=== PATIENT | male | born 1960 | race Caucasian/White ===

== ENCOUNTER 2016-04-24 09:52 | Inpatient (IN) | payer OTHER ==
[~2016-04-24] VITALS: Ht 177.8 cm; Wt 72.7 kg
[~2016-04-24 09:52] MED LIST: ASCO500C7 PO; BACL20TA PO; DIAZ10TA4 PO; FENO145T19 PO; FLUT16SP17 NASAL; GABA300C16 PO; METF-382 PO; MULTI PO; SAN30GM TOP; [UNRECOGNIZED DRUG - CODE] IV*
[2016-04-24] MEDS ORDERED: CEFEPIME 1GM/50 ML (PMX) 50 ML IVPB ONE (10:30)
[2016-04-24] MEDS ORDERED: IBUPROFEN 600 MG TAB PO ONE (10:30)
[2016-04-24] MEDS ORDERED: SODIUM CHLORIDE 0.9% 1L BAG IV* STA (10:30)
[2016-04-24] MEDS ORDERED: VANCOMYCIN 1 GM (PMX) 250 ML IVPB ONE (10:30)
--- NOTE | 2016-04-24 10:54 | RADRPT ---
PROCEDURE: Chest Radiograph. CLINICAL INDICATION: Sepsis TECHNIQUE: Single frontal chest radiograph. COMPARISON: None available FINDINGS: The heart is magnified. The cardiomediastinal silhouette is within normal limits. No infiltrate o r effusion is seen. The bones are intact. IMPRESSION: No evidence of acute cardiopulmonary disease. RPTAT: KK .Grey Mathews MD, MD Date Time Electronically viewed and signed by .Grey Mathews MD, MD on 04/24/2016 10:54 .B/
[2016-04-24] MEDS ORDERED: ALBU18HF INHALATION (11:30)
[2016-04-24] MEDS ORDERED: METF500T3 PO (11:31)
[2016-04-24] MEDS ORDERED: FENO145T19 PO (11:31)
[2016-04-24] MEDS ORDERED: BACL20TA PO (11:31)
[2016-04-24] MEDS ORDERED: GABA300C16 PO (11:31)
[2016-04-24] MEDS ORDERED: FLUT16SP17 NASAL (11:32)
[2016-04-24] MEDS ORDERED: DIPH25CA6 PO (11:32)
[2016-04-24 11:48] LABS: BASOPHILS % 0.2 % (0.0-2.0); EOSINOPHILS # 0.1 10^3/ul (0.0-0.5); EOSINOPHILS % 1.5 % (0.0-7.0); HEMATOCRIT 34.7 % (42.0-52.0); LYMPHOCYTES # 1.3 10^3/ul (0.8-2.9); LYMPHOCYTES % 15.4 % (15.0-51.0); MEAN CORPUSCULAR HEMOGLOBIN 31.7 pg (29.0-33.0); MEAN CORPUSCULAR HGB CONC 34.7 g/dl (32.0-37.0); MEAN CORPUSCULAR VOLUME 91.4 fl (82.0-101.0); MEAN PLATELET VOLUME 8.8 fl (7.4-10.4); MONOCYTE # 0.6 10^3/ul (0.3-0.9); NEUTROPHIL # 6.2 10^3/ul (1.6-7.5); NEUTROPHILS % 75.9 % (39.0-77.0); PLATELET COUNT 176 10^3/UL (140-440); RED BLOOD COUNT 3.79 10^6/ul (4.70-6.10); RED CELL DISTRIBUTION WIDTH 13.6 % (11.5-14.5); UNCORRECTED WBC 8.2 10^3/ul (4.8-10.8); WHITE BLOOD COUNT 8.2 10^3/ul (4.8-10.8)
[2016-04-24 11:49] LABS: INR 0.97; PROTIME 12.9 Sec (12.2-14.2)
[2016-04-24 11:50] LABS: CONDITION 1; PARTIAL THROMBOPLASTIN TIME 37.5 Sec (25.0-35.0)
[2016-04-24 11:51] LABS: ALBUMIN 3.8 g/dl (3.3-4.9); CHLORIDE 96 mmol/L (97-110); SODIUM 137 mmol/L (135-144)
[2016-04-24 11:52] LABS: POTASSIUM 3.4 mmol/L (3.5-5.1)
[2016-04-24 11:53] LABS: ADD UMIC YES; URINE BILIRUBIN (Dip) NEGATIVE (NEGATIVE); URINE BLOOD (Dip) TRACE (NEGATIVE); URINE COLOR LT. YELLOW (YELLOW); URINE GLUCOSE (Dip) NEGATIVE (NEGATIVE); URINE KETONES (Dip) NEGATIVE (NEGATIVE); URINE LEUKOCYTE ESTERASE (Dip) 3+ (NEGATIVE); URINE NITRITE (Dip) NEGATIVE (NEGATIVE); URINE TOTAL PROTEIN (Dip) NEGATIVE (NEGATIVE); URINE UROBILINOGEN (Dip) 0.2 E.U./dL (0.1-1.0)
[2016-04-24 11:54] LABS: ALANINE AMINOTRANSFERASE 25 IU/L (13-69); ALBUMIN/GLOBULIN RATIO 1.11; ALKALINE PHOSPHATASE 65 IU/L (42-121); ANION GAP 15 (8-16); ASPARTATE AMINO TRANSFERASE 17 IU/L (15-46); BILIRUBIN,INDIRECT 0.3 mg/dl (0-1.1); BILIRUBIN,TOTAL 0.3 mg/dl (0.2-1.3); BLOOD UREA NITROGEN 9 mg/dl (7-20); CALCIUM 9.4 mg/dl (8.4-10.2); CARBON DIOXIDE 29 mmol/L (21-31); GLUCOSE 104 mg/dl (70-220); TOTAL PROTEIN 7.2 g/dl (6.1-8.1)
[2016-04-24 12:01] LABS: BACTERIA,URINE MODERATE
[2016-04-24 12:10] LABS: TROPONIN-I < 0.012 ng/ml (0.00-0.12)
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
[2016-04-24] MEDS ORDERED: POTASSIUM CHLORIDE (SR) 20 MEQ TAB PO STA (14:01)
[2016-04-24] MEDS: DOCUSATE SODIUM 100 MG CAP PO SCH ×2 (14:30→22:03)
[2016-04-24] MEDS ORDERED: ONDANSETRON 4 MG INJ IV PRN (14:30)
[2016-04-24] MEDS ORDERED: ALBUTEROL HFA 8 GM INHALER INH PRN (14:30)
[2016-04-24] MEDS ORDERED: VANCOMYCIN IV PER PHARMACY XX SCH (14:30)
[2016-04-24] MEDS ORDERED: morphine 2 MG INJ IV PRN (14:30)
[2016-04-24] MEDS ORDERED: DIPHENHYDRAMINE 25 MG CAP PO PRN (14:30)
[2016-04-24] MEDS: FAMOTIDINE 20 MG TAB PO SCH ×2 (14:39→22:03)
[2016-04-24] MEDS ORDERED: GLUCOSE GEL 15 GRAM TUBE BUCCAL PRN (15:00)
[2016-04-24] MEDS ORDERED: GLUCAGON 1 MG INJ IM PRN (15:00)
[2016-04-24] MEDS ORDERED: DEXTROSE 50% 50 ML SYRINGE IV PRN ×2 (15:00)
[2016-04-24] MEDS ORDERED: GLUCOSE GEL 15 GRAM TUBE PO PRN ×2 (15:00)
[2016-04-24] MEDS: SOD CHLORIDE 0.9% 1,000 ML IV SCH ×2 (15:50→22:02)
[2016-04-24 17:00] VITALS: TEMP 98.5
[2016-04-24] MEDS: INSULIN ASPART [NOVOLOG] 3 ML PEN SC SCH ×2 (18:00→21:00)
[2016-04-24] MEDS: metFORMIN 500 MG TAB PO SCH (18:31)
[2016-04-24 18:58] VITALS: BP 152/81; PULSE 74; RESP 18
[2016-04-24 18:59] VITALS: Ht 177.8 cm; Wt 72.7 kg
[2016-04-24 19:14] VITALS: PULSE 75
[2016-04-24 19:53] VITALS: BP 149/79; RESP 18
[2016-04-24 20:47] VITALS: PULSE 70
[2016-04-24] MEDS: FENOFIBRATE 145 MG TAB PO SCH (22:03)
[2016-04-24] MEDS: GABAPENTIN 300 MG CAP PO SCH (22:03)
[2016-04-24] MEDS: VANCOMYCIN 1 GM in NS 250 ML IVPB SCH (22:03)
[2016-04-24] MEDS: ENOXAPARIN 30 MG/0.3 ML SYG SC SCH (22:15)
[2016-04-24 22:54] VITALS: BP 156/82; RESP 18
[2016-04-24] MEDS: BACLOFEN 10 MG TAB PO SCH (23:00)
[2016-04-24] MEDS: FLUTICASONE 0.05% 16 GM NAS SPRAY NASAL SCH (23:00)
[2016-04-25] MEDS: AZTREONAM 1 GM/NS (PMX) 50 ML IVPB SCH ×3 (00:43→21:34)
[2016-04-25] MEDS: SOD CHLORIDE 0.9% 1,000 ML IV SCH ×3 (04:41→17:20)
[2016-04-25 06:03] LABS: BASOPHILS % 0.6 % (0.0-2.0); EOSINOPHILS # 0.2 10^3/ul (0.0-0.5); EOSINOPHILS % 4.1 % (0.0-7.0); HEMATOCRIT 32.3 % (42.0-52.0); LYMPHOCYTES # 0.8 10^3/ul (0.8-2.9); MEAN CORPUSCULAR HEMOGLOBIN 31.9 pg (29.0-33.0); MEAN CORPUSCULAR HGB CONC 34.1 g/dl (32.0-37.0); MEAN CORPUSCULAR VOLUME 93.6 fl (82.0-101.0); MEAN PLATELET VOLUME 8.4 fl (7.4-10.4); MONOCYTE # 0.4 10^3/ul (0.3-0.9); MONOCYTES % 9.5 % (0.0-11.0); NEUTROPHILS % 67.8 % (39.0-77.0); PLATELET COUNT 168 10^3/UL (140-440); RED BLOOD COUNT 3.45 10^6/ul (4.70-6.10); RED CELL DISTRIBUTION WIDTH 13.9 % (11.5-14.5); UNCORRECTED WBC 4.4 10^3/ul (4.8-10.8); WHITE BLOOD COUNT 4.4 10^3/ul (4.8-10.8)
[2016-04-25 06:21] LABS: CONDITION 1
[2016-04-25 06:27] LABS: POTASSIUM 3.8 mmol/L (3.5-5.1)
[2016-04-25 06:29] LABS: CREATININE 0.44 mg/dl (0.61-1.24)
[2016-04-25 06:30] LABS: CALCIUM 8.7 mg/dl (8.4-10.2); MAGNESIUM 1.4 mg/dl (1.7-2.5)
[2016-04-25 07:44] VITALS: BP 141/89; RESP 18
[2016-04-25] MEDS: INSULIN ASPART [NOVOLOG] 3 ML PEN SC SCH ×4 (07:47→21:00)
[2016-04-25] MEDS: DOCUSATE SODIUM 100 MG CAP PO SCH ×2 (08:22→21:35)
[2016-04-25] MEDS: FAMOTIDINE 20 MG TAB PO SCH ×2 (08:22→21:35)
[2016-04-25] MEDS: metFORMIN 500 MG TAB PO SCH ×2 (08:22→17:19)
[2016-04-25] MEDS: GABAPENTIN 300 MG CAP PO SCH ×3 (08:22→21:35)
[2016-04-25] MEDS: BACLOFEN 10 MG TAB PO SCH ×3 (08:22→21:35)
[2016-04-25] MEDS: FENOFIBRATE 145 MG TAB PO SCH ×2 (08:22→21:35)
[2016-04-25] MEDS: ENOXAPARIN 30 MG/0.3 ML SYG SC SCH (08:29)
[2016-04-25] MEDS: VANCOMYCIN 1 GM in NS 250 ML IVPB SCH (10:04)
[2016-04-25] MEDS ORDERED: MAGNESIUM SULFATE 2 GM/50 ML 50 ML IVPB ONE (11:00)
[2016-04-25 11:29] LABS: ADD UMIC YES; URINE BILIRUBIN (Dip) NEGATIVE (NEGATIVE); URINE BLOOD (Dip) 2+ (NEGATIVE); URINE COLOR LT. YELLOW (YELLOW); URINE GLUCOSE (Dip) NEGATIVE (NEGATIVE); URINE KETONES (Dip) NEGATIVE (NEGATIVE); URINE LEUKOCYTE ESTERASE (Dip) 2+ (NEGATIVE); URINE NITRITE (Dip) NEGATIVE (NEGATIVE); URINE TOTAL PROTEIN (Dip) NEGATIVE (NEGATIVE); URINE UROBILINOGEN (Dip) 0.2 E.U./dL (0.1-1.0)
[2016-04-25 12:19] LABS: BACTERIA,URINE MODERATE
[2016-04-25] MEDS ORDERED: VANCOMYCIN 1 GM in NS 250 ML IVPB SCH (18:00)
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
[2016-04-25 19:26] VITALS: BP 126/76; RESP 20
[2016-04-25 20:00] VITALS: BP 130/62; RESP 18
[2016-04-25] MEDS: FLUTICASONE 0.05% 16 GM NAS SPRAY NASAL SCH (21:34)
[2016-04-26] MEDS: SOD CHLORIDE 0.9% 1,000 ML IV SCH ×2 (05:51→14:30)
[2016-04-26 07:06] LABS: POTASSIUM 3.4 mmol/L (3.5-5.1)
[2016-04-26 07:08] LABS: CREATININE 0.48 mg/dl (0.61-1.24)
[2016-04-26 07:09] LABS: CALCIUM 8.8 mg/dl (8.4-10.2)
[2016-04-26 07:11] LABS: BASOPHILS % 0.4 % (0.0-2.0); EOSINOPHILS # 0.2 10^3/ul (0.0-0.5); EOSINOPHILS % 4.7 % (0.0-7.0); HEMATOCRIT 33.2 % (42.0-52.0); HEMOGLOBIN 11.5 g/dl (14.0-18.0); LYMPHOCYTES # 1.2 10^3/ul (0.8-2.9); LYMPHOCYTES % 24.9 % (15.0-51.0); MEAN CORPUSCULAR HEMOGLOBIN 32.1 pg (29.0-33.0); MEAN CORPUSCULAR HGB CONC 34.6 g/dl (32.0-37.0); MEAN CORPUSCULAR VOLUME 92.7 fl (82.0-101.0); MEAN PLATELET VOLUME 8.2 fl (7.4-10.4); MONOCYTE # 0.4 10^3/ul (0.3-0.9); MONOCYTES % 8.5 % (0.0-11.0); NEUTROPHIL # 2.9 10^3/ul (1.6-7.5); NEUTROPHILS % 61.5 % (39.0-77.0); PLATELET COUNT 206 10^3/UL (140-440); RED BLOOD COUNT 3.58 10^6/ul (4.70-6.10); RED CELL DISTRIBUTION WIDTH 13.6 % (11.5-14.5); UNCORRECTED WBC 4.7 10^3/ul (4.8-10.8); WHITE BLOOD COUNT 4.7 10^3/ul (4.8-10.8)
[2016-04-26] MEDS: INSULIN ASPART [NOVOLOG] 3 ML PEN SC SCH ×2 (07:34→12:15)
[2016-04-26 07:37] VITALS: BP 134/73; RESP 20
[2016-04-26 07:39] LABS: CONDITION 1
[2016-04-26] MEDS: FENOFIBRATE 145 MG TAB PO SCH (08:27)
[2016-04-26] MEDS: DOCUSATE SODIUM 100 MG CAP PO SCH (08:27)
[2016-04-26] MEDS: metFORMIN 500 MG TAB PO SCH (08:27)
[2016-04-26] MEDS: GABAPENTIN 300 MG CAP PO SCH ×2 (08:28→12:25)
[2016-04-26] MEDS: FAMOTIDINE 20 MG TAB PO SCH (08:28)
[2016-04-26] MEDS: BACLOFEN 10 MG TAB PO SCH ×2 (08:28→12:26)
[2016-04-26] MEDS: ENOXAPARIN 30 MG/0.3 ML SYG SC SCH (08:34)
[2016-04-26] MEDS: AZTREONAM 1 GM/NS (PMX) 50 ML IVPB SCH (08:49)
[2016-04-26] MEDS ORDERED: VANCOMYCIN 1 GM in NS 250 ML IVPB SCH (10:00)
--- NOTE | 2016-04-26 10:08 | PDOCDIS ---
Discharge Instructions DIAGNOSIS Discharge Diagnosis: Urinary tract infection CONDITION Patient Condition: Stable HOME CARE INSTRUCTIONS: Special Diet: 1800 ADA FOLLOW UP/APPOINTMENTS Appointments Call Dr Walker's office for routine followup and Catheter care Name, Degree: Renan Walker MD Specialty: Urology Comments: Office Address : [address] [facility] [address] [place] [id number] Office OTHER ORDERS: Other Orders: Please stop smoking tobacco and Cocaine!!! If you have already stopped, Good for you!!!. It is however an ongoing process. If you need help or resources, please let someone know before you leave. We are here to help you. It has been associated with a lot of disease processes and is not favorable for healing. LEXUS MEI Apr 26, 2016 10:08
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
[2016-04-26] MEDS ORDERED: POTASSIUM CHLORIDE 250 ML IVPB ONE (11:30)
[2016-04-26] MEDS ORDERED: LEVO500T10 PO (14:24)
--- NOTE | 2016-04-26 15:16 | PN ---
DATE: 04/26/2016 SUBJECTIVE: The patient has a suprapubic tube that needs to be changed and a urinary tract infectio n that is being treated. PHYSICAL EXAMINATION: GENERAL: The patient is alert, awake, and comfortable. VITAL SIGNS: Temperature is 98.2, pulse 67, respirations 20, blood pressure 134/73. ABDOMEN: The suprapubic tube is draining well, clear urine. CBC shows a white count of 4.7, hemoglobin 11.5, hematocrit 33.2. BUN is 8, creatinine is 0.48. So dium 145, potassium 3.4, chloride 105, CO2 25. The urine culture shows gram-negative rods and mixed gram-positive organisms, and this is most likely colonization of the suprapubic tract. From a urological standpoint, he is doing well. If we plan to send him home that is okay with me. Hi s suprapubic tube needs to be changed in about 2 weeks, and his has been changing it every 2 we eks at home. She was trained to do that before and she will continue to do that as well. If there is a need for him to come and see me in the office, then they will have to refer him from his [facility]. Dictated By: SISI BRIONES/SANYA Conf#: [id number] DID#: [id number]
== END 2016-04-26 19:00 | disposition home or self-care (01) | DRG 698 ==
LOC: E/R 09:52 → MERGE 12:19 → TEL 12:19 → MS2 22:45
PROVIDERS: ADMIT Family Medicine; ATTEND Family Medicine
PROC: 0T2BX0Z Change Drainage Device in Bladder, External Approach (ICD-10-PCS; principal; 2016-04-24)
DX: N99.511 Cystostomy infection (principal); L89.313 Pressure ulcer of right buttock, stage 3; G82.20 Paraplegia, unspecified; I95.9 Hypotension, unspecified; Z93.0 Tracheostomy status; N30.00 Acute cystitis without hematuria; T83.518A Infection and inflammatory reaction due to other urinary catheter, initial encounter; L03.312 Cellulitis of back [any part except buttock and flank]; N31.9 Neuromuscular dysfunction of bladder, unspecified; B96.4 Proteus (mirabilis) (morganii) as the cause of diseases classified elsewhere; Y84.6 Urinary catheterization as the cause of abnormal reaction of the patient, or of later complication, without mention of misadventure at the time of the procedure; Y82.8 Other medical devices associated with adverse incidents; Y92.019 Unspecified place in single-family (private) house as the place of occurrence of the external cause; B95.2 Enterococcus as the cause of diseases classified elsewhere; Z16.35 Resistance to multiple antimicrobial drugs; E78.5 Hyperlipidemia, unspecified; F14.10 Cocaine abuse, uncomplicated; B18.2 Chronic viral hepatitis C; E87.6 Hypokalemia; R73.03 Prediabetes; F17.210 Nicotine dependence, cigarettes, uncomplicated; Z93.3 Colostomy status
CPT/HCPCS: 36415; 71010; 80048; 80053; 80202; 81001; 81003; 82962; 83036; 83605; 83690; 83735; 84484; 85025; 85610; 85730; 87040; 87086; 93005; 96374; 96375; J0692; J1650; J1815; J2270; J3370; J3475; J3480; J7030

== ENCOUNTER 2016-07-04 07:50 | Inpatient (IN) | payer OTHER ==
[~2016-07-04] VITALS: Ht 177.8 cm; Wt 67.2 kg
[~2016-07-04 07:50] MED LIST changes: +ALBU18HF INHALATION; +DIPH25CA6 PO; +LEVO500T10 PO; +METF500T3 PO
[2016-07-04] MEDS ORDERED: SODIUM CHLORIDE 0.9% 1L BAG IV* STA (08:31)
[2016-07-04] MEDS ORDERED: ONDANSETRON 4 MG INJ IV STA (08:46)
[2016-07-04] MEDS ORDERED: morphine 4 MG/ML VIAL IV STA (08:46)
--- NOTE | 2016-07-04 09:11 | RADRPT ---
PROCEDURE: XR Chest. CLINICAL INDICATION: Chest pain TECHNIQUE: Single frontal view of the chest was obtained COMPARISON: 01/15/16 FINDINGS: The heart is enlarged. The thoracic aorta is calcified. There are mild linear bibasilar atelectatic changes. The lungs are otherwise clear. There is no pleural effusion or pneumothorax. RPTAT: AA IMPRESSION: Mild cardiomegaly. Calcified aorta consistent with atherosclerotic disease. .David Oconnell MD, MD Date Time Electronically viewed and signed by .David Oconnell MD, on 07/04/2016 09:11 .S/
[2016-07-04 09:26] LABS: ADD SCAN DIFF NO
[2016-07-04 09:28] LABS: BASOPHILS % 0.6 % (0.0-2.0); EOSINOPHILS # 0.2 10^3/ul (0.0-0.5); EOSINOPHILS % 4.5 % (0.0-7.0); HEMATOCRIT 39.4 % (42.0-52.0); HEMOGLOBIN 13.3 g/dl (14.0-18.0); LYMPHOCYTES % 20.2 % (15.0-51.0); MEAN CORPUSCULAR HEMOGLOBIN 31.7 pg (29.0-33.0); MEAN CORPUSCULAR HGB CONC 33.8 g/dl (32.0-37.0); MEAN CORPUSCULAR VOLUME 93.8 fl (82.0-101.0); MEAN PLATELET VOLUME 10.1 fl (7.4-10.4); MONOCYTE # 0.4 10^3/ul (0.3-0.9); MONOCYTES % 7.9 % (0.0-11.0); NEUTROPHIL # 3.1 10^3/ul (1.6-7.5); NEUTROPHILS % 65.7 % (39.0-77.0); PLATELET COUNT 242 10^3/UL (140-415); RED CELL DISTRIBUTION WIDTH 13.4 % (11.5-14.5); WHITE BLOOD COUNT 4.7 10^3/ul (4.8-10.8)
[2016-07-04 09:36] LABS: ALBUMIN 4.1 g/dl (3.3-4.9); POTASSIUM 3.8 mmol/L (3.5-5.1)
[2016-07-04 09:38] LABS: CREATININE 0.49 mg/dl (0.61-1.24)
[2016-07-04 09:39] LABS: ALBUMIN/GLOBULIN RATIO 1.13; BILIRUBIN,INDIRECT 0.2 mg/dl (0-1.1); BILIRUBIN,TOTAL 0.2 mg/dl (0.2-1.3); INR 0.9; PROTIME 12.1 Sec (12.2-14.2); PT RATIO 0.9; TOTAL PROTEIN 7.7 g/dl (6.1-8.1)
[2016-07-04 09:40] LABS: CALCIUM 9.5 mg/dl (8.4-10.2); PARTIAL THROMBOPLASTIN TIME 31.7 Sec (25.0-35.0)
[2016-07-04 09:51] LABS: TROPONIN-I 0.016 ng/ml (0.00-0.12)
--- NOTE | 2016-07-04 10:47 | RADRPT ---
PROCEDURE: CT Abdomen and Pelvis without contrast. CLINICAL INDICATION: Sepsis. Abdominal distension. TECHNIQUE: CT scan of the abdomen and pelvis without contrast was performed on a multidetector hig h-resolution CT scanner. The patient was scanned without intravenous contrast. Coronal and sagittal reformatted images were obtained from the axial source images. Images were reviewed on a high-resol [employer] PACS workstation. The total exam CTDI equals 12.04 mGy and the total exam DLP equals 713.50 mG y-cm. One or more of the following dose reduction techniques were used: Automated exposure control. Adjustment of the mA and/or kV according to patient size. Use of iterative reconstruction technique. COMPARISON: 07/12/2014 FINDINGS: CT abdomen: The lung bases are remarkable for emphysema more evident in the inferior right upper lobe. The hear t size is normal, without pericardial thickening or effusion. The liver is normal in size and densi ty without focal mass or intrahepatic biliary dilatation. The spleen is normal in size and homogene ous in density. The stomach is partially collapsed, but is grossly unremarkable. The pancreas as v isualized is normal. The gallbladder is surgically absent. There is no evidence for biliary dilata tion. The adrenal glands are symmetric and normal. The kidneys are symmetrically unremarkable as w ell. There are multiple punctate nonobstructing stones in the right kidney. There is approximately 2 cm exophytic cyst in the lower pole right kidney. The aorta is of normal caliber. Aortic vascular calcifications are present. There is no retroperit wolfe lymphadenopathy. The wilman hepatis region is clear. Right lower quadrant colostomy is again i dentified. There is enteric contrast in the transverse, and left colon down into the rectum. There is small caliber descending and proximal sigmoid colon. A few scattered diverticula are seen in the sigmoid colon without evidence of acute diverticulitis. CT pelvis: The small bowel loops situated within the pelvis are unremarkable. There is a normal appendix. The pelvic organs are normal. The pelvic sidewalls and inguinal regions are clear. No mass, lymphade nopathy, or free fluid is seen. No acute inflammation is seen. The surrounding osseous structures a re remarkable for degenerative spondylosis of the spine. No osteolytic or osteoblastic lesion is de tected. Significant atrophy of the bilateral gluteal, and thigh muscles . Small soft tissue defect is again identified around the right greater trochanter. IMPRESSION: 1. No mass, lymphadenopathy, or focal acute inflammatory process is identified. 2. Right lower quadrant colostomy in place. Enteric contrast is identified in the transverse, left colon and the rectum. No abnormal wall thickening of the colon with small caliber of the descendin g and sigmoid colon likely related to underdistension. 3. Multiple punctate nonobstructing right renal stones. 4. Status post cholecystectomy. No biliary ductal dilatation. 5. Severe atrophy of the pelvic musculature. Soft tissue thickening along the lateral aspect of th e greater trochanter with small soft tissue defect on the right, not significantly changed. 6. Aortoiliac atherosclerosis. RPTAT: BB .Mary Anne Munoz MD, Date Time Electronically viewed and signed by .Mary Anne Munoz MD, on 07/04/2016 10:47 .O/
[2016-07-04] MEDS ORDERED: FLUT16SP17 NASAL (11:04)
--- NOTE | 2016-07-04 11:06 | ERA ---
ER Documentation Chief Complaint Date/Time DATE: 07/04/16 TIME: 11:04 Chief Complaint DYSURIA X 5 DAYS HPI 55-year-old male with a history of colostomy, suprapubic catheter and recurrent urinary tract infections who presents to the emergency room complaining of abdominal pain. [employer] was used. The patient describes lower abdominal pain. He also describes possible dysuria and malodorous urine. He denies any fevers or chills, no flank pain. ROS All systems reviewed and are negative except as per history of present illness. Medications Home Meds Reported Medications Lorazepam* (Lorazepam*) 0.5 Mg Tablet, 0.5 MG PO Q8 Y for ANXIETY, TAB 07/04/16 Fluticasone Propionate* (Fluticasone Propionate* Nasal) 50 Mcg/[place] - 16 Gm [place].susp, 2 SPRAYS NASAL BID, #1 BOTTLE TO EACH NOSTRIL 07/04/16 Diphenhydramine Hcl* (Diphenhydramine Hcl*) 25 Mg Capsule, 25 MG PO QHS Y for SLEEP, CAP 04/24/16 Baclofen* (Baclofen*) 20 Mg Tablet, 20 MG PO TID, TAB 04/24/16 Albuterol Sulfate* (Ventolin HFA*) 18 Gm Hfa.aer.ad, 2 PUFF INHALATION Q4H Y for WHEEZING AND RESP DISTRESS, #1 INHALER 04/24/16 Multivitamins* (Theragran*) 1 Tab Tab, 1 TAB PO DAILY, TAB 01/14/16 Ascorbic Acid* (Vitamin C*) 500 Mg Capsule.sa, 500 MG PO DAILY, CAP 01/14/16 Fenofibrate Nanocrystallized* (Fenofibrate*) 145 Mg Tablet, 145 MG PO DAILY, TAB 01/14/16 Metformin Hcl* (Metformin Hcl*) 500 Mg Tablet, 500 MG PO BID, TAB 12/19/13 Gabapentin* (Gabapentin*) 300 Mg Capsule, 300 MG PO TID 06/08/13 Discontinued Reported Medications Fluticasone Propionate* (Fluticasone Propionate* Nasal) 50 Mcg/[place] - 16 Gm [place].susp, 2 SPRAYS NASAL QHS, #1 BOTTLE TO EACH NOSTRIL 04/24/16 Metformin Hcl* (Metformin Hcl* ER) 500 Mg Tab.sr.24h, 500 MG PO DAILY, #30 TAB 1/12/17 Gabapentin* (Gabapentin*) 300 Mg Capsule, 300 MG PO TID, #90 CAP 04/24/16 Fenofibrate Nanocrystallized* (Fenofibrate*) 145 Mg Tablet, 145 MG PO BID, TAB 04/24/16 Baclofen* (Baclofen*) 20 Mg Tablet, 20 MG PO QID, TAB 02/01/14 Diazepam* (Diazepam*) 10 Mg Tablet, 10 MG PO HS Y for ANXIETY, TAB 02/01/14 Fluticasone Propionate* (Fluticasone Propionate* Nasal) 50 Mcg/[place] - 16 Gm [place].susp, 1 SPRAY NASAL BID, EA TO EACH NOSTRIL 12/19/13 Discontinued Scripts Levofloxacin* (Levofloxacin*) 500 Mg Tablet, 500 MG PO DAILY for 8 Days, TAB Prov:LEXUS MEI 04/26/16 Amikacin Sulfate (Amikacin Sulfate) 1,000 Mg/4 Ml Vial, 1000 MG IV* Q24H for 10 Days, VIAL Prov:KENNY LOU MD 01/16/16 Collagenase* (Santyl*) 30 Gm Oint..gm., 1 APPLIC TOP DAILY for 30 Days, TUB Prov:KENNY LOU MD 01/16/16 Allergies Allergies: Coded Allergies: ceftriaxone (Verified Allergy, Severe, Convulsions, 07/04/16) PATIENT TOOK CEFEPIME WITHOUT A PROBLEM Sulfa (Sulfonamide Antibiotics) (Verified Allergy, Unknown, RASHES, ) ceftriaxone sodium (Verified Allergy, Unknown, 07/04/16) nitrofurantoin (Unverified Allergy, Unknown, 07/04/16) sulfamethoxazole (Verified Allergy, Unknown, RASHES, 07/04/16) trimethoprim (Verified Allergy, Unknown, RASHES, 07/04/16) PMhx/Soc History of Surgery: Yes (colostomy ) Anesthesia Reaction: No Hx Neurological Disorder: Yes (paraplegic C5 injury) Hx Respiratory Disorders: No Hx Cardiac Disorders: No Hx Psychiatric Problems: No Hx Miscellaneous Medical Probl: Yes (Hep C, cirrhosis, diverting colostomy) Hx Alcohol Use: No Hx Substance Use: Yes (TOBACCO) Hx Tobacco Use: Yes Smoking Status: Current every day smoker FmHx Family History: No diabetes Physical Exam Vitals Vital Signs Date Time Temp Pulse Resp B/P Pulse Ox O2 Delivery O2 Flow Rate FiO2 07/04/16 07:55 98.0 63 18 191/100 99 Physical Exam General: Well developed, well nourished, no acute distress Head: Normocephalic, atraumatic. Eyes: Pupils equally reactive, EOM intact ENT: Moist mucous membranes Neck: Supple, no lymphadenopathy Respiratory: Lungs clear bilaterally, no distress Cardiovascular: RRR, no murmurs, rubs, or gallops Abdominal: Soft, ostomy with good output, mild diffuse tenderness : Deferred MSK: No edema, no unilateral swelling, 5/5 strength Neurologic: Alert and oriented, moving all extremities, normal speech, no focal weakness, no cerebellar signs Skin: No rash Psych: Normal mood Result Diagram: 07/04/16 0900 07/04/16 0900 Results 24 hrs Laboratory Tests Test 07/04/16 09:00 07/04/16 11:15 07/04/16 11:17 White Blood Count 4.710^3/ul Red Blood Count 4.2010^6/ul Hemoglobin 13.3g/dl Hematocrit 39.4% Mean Corpuscular Volume 93.8fl Mean Corpuscular Hemoglobin 31.7pg Mean Corpuscular Hemoglobin Concent 33.8g/dl Red Cell Distribution Width 13.4% Platelet Count 16178^3/UL Mean Platelet Volume 10.1fl Neutrophils % 65.7% Lymphocytes % 20.2% Monocytes % 7.9% Eosinophils % 4.5% Basophils % 0.6% Nucleated Red Blood Cells % 0.0/100WBC Neutrophils # 3.110^3/ul Lymphocytes # 1.010^3/ul Monocytes # 0.410^3/ul Eosinophils # 0.210^3/ul Basophils # 0.010^3/ul Nucleated Red Blood Cells # 0.010^3/ul Prothrombin Time 12.1Sec Prothrombin Time Ratio 0.9 INR International Normalized Ratio 0.90 Activated Partial Thromboplast Time 31.7Sec Sodium Level 140mmol/L Potassium Level 3.8mmol/L Chloride Level 98mmol/L Carbon Dioxide Level 29mmol/L Anion Gap 17 Blood Urea Nitrogen 8mg/dl Creatinine 0.49mg/dl Glucose Level 125mg/dl Lactic Acid Level 2.0mmol/L 2.0mmol/L Calcium Level 9.5mg/dl Total Bilirubin 0.2mg/dl Direct Bilirubin 0.00mg/dl Indirect Bilirubin 0.2mg/dl Aspartate Amino Transf (AST/SGOT) 34IU/L Alanine Aminotransferase (ALT/SGPT) 48IU/L Alkaline Phosphatase 77IU/L Troponin I 0.016ng/ml Total Protein 7.7g/dl Albumin 4.1g/dl Globulin 3.60g/dl Albumin/Globulin Ratio 1.13 Urine Color LT. YELLOW Urine Clarity CLEAR Urine pH 6.5 Urine Specific [place] <=1.005 Urine Ketones NEGATIVE Urine Nitrite POSITIVE Urine Bilirubin NEGATIVE Urine Urobilinogen 0.2 E.U./dL Urine Leukocyte Esterase 1+ Urine Microscopic RBC 2-5/HPF Urine Microscopic WBC 5-10/HPF Urine Bacteria MODERATE Urine Hemoglobin NEGATIVE Urine Glucose NEGATIVE% Urine Total Protein NEGATIVE Current Medications Medications (Trade) Dose Ordered Sig/Evan Route PRN Reason Start Time Stop Time Status Last Admin Dose Admin Sodium Chloride (NS) 2,480 ml BOLUS OVER 2 HOURS STAT IV* 07/04/16 08:31 07/04/16 08:32 DC 07/04/16 09:05 Morphine Sulfate (morphine) 4 mg ONCE STAT IV 07/04/16 08:46 07/04/16 08:47 DC 07/04/16 09:05 Ondansetron HCl (Zofran Inj) 4 mg ONCE STAT IV 07/04/16 08:46 07/04/16 08:47 DC 07/04/16 09:06 Amikacin Sulfate (Amikacin Iv Per Pharmacy) AMIKACIN PER PHARMACY NOTE XX 07/04/16 12:30 Procedures/MDM EKG, MONITORS, & DIAGNOSTIC IMAGING: CT abdomen and pelvis: IMPRESSION: 1. No mass, lymphadenopathy, or focal acute inflammatory process is identified. 2. Right lower quadrant colostomy in place. Enteric contrast is identified in the transverse, left colon and the rectum. No abnormal wall thickening of the colon with small caliber of the descending and sigmoid colon likely related to underdistension. 3. Multiple punctate nonobstructing right renal stones. 4. Status post cholecystectomy. No biliary ductal dilatation. 5. Severe atrophy of the pelvic musculature. Soft tissue thickening along the lateral aspect of the greater trochanter with small soft tissue defect on the right, not significantly changed. 6. Aortoiliac atherosclerosis. LAB INTERPRETATION: Normal lactic acid, slight leukopenia MEDICAL DECISION MAKING: The patient presents with abdominal pain. He does have a history of complicated urinary tract infections. He also has multiple allergies. The patient will benefit from sepsis screening, CT imaging of the abdomen and pelvis to rule out obstruction and urinalysis testing. Urine culture has been sent. Patient given pain medication. ER COURSE: The patient's urinalysis is consistent with UTI. Reviewing the patient's prior urine cultures it appears the patient regularly has multidrug-resistant organisms. Unfortunately the patient cannot take ceftriaxone. This leaves amikacin is the only likely antibiotic to be successful in this patient. IV amikacin was ordered per pharmacy to dose. The patient has no evidence of sepsis. He is hemodynamically stable. The patient will benefit from inpatient hospitalization, culture monitoring, infectious disease consultation and consideration for outpatient management with PICC line. I kept the patient and/or family informed of laboratory and diagnostic imaging results throughout the emergency room course. DISPOSITION PLAN: Medical surgical admission for management of complicated urinary tract infection CONSULTATION: Accepting care team and consultations: I discussed the current laboratory data, diagnostic imaging and emergency care provided. Admitting team: Dr. Chaudhari Admitting team indication: Insurance directed Departure Diagnosis: Primary Impression: Suprapubic catheter Additional Impressions: Urinary tract infection Qualified Code: N39.0 - Urinary tract infection without hematuria, site unspecified Generalized abdominal pain Condition: Stable EMANUEL MEAD MD Jul 04, 2016 11:05
[2016-07-04] MEDS ORDERED: LORA0.5T PO (11:07)
[2016-07-04 11:37] LABS: ADD UMIC YES; URINE BILIRUBIN (Dip) NEGATIVE (NEGATIVE); URINE BLOOD (Dip) NEGATIVE (NEGATIVE); URINE COLOR LT. YELLOW (YELLOW); URINE GLUCOSE (Dip) NEGATIVE (NEGATIVE); URINE KETONES (Dip) NEGATIVE (NEGATIVE); URINE LEUKOCYTE ESTERASE (Dip) 1+ (NEGATIVE); URINE NITRITE (Dip) POSITIVE (NEGATIVE); URINE TOTAL PROTEIN (Dip) NEGATIVE (NEGATIVE); URINE UROBILINOGEN (Dip) 0.2 E.U./dL (0.1-1.0)
[2016-07-04 11:54] LABS: BACTERIA,URINE MODERATE
[2016-07-04] MEDS ORDERED: ONDANSETRON 4 MG INJ IV PRN ×2 (12:30→19:30)
[2016-07-04] MEDS ORDERED: ACETAMINOPHEN 325 MG TAB PO PRN ×2 (12:30→19:30)
[2016-07-04] MEDS ORDERED: AMIKACIN IV PER PHARMACY XX SCH (12:30)
[2016-07-04] MEDS ORDERED: LORAZEPAM 0.5 MG TAB PO PRN (14:30)
[2016-07-04] MEDS ORDERED: ALBUTEROL HFA 8 GM INHALER INH PRN (14:30)
[2016-07-04 14:55] VITALS: TEMP 98
[2016-07-04] MEDS ORDERED: GLUCOSE GEL 15 GRAM TUBE PO PRN ×2 (15:30)
[2016-07-04] MEDS ORDERED: GLUCOSE GEL 15 GRAM TUBE BUCCAL PRN (15:30)
[2016-07-04] MEDS ORDERED: GLUCAGON 1 MG INJ IM PRN (15:30)
[2016-07-04] MEDS ORDERED: DEXTROSE 50% 50 ML SYRINGE IV PRN ×2 (15:30)
[2016-07-04 16:22] VITALS: BP 144/100; PULSE 66; RESP 18
[2016-07-04 16:29] VITALS: Ht 177.8 cm; Wt 67.2 kg
[2016-07-04] MEDS: INSULIN ASPART [NOVOLOG] 3 ML PEN SC SCH ×2 (18:00→20:29)
[2016-07-04] MEDS ORDERED: AMIKACIN 500 MG in SOD CHLORIDE 0.9% 100 ML IVPB SCH (19:00)
[2016-07-04] MEDS ORDERED: AMIKACIN 1,000 MG in SOD CHLORIDE 0.9% 100 ML IVPB SCH (19:00)
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
[2016-07-04] MEDS ORDERED: DOCUSATE SODIUM 100 MG CAP PO PRN (19:30)
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
[2016-07-04] MEDS: SOD CHLORIDE 0.9% 1,000 ML IV SCH (20:24)
[2016-07-04] MEDS: FAMOTIDINE 20 MG TAB PO SCH (20:24)
[2016-07-04] MEDS: BACLOFEN 10 MG TAB PO SCH (20:24)
[2016-07-04] MEDS: GABAPENTIN 300 MG CAP PO SCH (20:24)
[2016-07-04] MEDS: DIPHENHYDRAMINE 25 MG CAP PO PRN (20:24)
[2016-07-04] MEDS: metFORMIN 500 MG TAB PO SCH (20:24)
[2016-07-04 20:26] VITALS: BP 129/68; RESP 16
[2016-07-04] MEDS: FLUTICASONE 0.05% 16 GM NAS SPRAY NASAL SCH (20:33)
[2016-07-05] MEDS: SOD CHLORIDE 0.9% 1,000 ML IV SCH (06:16)
[2016-07-05 08:00] VITALS: BP 139/78; RESP 18
[2016-07-05] MEDS: INSULIN ASPART [NOVOLOG] 3 ML PEN SC SCH ×4 (08:15→21:00)
[2016-07-05] MEDS: GABAPENTIN 300 MG CAP PO SCH ×3 (08:43→21:28)
[2016-07-05] MEDS: ASCORBIC ACID 500 MG TAB PO SCH (08:43)
[2016-07-05] MEDS: FAMOTIDINE 20 MG TAB PO SCH ×2 (08:43→21:28)
[2016-07-05] MEDS: MULTIVITAMINS THERAPEUTIC TAB PO SCH (08:43)
[2016-07-05] MEDS: FENOFIBRATE 145 MG TAB PO SCH (08:43)
[2016-07-05] MEDS: metFORMIN 500 MG TAB PO SCH ×2 (08:43→21:28)
[2016-07-05] MEDS: BACLOFEN 10 MG TAB PO SCH ×3 (08:43→21:28)
[2016-07-05] MEDS: ENOXAPARIN 40 MG/0.4 ML SYG SC SCH (08:55)
[2016-07-05 10:58] LABS: ADD SCAN DIFF NO
[2016-07-05 11:11] LABS: POTASSIUM 3.6 mmol/L (3.5-5.1)
[2016-07-05 11:14] LABS: CALCIUM 8.9 mg/dl (8.4-10.2); CREATININE 0.43 mg/dl (0.61-1.24)
[2016-07-05 11:15] LABS: MAGNESIUM 1.6 mg/dl (1.7-2.5)
[2016-07-05 11:18] LABS: BASOPHILS % 0.6 % (0.0-2.0); EOSINOPHILS # 0.2 10^3/ul (0.0-0.5); EOSINOPHILS % 4.4 % (0.0-7.0); HEMATOCRIT 37.8 % (42.0-52.0); HEMOGLOBIN 12.4 g/dl (14.0-18.0); LYMPHOCYTES # 1.1 10^3/ul (0.8-2.9); LYMPHOCYTES % 21.4 % (15.0-51.0); MEAN CORPUSCULAR HGB CONC 32.8 g/dl (32.0-37.0); MEAN CORPUSCULAR VOLUME 94.5 fl (82.0-101.0); MEAN PLATELET VOLUME 10.6 fl (7.4-10.4); MONOCYTE # 0.4 10^3/ul (0.3-0.9); MONOCYTES % 7.9 % (0.0-11.0); NEUTROPHIL # 3.2 10^3/ul (1.6-7.5); NEUTROPHILS % 64.5 % (39.0-77.0); PLATELET COUNT 199 10^3/UL (140-415); RED CELL DISTRIBUTION WIDTH 13.4 % (11.5-14.5)
[2016-07-05] MEDS: FLUTICASONE 0.05% 16 GM NAS SPRAY NASAL SCH ×2 (12:12→21:29)
--- NOTE | 2016-07-05 13:47 | PN ---
Date/Time of Note Date/Time of Note DATE: 07/05/16 TIME: 13:45 Assessment/Plan VTE Prophylaxis VTE Prophylaxis Intervention: LMWH Lines/Catheters IV Catheter Type (from Nrsg): Saline Lock Urinary Cath still in place: Yes (SUPRAPUBIC CATHETER) Reason Cath still needed: other (indicate) (Neurogenic bladder with Urinary retention ) Assessment/Plan Assessment/Plan 1. Acute recurrent Cystitis associate with suprapubic catheter 4. 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 Chronic neurogenic bladder s/p suprapubic catheter 6. S/p diverting colostomy 2/2 #4 7. Hx of 2 tracheostomies 8. Dyslipidemia 9. Pressure ulcer (small per patient) 10. Occasional Substance (cocaine ) / tobacco use 11. Hepatitis C: chronic 12. Non obstructing Nephrolithiasis PLAN: s/p Urolgoy consult for neurogenic bladder IV abx, IVF, Bp stable pain control Lovenox for DVT prophylaxis Subjective 24 Hr Interval Summary Free Text/Dictation S/p Urolgoy consult, Bp stable, afebrile, pain controlled Exam/Review of Systems Vital Signs Vitals Vital Signs Date Time Temp Pulse Resp B/P Pulse Ox O2 Delivery O2 Flow Rate FiO2 07/05/16 08:00 98.3 75 18 139/78 97 07/04/16 16:22 Room Air Intake and Output 07/04/16 07/04/16 07/05/16 15:00 23:00 07:00 Intake Total 344 ml 1200 ml Output Total 500 ml Balance -156 ml 1200 ml Exam Constitutional: alert, oriented, No distress Head: atraumatic, normocephalic Eyes: PERRL ENMT: mucosa pink and moist Neck: non-tender, supple Respiratory: clear to auscultation, diminished breath sounds, No crackles/rales, No wheezing Cardiovascular: regular rate and rhythm Gastrointestinal: bowel sounds, non-tender, other (colostomy , suprapubic cath , no cellulitis), soft Musculoskeletal: other (msc wasting in all 4 extremities. He's able to still somewhat use both upper extremities) Neurological: focal weakness (chronic paraplegic ) Skin: other ( Multiple Moles all over his back that look benign.) Results Result Diagram: 07/05/16 1036 07/05/16 1036 Results 24 hrs Laboratory Tests Test 07/04/16 17:22 07/04/16 20:28 07/05/16 08:02 07/05/16 10:36 Bedside Glucose 155 117 145 White Blood Count 5.0 Red Blood Count 4.00 L Hemoglobin 12.4 L Hematocrit 37.8 L Mean Corpuscular Volume 94.5 Mean Corpuscular Hemoglobin 31.0 Mean Corpuscular Hemoglobin Concent 32.8 Red Cell Distribution Width 13.4 Platelet Count 199 Mean Platelet Volume 10.6 H Neutrophils % 64.5 Lymphocytes % 21.4 Monocytes % 7.9 Eosinophils % 4.4 Basophils % 0.6 Nucleated Red Blood Cells % 0.0 Neutrophils # 3.2 Lymphocytes # 1.1 Monocytes # 0.4 Eosinophils # 0.2 Basophils # 0.0 Nucleated Red Blood Cells # 0.0 Sodium Level 136 Potassium Level 3.6 Chloride Level 102 Carbon Dioxide Level 25 Anion Gap 13 Blood Urea Nitrogen 6 L Creatinine 0.43 L Glucose Level 148 Calcium Level 8.9 Magnesium Level 1.6 L Test 07/05/16 12:09 Bedside Glucose 106 Medications Medications Current Medications Amikacin Sulfate (Amikacin Iv Per Pharmacy) AMIKACIN PER PHARMACY NOTE XX ; Start 07/04/16 at 12:30 Albuterol (Ventolin Hfa) 2 puff Q4H PRN INH WHEEZING AND RESP DISTRESS; Start 07/04/16 at 14:30 Ascorbic Acid (Vitamin C) 500 mg DAILY PO Last administered on 07/05/16 08:43 ; Admin Dose 500 MG; Start 07/05/16 at 09:00 Baclofen (Lioresal) 20 mg TID PO Last administered on 07/05/16 12:13; Admin Dose 20 MG; Start 07/04/16 at 21:00 Diphenhydramine HCl (Benadryl) 25 mg QHS PRN PO SLEEP Last administered on 07/04 20:24; Admin Dose 25 MG; Start 07/04/16 at 14:30 Fenofibrate (Tricor) 145 mg DAILY PO Last administered on 07/05/16 08:43; Admin Dose 145 MG; Start 07/05/16 at 09:00 Fluticasone Propionate (Flonase 0.05% Nasal) 1 spray BID NASAL Last administered on 07/05/16 12:12; Admin Dose 1 SPRAY; Start 07/04/16 at 21:00 Gabapentin (Neurontin) 300 mg TID PO Last administered on 07/05/16 12:12; Admin Dose 300 MG; Start 07/04/16 at 21:00 Lorazepam (Ativan) 0.5 mg Q8 PRN PO ANXIETY; Start 07/04/16 at 14:30 Metformin HCl (Glucophage) 500 mg BID PO Last administered on 07/05/16 08:43; Admin Dose 500 MG; Start 07/04/16 at 21:00 Multivitamins Therapeutic (Theragran) 1 tab DAILY PO Last administered on 08:43; Admin Dose 1 TAB; Start 07/05/16 at 09:00 Miscellaneous Information 1 ea NOTE XX ; Start 07/04/16 at 15:30 Glucose (Glutose) 15 gm Q15M PRN PO DECREASED GLUCOSE; Start 07/04/16 at 15:30 Glucose (Glutose) 22.5 gm Q15M PRN PO DECREASED GLUCOSE; Start 07/04/16 at 15: 30 Dextrose (D50w Syringe) 25 ml Q15M PRN IV DECREASED GLUCOSE; Start 07/04/16 at 15:30 Dextrose (D50w Syringe) 50 ml Q15M PRN IV DECREASED GLUCOSE; Start 07/04/16 at 15:30 Glucagon (Glucagen) 1 mg Q15M PRN IM DECREASED GLUCOSE; Start 07/04/16 at 15:30 Glucose 15 gm 15 gm Q15M PRN BUCCAL DECREASED GLUCOSE; Start 07/04/16 at 15:30 Amikacin Sulfate/ Sodium Chloride (Amikacin/NS) 104 ml @ 102 mls/hr Q24H IVPB Last administered on 07/04/16 18:30; Admin Dose 102 MLS/HR; Start 07/04/16 at 19:00 Enoxaparin Sodium (Lovenox) 40 mg DAILY SC Last administered on 07/05/16 08:55 ; Admin Dose 40 MG; Start 07/05/16 at 09:00 Famotidine 20 mg 20 mg BID PO Last administered on 07/05/16 08:43; Admin Dose 20 MG; Start 07/04/16 at 21:00 Sodium Chloride (NS) 1,000 ml @ 100 mls/hr Q10H IV Last administered on 06:16; Admin Dose 100 MLS/HR; Start 07/04/16 at 19:30; Stop 07/05/16 at 15: 29 Ondansetron HCl (Zofran Inj) 4 mg Q4H PRN IV NAUSEA AND/OR VOMITING; Start at 19:30 Docusate Sodium (Colace) 100 mg BID PRN PO CONSTIPATION; Start 07/04/16 at 19: 30 Acetaminophen (Tylenol Tab) 650 mg Q6H PRN PO PAIN AND OR ELEVATED TEMP; Start 07/04/16 at 19:30 CARMELINA SEARS MD Jul 05, 2016 13:47
--- NOTE | 2016-07-05 16:46 | PN ---
DATE: 07/05/2016 SUBJECTIVE: The patient does have a suprapubic tube that needs to be changed, and he has had this f or many years. HISTORY OF PRESENT ILLNESS: The patient has had recurrent urinary tract infections and the has been changing it for him at home, but he has been having problem with the urine having bad smell. Therefore, the patient needs to be changed and do culture from the new catheter. OBJECTIVE VITAL SIGNS: His temperature is 98.3, pulse 75, respiration 18, blood pressure 139/78. ABDOMEN: Obese. The old suprapubic tube is in place and patient does have a colostomy. I had the nurse then deflate the balloon of the old suprapubic catheter. Then, I prepped and draped the area of the suprapubic tube. Then, I had the nurse take the old suprapubic tube out and through the supr apubic tract, I inserted a new 22 Czech catheter. The balloon is 430 mL, but I only inflated it wi th 15 mL. The catheter was connected to a drainage bag, and urine culture will be sent from this c atheter. CBC on the patient shows a white count of 5.0. Hemoglobin 12.4, hematocrit 37.8. BUN is 6, creati nine 0.43. Electrolytes are normal. The urine culture that was done yesterday showing 100,000 colo nies per mL of gram-negative rods. PLAN: To keep the new suprapubic tube in place and then send urine for culture and continue his pre sent medications. Dictated By: SISI BRIONES/SANYA Conf#: [id number] DID#: [id number]
[2016-07-05] MEDS: COLLAGENASE 30 GM TUBE TOP SCH (18:39)
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
[2016-07-05 19:54] VITALS: BP 147/82; RESP 18
[2016-07-06] MEDS ORDERED: AMIKACIN 1,000 MG in SOD CHLORIDE 0.9% 100 ML IVPB SCH (06:00)
[2016-07-06] MEDS: INSULIN ASPART [NOVOLOG] 3 ML PEN SC SCH ×4 (08:15→21:00)
[2016-07-06] MEDS: FENOFIBRATE 145 MG TAB PO SCH (08:36)
[2016-07-06] MEDS: FAMOTIDINE 20 MG TAB PO SCH ×2 (08:36→21:08)
[2016-07-06] MEDS: MULTIVITAMINS THERAPEUTIC TAB PO SCH (08:36)
[2016-07-06] MEDS: FLUTICASONE 0.05% 16 GM NAS SPRAY NASAL SCH ×2 (08:36→21:08)
[2016-07-06] MEDS: BACLOFEN 10 MG TAB PO SCH ×3 (08:36→21:07)
[2016-07-06] MEDS: ASCORBIC ACID 500 MG TAB PO SCH (08:36)
[2016-07-06] MEDS: GABAPENTIN 300 MG CAP PO SCH ×3 (08:36→21:08)
[2016-07-06] MEDS: metFORMIN 500 MG TAB PO SCH ×2 (08:36→21:07)
[2016-07-06] MEDS: COLLAGENASE 30 GM TUBE TOP SCH (08:37)
[2016-07-06 08:38] LABS: ADD SCAN DIFF NO
[2016-07-06 08:41] LABS: BASOPHILS % 0.6 % (0.0-2.0); EOSINOPHILS # 0.2 10^3/ul (0.0-0.5); LYMPHOCYTES # 1.2 10^3/ul (0.8-2.9); LYMPHOCYTES % 23.8 % (15.0-51.0); MEAN CORPUSCULAR HEMOGLOBIN 31.4 pg (29.0-33.0); MEAN CORPUSCULAR HGB CONC 33.3 g/dl (32.0-37.0); MEAN CORPUSCULAR VOLUME 94.2 fl (82.0-101.0); MEAN PLATELET VOLUME 10.1 fl (7.4-10.4); MONOCYTE # 0.3 10^3/ul (0.3-0.9); MONOCYTES % 6.7 % (0.0-11.0); NEUTROPHIL # 3.3 10^3/ul (1.6-7.5); NEUTROPHILS % 64.3 % (39.0-77.0); PLATELET COUNT 212 10^3/UL (140-415); RED BLOOD COUNT 3.82 10^6/ul (4.70-6.10); RED CELL DISTRIBUTION WIDTH 13.3 % (11.5-14.5); WHITE BLOOD COUNT 5.1 10^3/ul (4.8-10.8)
[2016-07-06] MEDS: ENOXAPARIN 40 MG/0.4 ML SYG SC SCH (08:54)
[2016-07-06 09:18] LABS: POTASSIUM 3.8 mmol/L (3.5-5.1)
[2016-07-06 09:21] LABS: CREATININE 0.42 mg/dl (0.61-1.24)
[2016-07-06 09:22] LABS: CALCIUM 9.1 mg/dl (8.4-10.2)
--- NOTE | 2016-07-06 16:47 | PN ---
Date/Time of Note Date/Time of Note DATE: 07/06/16 TIME: 16:44 Assessment/Plan VTE Prophylaxis VTE Prophylaxis Intervention: LMWH Lines/Catheters IV Catheter Type (from Nrsg): Saline Lock Urinary Cath still in place: Yes (SUPRAPUBIC CATHETER) Reason Cath still needed: urinary retention (chronic rodríguez due to urinary retention due to neurogenic bladder ) Assessment/Plan Assessment/Plan 1. Acute recurrent complicated GNR UTI due to indwelling suprapubic catheter.- no evidence of urosepsis, Urine Cx grew gram negative rods 2. Non obstructing Nephrolithiasis 3. DMT2 4. S/p diverting colostomy for Pressure ulcer (small per patient) 5. Hx of C.Diff colitis 6. Occasional Substance (cocaine ) / tobacco use 7. Hepatitis C: chronic 8. Aortoilliac atherosclerosis per CT Plan: continue IV abx - ID following IV abx, IVF, Bp stable pain control Lovenox for DVT prophylaxis Subjective 24 Hr Interval Summary Free Text/Dictation no acute events, Bp stable Exam/Review of Systems Vital Signs Vitals Vital Signs Date Time Temp Pulse Resp B/P Pulse Ox O2 Delivery O2 Flow Rate FiO2 07/05/16 19:54 97.7 68 18 147/82 98 07/04/16 16:22 Room Air Intake and Output 07/05/16 07/05/16 07/06/16 15:00 23:00 07:00 Intake Total 2900 ml 800 ml Output Total 3300 ml 1400 ml Balance -400 ml -600 ml Exam Constitutional: alert, oriented, Respiratory: clear to auscultation, diminished breath sounds, Cardiovascular: regular rate and rhythm Gastrointestinal: bowel sounds, non-tender, other (colostomy , suprapubic cath , no cellulitis), soft Musculoskeletal: other (msc wasting in all 4 extremities. He's able to still somewhat use both upper extremities) Neurological: focal weakness (chronic paraplegic ) Results Result Diagram: 07/06/1682707/06/16827 Results 24 hrs Laboratory Tests Test 07/05/16 17:15 07/05/16 21:32 07/06/16 08:14 07/06/16 08:28 Bedside Glucose 97 129 102 White Blood Count 5.1 Red Blood Count 3.82 L Hemoglobin 12.0 L Hematocrit 36.0 L Mean Corpuscular Volume 94.2 Mean Corpuscular Hemoglobin 31.4 Mean Corpuscular Hemoglobin Concent 33.3 Red Cell Distribution Width 13.3 Platelet Count 212 Mean Platelet Volume 10.1 Neutrophils % 64.3 Lymphocytes % 23.8 Monocytes % 6.7 Eosinophils % 4.0 Basophils % 0.6 Nucleated Red Blood Cells % 0.0 Neutrophils # 3.3 Lymphocytes # 1.2 Monocytes # 0.3 Eosinophils # 0.2 Basophils # 0.0 Nucleated Red Blood Cells # 0.0 Sodium Level 135 Potassium Level 3.8 Chloride Level 101 Carbon Dioxide Level 24 Anion Gap 14 Blood Urea Nitrogen 9 Creatinine 0.42 L Glucose Level 111 Calcium Level 9.1 Test 07/06/16 10:34 07/06/16 11:54 Lab Scanned Report REFERENCE LAB Bedside Glucose 134 Medications Medications Current Medications Amikacin Sulfate (Amikacin Iv Per Pharmacy) AMIKACIN PER PHARMACY NOTE XX ; Start 07/04/16 at 12:30 Albuterol (Ventolin Hfa) 2 puff Q4H PRN INH WHEEZING AND RESP DISTRESS; Start 07/04/16 at 14:30 Ascorbic Acid (Vitamin C) 500 mg DAILY PO Last administered on 07/06/16 08:36 ; Admin Dose 500 MG; Start 07/05/16 at 09:00 Baclofen (Lioresal) 20 mg TID PO Last administered on 07/06/16 12:29; Admin Dose 20 MG; Start 07/04/16 at 21:00 Diphenhydramine HCl (Benadryl) 25 mg QHS PRN PO SLEEP Last administered on 07/04 20:24; Admin Dose 25 MG; Start 07/04/16 at 14:30 Fenofibrate (Tricor) 145 mg DAILY PO Last administered on 07/06/16 08:36; Admin Dose 145 MG; Start 07/05/16 at 09:00 Fluticasone Propionate (Flonase 0.05% Nasal) 1 spray BID NASAL Last administered on 07/06/16 08:36; Admin Dose 1 SPRAY; Start 07/04/16 at 21:00 Gabapentin (Neurontin) 300 mg TID PO Last administered on 07/06/16 12:28; Admin Dose 300 MG; Start 07/04/16 at 21:00 Lorazepam (Ativan) 0.5 mg Q8 PRN PO ANXIETY Last administered on 07/05/16 21: 28; Admin Dose 0.5 MG; Start 07/04/16 at 14:30 Metformin HCl (Glucophage) 500 mg BID PO Last administered on 07/06/16 08:36; Admin Dose 500 MG; Start 07/04/16 at 21:00 Multivitamins Therapeutic (Theragran) 1 tab DAILY PO Last administered on 08:36; Admin Dose 1 TAB; Start 07/05/16 at 09:00 Miscellaneous Information 1 ea NOTE XX ; Start 07/04/16 at 15:30 Glucose (Glutose) 15 gm Q15M PRN PO DECREASED GLUCOSE; Start 07/04/16 at 15:30 Glucose (Glutose) 22.5 gm Q15M PRN PO DECREASED GLUCOSE; Start 07/04/16 at 15: 30 Dextrose (D50w Syringe) 25 ml Q15M PRN IV DECREASED GLUCOSE; Start 07/04/16 at 15:30 Dextrose (D50w Syringe) 50 ml Q15M PRN IV DECREASED GLUCOSE; Start 07/04/16 at 15:30 Glucagon (Glucagen) 1 mg Q15M PRN IM DECREASED GLUCOSE; Start 07/04/16 at 15:30 Glucose (Glutose) 15 gm Q15M PRN BUCCAL DECREASED GLUCOSE; Start 07/04/16 at 15 :30 Enoxaparin Sodium (Lovenox) 40 mg DAILY SC Last administered on 07/06/16 08:54 ; Admin Dose 40 MG; Start 07/05/16 at 09:00 Famotidine (Pepcid) 20 mg BID PO Last administered on 07/06/16 08:36; Admin Dose 20 MG; Start 07/04/16 at 21:00 Ondansetron HCl (Zofran Inj) 4 mg Q4H PRN IV NAUSEA AND/OR VOMITING; Start at 19:30 Docusate Sodium (Colace) 100 mg BID PRN PO CONSTIPATION; Start 07/04/16 at 19: 30 Acetaminophen 650 mg 650 mg Q6H PRN PO PAIN AND OR ELEVATED TEMP; Start at 19:30 Amikacin Sulfate/ Sodium Chloride (Amikacin/NS) 104 ml @ 102 mls/hr Q36H IVPB Last administered on 07/06/16 06:15; Admin Dose 102 MLS/HR; Start 07/06/16 at 06:00 Collagenase (Santyl) 1 applic DAILY TOP Last administered on 07/06/16t 08:37; Admin Dose 1 APPLIC; Start 07/05/16 at 17:30 Miscellaneous Information (*Rx Drug Level Order Reminder*) AMIKACIN TROUGH AT 1700 ONCE ONCE XX ; Start 07/07/16 at 17:00; Stop 07/07/16 at 17:01 CARMELINA SEARS MD Jul 06, 2016 16:47
[2016-07-06 19:51] VITALS: BP 143/77; RESP 16
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
[2016-07-06] MEDS: DIPHENHYDRAMINE 25 MG CAP PO PRN (21:08)
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
[2016-07-07 07:50] LABS: ADD SCAN DIFF NO
[2016-07-07 07:52] VITALS: BP 108/66; RESP 16
[2016-07-07 08:01] LABS: BASOPHILS % 0.6 % (0.0-2.0); EOSINOPHILS # 0.2 10^3/ul (0.0-0.5); EOSINOPHILS % 4.7 % (0.0-7.0); HEMATOCRIT 38.1 % (42.0-52.0); HEMOGLOBIN 12.7 g/dl (14.0-18.0); LYMPHOCYTES # 1.3 10^3/ul (0.8-2.9); LYMPHOCYTES % 26.3 % (15.0-51.0); MEAN CORPUSCULAR HEMOGLOBIN 31.6 pg (29.0-33.0); MEAN CORPUSCULAR HGB CONC 33.3 g/dl (32.0-37.0); MEAN CORPUSCULAR VOLUME 94.8 fl (82.0-101.0); MEAN PLATELET VOLUME 10.7 fl (7.4-10.4); MONOCYTE # 0.4 10^3/ul (0.3-0.9); MONOCYTES % 7.3 % (0.0-11.0); NEUTROPHIL # 3.1 10^3/ul (1.6-7.5); NEUTROPHILS % 60.5 % (39.0-77.0); PLATELET COUNT 200 10^3/UL (140-415); RED BLOOD COUNT 4.02 10^6/ul (4.70-6.10); RED CELL DISTRIBUTION WIDTH 13.5 % (11.5-14.5); WHITE BLOOD COUNT 5.1 10^3/ul (4.8-10.8)
[2016-07-07] MEDS: INSULIN ASPART [NOVOLOG] 3 ML PEN SC SCH ×4 (08:06→20:14)
[2016-07-07 08:12] LABS: CALCIUM 9.4 mg/dl (8.4-10.2); CREATININE 0.46 mg/dl (0.61-1.24)
[2016-07-07] MEDS: FAMOTIDINE 20 MG TAB PO SCH ×2 (09:16→20:09)
[2016-07-07] MEDS: ASCORBIC ACID 500 MG TAB PO SCH (09:16)
[2016-07-07] MEDS: GABAPENTIN 300 MG CAP PO SCH ×3 (09:16→20:09)
[2016-07-07] MEDS: MULTIVITAMINS THERAPEUTIC TAB PO SCH (09:16)
[2016-07-07] MEDS: metFORMIN 500 MG TAB PO SCH ×2 (09:16→20:09)
[2016-07-07] MEDS: BACLOFEN 10 MG TAB PO SCH ×3 (09:16→20:09)
[2016-07-07] MEDS: FENOFIBRATE 145 MG TAB PO SCH (09:16)
[2016-07-07] MEDS: FLUTICASONE 0.05% 16 GM NAS SPRAY NASAL SCH ×2 (09:17→20:09)
[2016-07-07] MEDS: ENOXAPARIN 40 MG/0.4 ML SYG SC SCH (09:23)
--- NOTE | 2016-07-07 11:57 | PN ---
Date/Time of Note Date/Time of Note DATE: 07/07/16 TIME: 11:51 Assessment/Plan VTE Prophylaxis VTE Prophylaxis Intervention: LMWH Lines/Catheters IV Catheter Type (from Nrs): Saline Lock Urinary Cath still in place: Yes (SUPRAPUBIC CATHETER) Reason Cath still needed: urinary retention Assessment/Plan Chief Complaint/Hosp Course Assessment/Plan: 55 M with: 1. Acute recurrent complicated GNR UTI - due to indwelling suprapubic catheter. UCx = + MDR ecoli. No evidence of urosepsis. - continue abx, switch to gentamicin today per ID rec's - f/u and ID rec's 2. Non obstructing Nephrolithiasis - monitor, f/u rec's 3. DMT2 - monitor, ISS, metformin 4. S/p diverting colostomy for Pressure ulcer (small per patient) - monitor 5. Hx of C.Diff colitis - monitor 6. Occasional Substance (cocaine ) / tobacco use - monitor, cessation 7. Hepatitis C: chronic - monitor 8. Aortoilliac atherosclerosis per CT - monitor GI ppx - H2 romeo Lovenox for DVT prophylaxis Problems: Subjective 24 Hr Interval Summary Free Text/Dictation Pt denies dysuria. No acute events overnight. Exam/Review of Systems Vital Signs Vitals Vital Signs Date Time Temp Pulse Resp B/P Pulse Ox O2 Delivery O2 Flow Rate FiO2 07/07/16 07:52 97.8 60 16 108/66 98 07/04/16 16:22 Room Air Intake and Output 07/06/16 07/06/16 07/07/16 15:00 23:00 07:00 Intake Total 104 ml 2040 ml 240 ml Output Total 2400 ml 1400 ml Balance 104 ml -360 ml -1160 ml Exam Constitutional: alert, oriented, Respiratory: clear to auscultation, diminished breath sounds, Cardiovascular: regular rate and rhythm Gastrointestinal: bowel sounds, non-tender, other (colostomy, suprapubic cath, no cellulitis), soft Musculoskeletal: other (msc wasting in all 4 extremities. He's able to still somewhat use both upper extremities) Neurological: focal weakness (chronic paraplegic) Results Result Diagram: 07/07/16 0733 07/07/16 0733 Results 24 hrs Laboratory Tests Test 07/06/16 11:54 07/06/16 16:59 07/06/16 21:07 07/07/16 07:33 Bedside Glucose 134 119 124 White Blood Count 5.1 Red Blood Count 4.02 L Hemoglobin 12.7 L Hematocrit 38.1 L Mean Corpuscular Volume 94.8 Mean Corpuscular Hemoglobin 31.6 Mean Corpuscular Hemoglobin Concent 33.3 Red Cell Distribution Width 13.5 Platelet Count 200 Mean Platelet Volume 10.7 H Neutrophils % 60.5 Lymphocytes % 26.3 Monocytes % 7.3 Eosinophils % 4.7 Basophils % 0.6 Nucleated Red Blood Cells % 0.0 Neutrophils # 3.1 Lymphocytes # 1.3 Monocytes # 0.4 Eosinophils # 0.2 Basophils # 0.0 Nucleated Red Blood Cells # 0.0 Sodium Level 137 Potassium Level 4.0 Chloride Level 102 Carbon Dioxide Level 25 Anion Gap 14 Blood Urea Nitrogen 12 Creatinine 0.46 L Glucose Level 112 Calcium Level 9.4 Test 07/07/16 07:53 Bedside Glucose 107 Medications Medications Current Medications Amikacin Sulfate (Amikacin Iv Per Pharmacy) AMIKACIN PER PHARMACY NOTE XX ; Start 07/04/16 at 12:30 Albuterol (Ventolin Hfa) 2 puff Q4H PRN INH WHEEZING AND RESP DISTRESS; Start 07/04/16 at 14:30 Ascorbic Acid (Vitamin C) 500 mg DAILY PO Last administered on 07/07/16 09:16 ; Admin Dose 500 MG; Start 07/05/16 at 09:00 Baclofen (Lioresal) 20 mg TID PO Last administered on 07/07/16 09:16; Admin Dose 20 MG; Start 07/04/16 at 21:00 Diphenhydramine HCl (Benadryl) 25 mg QHS PRN PO SLEEP Last administered on 07/06 21:08; Admin Dose 25 MG; Start 07/04/16 at 14:30 Fenofibrate (Tricor) 145 mg DAILY PO Last administered on 07/07/16 09:16; Admin Dose 145 MG; Start 07/05/16 at 09:00 Fluticasone Propionate (Flonase 0.05% Nasal) 1 spray BID NASAL Last administered on 07/07/16 09:17; Admin Dose 1 SPRAY; Start 07/04/16 at 21:00 Gabapentin (Neurontin) 300 mg TID PO Last administered on 07/07/16 09:16; Admin Dose 300 MG; Start 07/04/16 at 21:00 Lorazepam (Ativan) 0.5 mg Q8 PRN PO ANXIETY Last administered on 07/05/16 21: 28; Admin Dose 0.5 MG; Start 07/04/16 at 14:30 Metformin HCl (Glucophage) 500 mg BID PO Last administered on 07/07/16 09:16; Admin Dose 500 MG; Start 07/04/16 at 21:00 Multivitamins Therapeutic (Theragran) 1 tab DAILY PO Last administered on 09:16; Admin Dose 1 TAB; Start 07/05/16 at 09:00 Miscellaneous Information 1 ea NOTE XX ; Start 07/04/16 at 15:30 Glucose (Glutose) 15 gm Q15M PRN PO DECREASED GLUCOSE; Start 07/04/16 at 15:30 Glucose (Glutose) 22.5 gm Q15M PRN PO DECREASED GLUCOSE; Start 07/04/16 at 15: 30 Dextrose (D50w Syringe) 25 ml Q15M PRN IV DECREASED GLUCOSE; Start 07/04/16 at 15:30 Dextrose (D50w Syringe) 50 ml Q15M PRN IV DECREASED GLUCOSE; Start 07/04/16 at 15:30 Glucagon (Glucagen) 1 mg Q15M PRN IM DECREASED GLUCOSE; Start 07/04/16 at 15:30 Glucose (Glutose) 15 gm Q15M PRN BUCCAL DECREASED GLUCOSE; Start 07/04/16 at 15 :30 Enoxaparin Sodium (Lovenox) 40 mg DAILY SC Last administered on 07/07/16 09:23 ; Admin Dose 40 MG; Start 07/05/16 at 09:00 Famotidine (Pepcid) 20 mg BID PO Last administered on 07/07/16 09:16; Admin Dose 20 MG; Start 07/04/16 at 21:00 Ondansetron HCl (Zofran Inj) 4 mg Q4H PRN IV NAUSEA AND/OR VOMITING; Start at 19:30 Docusate Sodium (Colace) 100 mg BID PRN PO CONSTIPATION; Start 07/04/16 at 19: 30 Acetaminophen (Tylenol Tab) 650 mg Q6H PRN PO PAIN AND OR ELEVATED TEMP; Start 07/04/16 at 19:30 Collagenase (Santyl) 1 applic DAILY TOP Last administered on 07/06/16t 08:37; Admin Dose 1 APPLIC; Start 07/05/16 at 17:30 Miscellaneous Information (*Rx Drug Level Order Reminder*) AMIKACIN TROUGH AT 1700 ONCE ONCE XX ; Start 07/07/16 at 17:00; Stop 07/07/16 at 17:01 Gentamicin Sulfate (Gentamicin Iv Per Pharmacy) GENTAMICIN PER PHARMACY NOTE XX ; Start 07/07/16 at 12:00; Status LOKI CHAMPAGNE Jul 07, 2016 11:57
[2016-07-07] MEDS ORDERED: GENTAMICIN IV PER PHARMACY XX SCH (12:00)
--- NOTE | 2016-07-07 13:16 | PN ---
DATE: 07/07/2016 INFECTIOUS DISEASE PROGRESS NOTE SUBJECTIVE: The patient is alert, feels good, looks comfortable, no fevers. LABORATORY DATA: WBC 5.1, no shift, no bands. BUN 12, creatinine 0.46. ANTIMICROBIALS: Gentamicin IV. INDWELLINGS: Suprapubic catheter. PHYSICAL EXAMINATION: GENERAL: Chronically ill-appearing, middle-aged man who is in no distress. HEENT: Head atraumatic, normocephalic. Sclerae anicteric. Buccal mucosa dry. NECK: Supple. CHEST: Rise symmetrical. Breath sounds clear. HEART: S1, S2. ABDOMEN: Soft, bowel sounds present. EXTREMITIES: Wasted, contractures. ASSESSMENT: 1. Polymicrobial urinary tract infection. 2. Diabetes. 3. History of Clostridium difficile colitis. 4. C5 paraplegia. 5. ALLERGY TO SULFA, CEFTRIAXONE, AND NITROFURANTOIN WELL BACTRIM. PLAN: The patient remains stable. We will continue him on current regimen. In regards to antibiot ics, continue management as per primary team and consultants. Dictated By: MALIKA FISHER [employer] ST[employer] [facility] for NATI MELENDREZ MD NI/NTS Conf#: [id number] DID#: [id number]
[2016-07-07] MEDS: COLLAGENASE 30 GM TUBE TOP SCH (13:21)
[2016-07-07] MEDS: GENTAMICIN 300 MG in SOD CHLORIDE 0.9% 100 ML IVPB SCH (17:46)
[2016-07-07 19:00] VITALS: BP 158/89; RESP 16
[2016-07-07] MEDS: DIPHENHYDRAMINE 25 MG CAP PO PRN (20:20)
[2016-07-08 05:28] LABS: ADD SCAN DIFF NO
[2016-07-08 05:47] LABS: BASOPHILS % 0.7 % (0.0-2.0); EOSINOPHILS # 0.2 10^3/ul (0.0-0.5); EOSINOPHILS % 3.9 % (0.0-7.0); HEMATOCRIT 36.1 % (42.0-52.0); HEMOGLOBIN 12.2 g/dl (14.0-18.0); LYMPHOCYTES # 1.4 10^3/ul (0.8-2.9); MEAN CORPUSCULAR HEMOGLOBIN 31.8 pg (29.0-33.0); MEAN CORPUSCULAR HGB CONC 33.8 g/dl (32.0-37.0); MEAN PLATELET VOLUME 10.2 fl (7.4-10.4); MONOCYTE # 0.5 10^3/ul (0.3-0.9); MONOCYTES % 8.1 % (0.0-11.0); NEUTROPHIL # 3.8 10^3/ul (1.6-7.5); NEUTROPHILS % 63.8 % (39.0-77.0); PLATELET COUNT 200 10^3/UL (140-415); RED BLOOD COUNT 3.84 10^6/ul (4.70-6.10); RED CELL DISTRIBUTION WIDTH 13.6 % (11.5-14.5); WHITE BLOOD COUNT 5.9 10^3/ul (4.8-10.8)
[2016-07-08 06:24] LABS: POTASSIUM 4.2 mmol/L (3.5-5.1)
[2016-07-08 06:26] LABS: CREATININE 0.48 mg/dl (0.61-1.24)
[2016-07-08 06:27] LABS: CALCIUM 9.1 mg/dl (8.4-10.2)
[2016-07-08] MEDS: INSULIN ASPART [NOVOLOG] 3 ML PEN SC SCH ×4 (07:50→20:31)
[2016-07-08 08:00] VITALS: BP 73/56; PULSE 70; RESP 20
[2016-07-08 08:30] VITALS: BP 100/65; PULSE 64
[2016-07-08 08:53] VITALS: BP 105/65; PULSE 65
[2016-07-08] MEDS: COLLAGENASE 30 GM TUBE TOP SCH ×2 (09:00→17:06)
[2016-07-08] MEDS: FAMOTIDINE 20 MG TAB PO SCH ×2 (09:02→20:28)
[2016-07-08] MEDS: ASCORBIC ACID 500 MG TAB PO SCH (09:02)
[2016-07-08] MEDS: MULTIVITAMINS THERAPEUTIC TAB PO SCH (09:02)
[2016-07-08] MEDS: metFORMIN 500 MG TAB PO SCH ×2 (09:03→20:28)
[2016-07-08] MEDS: BACLOFEN 10 MG TAB PO SCH ×3 (09:03→20:28)
[2016-07-08] MEDS: GABAPENTIN 300 MG CAP PO SCH ×3 (09:04→20:28)
[2016-07-08] MEDS: FENOFIBRATE 145 MG TAB PO SCH (09:04)
[2016-07-08] MEDS: FLUTICASONE 0.05% 16 GM NAS SPRAY NASAL SCH ×2 (09:05→20:28)
[2016-07-08] MEDS: ENOXAPARIN 40 MG/0.4 ML SYG SC SCH (09:14)
[2016-07-08] MEDS ORDERED: SOD CHLORIDE 0.9% 1,000 ML IV SCH (10:30)
--- NOTE | 2016-07-08 10:45 | PN ---
Date/Time of Note Date/Time of Note DATE: 07/08/16 TIME: 10:42 Assessment/Plan VTE Prophylaxis VTE Prophylaxis Intervention: LMWH Lines/Catheters IV Catheter Type (from Nrs): Saline Lock Urinary Cath still in place: Yes (SUPRAPUBIC CATHETER) Reason Cath still needed: urinary retention Assessment/Plan Chief Complaint/Hosp Course Assessment/Plan: 55 M with: 1. Acute recurrent complicated GNR UTI - due to indwelling suprapubic catheter. UCx = + MDR ecoli. No evidence of urosepsis. - continue abx gentamicin per ID rec's - discuss with them about length of tx. - f/u and ID rec's 2. Non obstructing Nephrolithiasis - monitor, f/u rec's 3. DMT2 - monitor, ISS, metformin 4. S/p diverting colostomy for Pressure ulcer (small per patient) - monitor 5. Hx of C.Diff colitis - monitor 6. Occasional Substance (cocaine ) / tobacco use - monitor, cessation 7. Hepatitis C: chronic - monitor 8. Aortoilliac atherosclerosis per CT - monitor GI ppx - H2 romeo Lovenox for DVT prophylaxis Problems: Subjective 24 Hr Interval Summary Free Text/Dictation Family agreed to change code status to DNR yesterday. Family still trying to feed pt (despite not being recommended to do this) - pt has fever this AM as well. Exam/Review of Systems Vital Signs Vitals Vital Signs Date Time Temp Pulse Resp B/P Pulse Ox O2 Delivery O2 Flow Rate FiO2 07/08/16 08:53 65 105/65 07/08/16 08:00 98.2 20 96 Room Air Intake and Output 07/07/16 07/07/16 07/08/16 15:00 23:00 07:00 Intake Total 1347.5 ml 480 ml Output Total 1500 ml 2350 ml Balance -152.5 ml -1870 ml Exam Constitutional: alert, oriented, Respiratory: clear to auscultation, diminished breath sounds, Cardiovascular: regular rate and rhythm Gastrointestinal: bowel sounds, non-tender, other (colostomy, suprapubic cath, no cellulitis), soft Musculoskeletal: other (msc wasting in all 4 extremities. He's able to still somewhat use both upper extremities) Neurological: focal weakness (chronic paraplegic) Results Result Diagram: 07/08/16 0505 07/08/16 0505 Results 24 hrs Laboratory Tests Test 07/07/16 12:26 07/07/16 17:13 07/07/16 20:14 07/08/16 05:05 Bedside Glucose 116 106 120 White Blood Count 5.9 Red Blood Count 3.84 L Hemoglobin 12.2 L Hematocrit 36.1 L Mean Corpuscular Volume 94.0 Mean Corpuscular Hemoglobin 31.8 Mean Corpuscular Hemoglobin Concent 33.8 Red Cell Distribution Width 13.6 Platelet Count 200 Mean Platelet Volume 10.2 Neutrophils % 63.8 Lymphocytes % 23.0 Monocytes % 8.1 Eosinophils % 3.9 Basophils % 0.7 Nucleated Red Blood Cells % 0.0 Neutrophils # 3.8 Lymphocytes # 1.4 Monocytes # 0.5 Eosinophils # 0.2 Basophils # 0.0 Nucleated Red Blood Cells # 0.0 Sodium Level 136 Potassium Level 4.2 Chloride Level 101 Carbon Dioxide Level 26 Anion Gap 13 Blood Urea Nitrogen 16 Creatinine 0.48 L Glucose Level 101 Calcium Level 9.1 Random Gentamicin Level 2.4 Test 07/08/16 07:49 Bedside Glucose 103 Medications Medications Current Medications Albuterol (Ventolin Hfa) 2 puff Q4H PRN INH WHEEZING AND RESP DISTRESS; Start 07/04/16 at 14:30 Ascorbic Acid (Vitamin C) 500 mg DAILY PO Last administered on 07/08/16 09:02 ; Admin Dose 500 MG; Start 07/05/16 at 09:00 Baclofen (Lioresal) 20 mg TID PO Last administered on 07/08/16 09:03; Admin Dose 20 MG; Start 07/04/16 at 21:00 Diphenhydramine HCl (Benadryl) 25 mg QHS PRN PO SLEEP Last administered on 07/07 20:20; Admin Dose 25 MG; Start 07/04/16 at 14:30 Fenofibrate (Tricor) 145 mg DAILY PO Last administered on 07/08/16 09:04; Admin Dose 145 MG; Start 07/05/16 at 09:00 Fluticasone Propionate (Flonase 0.05% Nasal) 1 spray BID NASAL Last administered on 07/08/16 09:05; Admin Dose 1 SPRAY; Start 07/04/16 at 21:00 Gabapentin (Neurontin) 300 mg TID PO Last administered on 07/08/16 09:04; Admin Dose 300 MG; Start 07/04/16 at 21:00 Lorazepam (Ativan) 0.5 mg Q8 PRN PO ANXIETY Last administered on 07/05/16 21: 28; Admin Dose 0.5 MG; Start 07/04/16 at 14:30 Metformin HCl (Glucophage) 500 mg BID PO Last administered on 07/08/16 09:03; Admin Dose 500 MG; Start 07/04/16 at 21:00 Multivitamins Therapeutic (Theragran) 1 tab DAILY PO Last administered on 09:02; Admin Dose 1 TAB; Start 07/05/16 at 09:00 Miscellaneous Information 1 ea NOTE XX ; Start 07/04/16 at 15:30 Glucose (Glutose) 15 gm Q15M PRN PO DECREASED GLUCOSE; Start 07/04/16 at 15:30 Glucose (Glutose) 22.5 gm Q15M PRN PO DECREASED GLUCOSE; Start 07/04/16 at 15: 30 Dextrose (D50w Syringe) 25 ml Q15M PRN IV DECREASED GLUCOSE; Start 07/04/16 at 15:30 Dextrose (D50w Syringe) 50 ml Q15M PRN IV DECREASED GLUCOSE; Start 07/04/16 at 15:30 Glucagon (Glucagen) 1 mg Q15M PRN IM DECREASED GLUCOSE; Start 07/04/16 at 15:30 Glucose (Glutose) 15 gm Q15M PRN BUCCAL DECREASED GLUCOSE; Start 07/04/16 at 15 :30 Enoxaparin Sodium (Lovenox) 40 mg DAILY SC Last administered on 07/08/16 09:14 ; Admin Dose 40 MG; Start 07/05/16 at 09:00 Famotidine (Pepcid) 20 mg BID PO Last administered on 07/08/16 09:02; Admin Dose 20 MG; Start 07/04/16 at 21:00 Ondansetron HCl (Zofran Inj) 4 mg Q4H PRN IV NAUSEA AND/OR VOMITING; Start at 19:30 Docusate Sodium (Colace) 100 mg BID PRN PO CONSTIPATION; Start 07/04/16 at 19: 30 Acetaminophen (Tylenol Tab) 650 mg Q6H PRN PO PAIN AND OR ELEVATED TEMP; Start 07/04/16 at 19:30 Collagenase (Santyl) 1 applic DAILY TOP Last administered on 07/07/16 13:21; Admin Dose 1 APPLIC; Start 07/05/16 at 17:30 Gentamicin Sulfate GENTAMICIN PER PHARMACY NOTE XX ; Start 07/07/16 at 12:00 Gentamicin Sulfate/Sodium Chloride (Gentamicin/NS) 107.5 ml @ 103.75 mls/ hr Q24H IVPB Last administered on 07/07/16 17:46; Admin Dose 103.75 MLS/HR; Start 07/07/16 at 17:00 LOKI FARLEY Jul 08, 2016 10:45
--- NOTE | 2016-07-08 13:19 | CONS ---
Date/Time of Note Date/Time of Note DATE: 07/08/16 TIME: 13:18 Assessment/Plan Assessment/Plan Chief Complaint/Hosp Course SUBJECTIVE: The patient is alert, feels good, looks comfortable, no fevers. ANTIMICROBIALS: Gentamicin IV. INDWELLINGS: Suprapubic catheter. PHYSICAL EXAMINATION: GENERAL: Chronically ill-appearing, middle-aged man who is in no distress. HEENT: Head atraumatic, normocephalic. Sclerae anicteric. Buccal mucosa dry. NECK: Supple. CHEST: Rise symmetrical. Breath sounds clear. HEART: S1, S2. ABDOMEN: Soft, bowel sounds present. EXTREMITIES: Wasted, contractures. ASSESSMENT: 1. MDR urinary tract infection. 2. Diabetes. 3. History of Clostridium difficile colitis. 4. C5 paraplegia. 5. ALLERGY TO SULFA, CEFTRIAXONE, AND NITROFURANTOIN WELL BACTRIM. PLAN: The patient remains stable. We will continue him on current regimen for couple more days. DW staff Problems: Consultation Date/Type/Reason Admit Date/Time Jul 04, 2016 at 12:11 Initial Consult Date 07/05/16 Type of Consultation: INFECTIOUS DISEASES Exam/Review of Systems Vital Signs Vitals Vital Signs Date Time Temp Pulse Resp B/P Pulse Ox O2 Delivery O2 Flow Rate FiO2 07/08/16 08:53 65 105/65 07/08/16 08:00 98.2 20 96 Room Air Intake and Output 07/07/16 07/07/16 07/08/16 15:00 23:00 07:00 Intake Total 1347.5 ml 480 ml Output Total 1500 ml 2350 ml Balance -152.5 ml -1870 ml Results Result Diagram: 07/08/16 0505 07/08/16 0505 Results 24 hrs Laboratory Tests Test 07/07/16 17:13 07/07/16 20:14 07/08/16 05:05 07/08/16 07:49 Bedside Glucose 106 120 103 White Blood Count 5.9 Red Blood Count 3.84 L Hemoglobin 12.2 L Hematocrit 36.1 L Mean Corpuscular Volume 94.0 Mean Corpuscular Hemoglobin 31.8 Mean Corpuscular Hemoglobin Concent 33.8 Red Cell Distribution Width 13.6 Platelet Count 200 Mean Platelet Volume 10.2 Neutrophils % 63.8 Lymphocytes % 23.0 Monocytes % 8.1 Eosinophils % 3.9 Basophils % 0.7 Nucleated Red Blood Cells % 0.0 Neutrophils # 3.8 Lymphocytes # 1.4 Monocytes # 0.5 Eosinophils # 0.2 Basophils # 0.0 Nucleated Red Blood Cells # 0.0 Sodium Level 136 Potassium Level 4.2 Chloride Level 101 Carbon Dioxide Level 26 Anion Gap 13 Blood Urea Nitrogen 16 Creatinine 0.48 L Glucose Level 101 Calcium Level 9.1 Random Gentamicin Level 2.4 Test 07/08/16 11:54 Bedside Glucose 104 Medications Medications Current Medications Albuterol (Ventolin Hfa) 2 puff Q4H PRN INH WHEEZING AND RESP DISTRESS; Start 07/04/16 at 14:30 Ascorbic Acid (Vitamin C) 500 mg DAILY PO Last administered on 07/08/16 09:02 ; Admin Dose 500 MG; Start 07/05/16 at 09:00 Baclofen (Lioresal) 20 mg TID PO Last administered on 07/08/16 13:17; Admin Dose 20 MG; Start 07/04/16 at 21:00 Diphenhydramine HCl (Benadryl) 25 mg QHS PRN PO SLEEP Last administered on 07/07 20:20; Admin Dose 25 MG; Start 07/04/16 at 14:30 Fenofibrate (Tricor) 145 mg DAILY PO Last administered on 07/08/16 09:04; Admin Dose 145 MG; Start 07/05/16 at 09:00 Fluticasone Propionate (Flonase 0.05% Nasal) 1 spray BID NASAL Last administered on 07/08/16 09:05; Admin Dose 1 SPRAY; Start 07/04/16 at 21:00 Gabapentin (Neurontin) 300 mg TID PO Last administered on 07/08/16 13:17; Admin Dose 300 MG; Start 07/04/16 at 21:00 Lorazepam (Ativan) 0.5 mg Q8 PRN PO ANXIETY Last administered on 07/05/16 21: 28; Admin Dose 0.5 MG; Start 07/04/16 at 14:30 Metformin HCl (Glucophage) 500 mg BID PO Last administered on 07/08/16 09:03; Admin Dose 500 MG; Start 07/04/16 at 21:00 Multivitamins Therapeutic (Theragran) 1 tab DAILY PO Last administered on 09:02; Admin Dose 1 TAB; Start 07/05/16 at 09:00 Miscellaneous Information 1 ea NOTE XX ; Start 07/04/16 at 15:30 Glucose (Glutose) 15 gm Q15M PRN PO DECREASED GLUCOSE; Start 07/04/16 at 15:30 Glucose (Glutose) 22.5 gm Q15M PRN PO DECREASED GLUCOSE; Start 07/04/16 at 15: 30 Dextrose (D50w Syringe) 25 ml Q15M PRN IV DECREASED GLUCOSE; Start 07/04/16 at 15:30 Dextrose (D50w Syringe) 50 ml Q15M PRN IV DECREASED GLUCOSE; Start 07/04/16 at 15:30 Glucagon (Glucagen) 1 mg Q15M PRN IM DECREASED GLUCOSE; Start 07/04/16 at 15:30 Glucose (Glutose) 15 gm Q15M PRN BUCCAL DECREASED GLUCOSE; Start 07/04/16 at 15 :30 Enoxaparin Sodium (Lovenox) 40 mg DAILY SC Last administered on 07/08/16 09:14 ; Admin Dose 40 MG; Start 07/05/16 at 09:00 Famotidine (Pepcid) 20 mg BID PO Last administered on 07/08/16 09:02; Admin Dose 20 MG; Start 07/04/16 at 21:00 Ondansetron HCl (Zofran Inj) 4 mg Q4H PRN IV NAUSEA AND/OR VOMITING; Start at 19:30 Docusate Sodium (Colace) 100 mg BID PRN PO CONSTIPATION; Start 07/04/16 at 19: 30 Acetaminophen (Tylenol Tab) 650 mg Q6H PRN PO PAIN AND OR ELEVATED TEMP; Start 07/04/16 at 19:30 Collagenase (Santyl) 1 applic DAILY TOP Last administered on 07/07/16 13:21; Admin Dose 1 APPLIC; Start 07/05/16 at 17:30 Gentamicin Sulfate GENTAMICIN PER PHARMACY NOTE XX ; Start 07/07/16 at 12:00 Gentamicin Sulfate/Sodium Chloride (Gentamicin/NS) 107.5 ml @ 103.75 mls/ hr Q24H IVPB Last administered on 07/07/16 17:46; Admin Dose 103.75 MLS/HR; Start 07/07/16 at 17:00 MALIKA FISHER NP Jul 08, 2016 13:19
[2016-07-08] MEDS: GENTAMICIN 300 MG in SOD CHLORIDE 0.9% 100 ML IVPB SCH (17:16)
[2016-07-08 19:00] VITALS: BP 133/87; RESP 16
[2016-07-08] MEDS: DIPHENHYDRAMINE 25 MG CAP PO PRN (20:27)
[2016-07-09 07:28] LABS: ADD SCAN DIFF NO
[2016-07-09 07:49] LABS: BASOPHILS % 0.6 % (0.0-2.0); EOSINOPHILS # 0.2 10^3/ul (0.0-0.5); EOSINOPHILS % 3.8 % (0.0-7.0); HEMATOCRIT 36.3 % (42.0-52.0); HEMOGLOBIN 12.2 g/dl (14.0-18.0); LYMPHOCYTES # 1.1 10^3/ul (0.8-2.9); LYMPHOCYTES % 21.6 % (15.0-51.0); MEAN CORPUSCULAR HEMOGLOBIN 31.9 pg (29.0-33.0); MEAN CORPUSCULAR HGB CONC 33.6 g/dl (32.0-37.0); MEAN CORPUSCULAR VOLUME 94.8 fl (82.0-101.0); MEAN PLATELET VOLUME 11.6 fl (7.4-10.4); MONOCYTE # 0.4 10^3/ul (0.3-0.9); MONOCYTES % 7.1 % (0.0-11.0); NEUTROPHIL # 3.5 10^3/ul (1.6-7.5); NEUTROPHILS % 66.5 % (39.0-77.0); PLATELET COUNT 164 10^3/UL (140-415); RED BLOOD COUNT 3.83 10^6/ul (4.70-6.10); RED CELL DISTRIBUTION WIDTH 13.7 % (11.5-14.5); WHITE BLOOD COUNT 5.2 10^3/ul (4.8-10.8)
[2016-07-09 07:56] LABS: POTASSIUM 3.8 mmol/L (3.5-5.1)
[2016-07-09 07:59] LABS: CREATININE 0.44 mg/dl (0.61-1.24)
[2016-07-09 08:00] VITALS: BP 69/45; RESP 18
[2016-07-09 08:00] LABS: CALCIUM 9.3 mg/dl (8.4-10.2)
[2016-07-09] MEDS: INSULIN ASPART [NOVOLOG] 3 ML PEN SC SCH ×4 (08:15→21:00)
[2016-07-09] MEDS: FAMOTIDINE 20 MG TAB PO SCH ×2 (09:28→21:01)
[2016-07-09] MEDS: MULTIVITAMINS THERAPEUTIC TAB PO SCH (09:28)
[2016-07-09] MEDS: FLUTICASONE 0.05% 16 GM NAS SPRAY NASAL SCH ×2 (09:28→21:01)
[2016-07-09] MEDS: metFORMIN 500 MG TAB PO SCH ×2 (09:28→21:07)
[2016-07-09] MEDS: COLLAGENASE 30 GM TUBE TOP SCH (09:28)
[2016-07-09] MEDS: BACLOFEN 10 MG TAB PO SCH ×3 (09:29→21:01)
[2016-07-09] MEDS: GABAPENTIN 300 MG CAP PO SCH ×3 (09:29→21:01)
[2016-07-09] MEDS: FENOFIBRATE 145 MG TAB PO SCH (09:29)
[2016-07-09] MEDS: ASCORBIC ACID 500 MG TAB PO SCH (09:29)
[2016-07-09] MEDS: ENOXAPARIN 40 MG/0.4 ML SYG SC SCH (09:39)
--- NOTE | 2016-07-09 10:56 | PN ---
Date/Time of Note Date/Time of Note DATE: 07/09/16 TIME: 10:55 Assessment/Plan VTE Prophylaxis VTE Prophylaxis Intervention: LMWH Lines/Catheters IV [facility] Saline Lock Urinary Cath still in place: No Assessment/Plan Chief Complaint/Hosp Course Assessment/Plan: 55 M with: 1. Acute recurrent complicated GNR UTI - due to indwelling suprapubic catheter. UCx = + MDR ecoli. No evidence of urosepsis. - continue abx gentamicin per ID rec's needs another 24 hrs of tx. - f/u and ID rec's 2. Non obstructing Nephrolithiasis - monitor, f/u rec's 3. DMT2 - monitor, ISS, metformin 4. S/p diverting colostomy for Pressure ulcer (small per patient) - monitor 5. Hx of C.Diff colitis - monitor 6. Occasional Substance (cocaine ) / tobacco use - monitor, cessation 7. Hepatitis C: chronic - monitor 8. Aortoilliac atherosclerosis per CT - monitor 9. Dispo: likely home in 24 hrs. GI ppx - H2 romeo Lovenox for DVT prophylaxis Problems: Subjective 24 Hr Interval Summary Free Text/Dictation No acute events overnight. Exam/Review of Systems Vital Signs Vitals Vital Signs Date Time Temp Pulse Resp B/P Pulse Ox O2 Delivery O2 Flow Rate FiO2 07/09/16 08:00 97.4 63 18 69/45 97 07/08/16 08:00 Room Air Intake and Output 07/08/16 07/08/16 07/09/16 15:00 23:00 07:00 Intake Total 1337.5 ml 240 ml Output Total 1800 ml 1700 ml Balance -462.5 ml -1460 ml Exam Constitutional: alert, oriented, Respiratory: clear to auscultation, diminished breath sounds, Cardiovascular: regular rate and rhythm Gastrointestinal: bowel sounds, non-tender, other (colostomy, suprapubic cath, no cellulitis), soft Musculoskeletal: other (msc wasting in all 4 extremities. He's able to still somewhat use both upper extremities) Neurological: focal weakness (chronic paraplegic) Results Result Diagram: 07/09/16 0645 07/09/16 0645 Results 24 hrs Laboratory Tests Test 07/08/16 11:54 07/08/16 20:30 07/09/16 06:45 07/09/16 07:54 Bedside Glucose 104 110 91 White Blood Count 5.2 Red Blood Count 3.83 L Hemoglobin 12.2 L Hematocrit 36.3 L Mean Corpuscular Volume 94.8 Mean Corpuscular Hemoglobin 31.9 Mean Corpuscular Hemoglobin Concent 33.6 Red Cell Distribution Width 13.7 Platelet Count 164 Mean Platelet Volume 11.6 H Neutrophils % 66.5 Lymphocytes % 21.6 Monocytes % 7.1 Eosinophils % 3.8 Basophils % 0.6 Nucleated Red Blood Cells % 0.0 Neutrophils # 3.5 Lymphocytes # 1.1 Monocytes # 0.4 Eosinophils # 0.2 Basophils # 0.0 Nucleated Red Blood Cells # 0.0 Sodium Level 133 L Potassium Level 3.8 Chloride Level 100 Carbon Dioxide Level 25 Anion Gap 12 Blood Urea Nitrogen 18 Creatinine 0.44 L Glucose Level 130 Calcium Level 9.3 Medications Medications Current Medications Albuterol (Ventolin Hfa) 2 puff Q4H PRN INH WHEEZING AND RESP DISTRESS; Start 07/04/16 at 14:30 Ascorbic Acid (Vitamin C) 500 mg DAILY PO Last administered on 07/09/16 09:29 ; Admin Dose 500 MG; Start 07/05/16 at 09:00 Baclofen (Lioresal) 20 mg TID PO Last administered on 07/09/16 09:29; Admin Dose 20 MG; Start 07/04/16 at 21:00 Diphenhydramine HCl (Benadryl) 25 mg QHS PRN PO SLEEP Last administered on 07/08 20:27; Admin Dose 25 MG; Start 07/04/16 at 14:30 Fenofibrate (Tricor) 145 mg DAILY PO Last administered on 07/09/16 09:29; Admin Dose 145 MG; Start 07/05/16 at 09:00 Fluticasone Propionate (Flonase 0.05% Nasal) 1 spray BID NASAL Last administered on 07/09/16 09:28; Admin Dose 1 SPRAY; Start 07/04/16 at 21:00 Gabapentin (Neurontin) 300 mg TID PO Last administered on 07/09/16 09:29; Admin Dose 300 MG; Start 07/04/16 at 21:00 Lorazepam (Ativan) 0.5 mg Q8 PRN PO ANXIETY Last administered on 07/05/16 21: 28; Admin Dose 0.5 MG; Start 07/04/16 at 14:30 Metformin HCl (Glucophage) 500 mg BID PO Last administered on 07/09/16 09:28; Admin Dose 500 MG; Start 07/04/16 at 21:00 Multivitamins Therapeutic (Theragran) 1 tab DAILY PO Last administered on 09:28; Admin Dose 1 TAB; Start 07/05/16 at 09:00 Miscellaneous Information 1 ea NOTE XX ; Start 07/04/16 at 15:30 Glucose (Glutose) 15 gm Q15M PRN PO DECREASED GLUCOSE; Start 07/04/16 at 15:30 Glucose (Glutose) 22.5 gm Q15M PRN PO DECREASED GLUCOSE; Start 07/04/16 at 15: 30 Dextrose (D50w Syringe) 25 ml Q15M PRN IV DECREASED GLUCOSE; Start 07/04/16 at 15:30 Dextrose (D50w Syringe) 50 ml Q15M PRN IV DECREASED GLUCOSE; Start 07/04/16 at 15:30 Glucagon (Glucagen) 1 mg Q15M PRN IM DECREASED GLUCOSE; Start 07/04/16 at 15:30 Glucose (Glutose) 15 gm Q15M PRN BUCCAL DECREASED GLUCOSE; Start 07/04/16 at 15 :30 Enoxaparin Sodium (Lovenox) 40 mg DAILY SC Last administered on 07/09/16 09:39 ; Admin Dose 40 MG; Start 07/05/16 at 09:00 Famotidine (Pepcid) 20 mg BID PO Last administered on 07/09/16 09:28; Admin Dose 20 MG; Start 07/04/16 at 21:00 Ondansetron HCl (Zofran Inj) 4 mg Q4H PRN IV NAUSEA AND/OR VOMITING; Start at 19:30 Docusate Sodium (Colace) 100 mg BID PRN PO CONSTIPATION; Start 07/04/16 at 19: 30 Acetaminophen (Tylenol Tab) 650 mg Q6H PRN PO PAIN AND OR ELEVATED TEMP; Start 07/04/16 at 19:30 Collagenase (Santyl) 1 applic DAILY TOP Last administered on 07/09/16 09:28; Admin Dose 1 APPLIC; Start 07/05/16 at 17:30 Gentamicin Sulfate GENTAMICIN PER PHARMACY NOTE XX ; Start 07/07/16 at 12:00 Gentamicin Sulfate/Sodium Chloride (Gentamicin/NS) 107.5 ml @ 103.75 mls/ hr Q24H IVPB Last administered on 07/08/16t 17:16; Admin Dose 103.75 MLS/HR; Start 07/07/16 at 17:00 Miscellaneous Information (*Rx Drug Level Order Reminder*) 1 ONCE ONCE XX ; Start 07/09/16 at 16:00; Stop 07/09/16 at 16:01 LOKI FARLEY Jul 09, 2016 10:56
--- NOTE | 2016-07-09 13:31 | CONS ---
Date/Time of Note Date/Time of Note DATE: 07/09/16 TIME: 13:29 Assessment/Plan Assessment/Plan Chief Complaint/Hosp Course SUBJECTIVE: The patient is alert, c/o diarrhea, looks comfortable, no fevers. ANTIMICROBIALS: Gentamicin IV. INDWELLINGS: Suprapubic catheter. PHYSICAL EXAMINATION: GENERAL: Chronically ill-appearing, middle-aged man who is in no distress. HEENT: Head atraumatic, normocephalic. Sclerae anicteric. Buccal mucosa dry. NECK: Supple. CHEST: Rise symmetrical. Breath sounds clear. HEART: S1, S2. ABDOMEN: Soft, bowel sounds present. EXTREMITIES: Wasted, contractures. ASSESSMENT: 1. MDR urinary tract infection. 2. Diabetes. 3. History of Clostridium difficile colitis. 4. C5 paraplegia. 5. ALLERGY TO SULFA, CEFTRIAXONE, AND NITROFURANTOIN WELL BACTRIM. PLAN: The patient remains stable. Completing 7 days abx, send stool for C dif. DW staff/pt Problems: Consultation Date/Type/Reason Admit Date/Time Jul 04, 2016 at 12:11 Initial Consult Date 07/05/16 Type of Consultation: INFECTIOUS DISEASES Exam/Review of Systems Vital Signs Vitals Vital Signs Date Time Temp Pulse Resp B/P Pulse Ox O2 Delivery O2 Flow Rate FiO2 07/09/16 08:00 97.4 63 18 69/45 97 07/08/16 08:00 Room Air Intake and Output 07/08/16 07/08/16 07/09/16 15:00 23:00 07:00 Intake Total 1337.5 ml 240 ml Output Total 1800 ml 1700 ml Balance -462.5 ml -1460 ml Results Result Diagram: 07/09/16 0645 07/09/16 0645 Results 24 hrs Laboratory Tests Test 07/08/16 20:30 07/09/16 06:45 07/09/16 07:54 07/09/16 11:45 Bedside Glucose 110 91 161 White Blood Count 5.2 Red Blood Count 3.83 L Hemoglobin 12.2 L Hematocrit 36.3 L Mean Corpuscular Volume 94.8 Mean Corpuscular Hemoglobin 31.9 Mean Corpuscular Hemoglobin Concent 33.6 Red Cell Distribution Width 13.7 Platelet Count 164 Mean Platelet Volume 11.6 H Neutrophils % 66.5 Lymphocytes % 21.6 Monocytes % 7.1 Eosinophils % 3.8 Basophils % 0.6 Nucleated Red Blood Cells % 0.0 Neutrophils # 3.5 Lymphocytes # 1.1 Monocytes # 0.4 Eosinophils # 0.2 Basophils # 0.0 Nucleated Red Blood Cells # 0.0 Sodium Level 133 L Potassium Level 3.8 Chloride Level 100 Carbon Dioxide Level 25 Anion Gap 12 Blood Urea Nitrogen 18 Creatinine 0.44 L Glucose Level 130 Calcium Level 9.3 Medications Medications Current Medications Albuterol (Ventolin Hfa) 2 puff Q4H PRN INH WHEEZING AND RESP DISTRESS; Start 07/04/16 at 14:30 Ascorbic Acid (Vitamin C) 500 mg DAILY PO Last administered on 07/09/16 09:29 ; Admin Dose 500 MG; Start 07/05/16 at 09:00 Baclofen (Lioresal) 20 mg TID PO Last administered on 07/09/16 13:17; Admin Dose 20 MG; Start 07/04/16 at 21:00 Diphenhydramine HCl (Benadryl) 25 mg QHS PRN PO SLEEP Last administered on 07/08 20:27; Admin Dose 25 MG; Start 07/04/16 at 14:30 Fenofibrate (Tricor) 145 mg DAILY PO Last administered on 07/09/16 09:29; Admin Dose 145 MG; Start 07/05/16 at 09:00 Fluticasone Propionate (Flonase 0.05% Nasal) 1 spray BID NASAL Last administered on 07/09/16 09:28; Admin Dose 1 SPRAY; Start 07/04/16 at 21:00 Gabapentin (Neurontin) 300 mg TID PO Last administered on 07/09/16 13:16; Admin Dose 300 MG; Start 07/04/16 at 21:00 Lorazepam (Ativan) 0.5 mg Q8 PRN PO ANXIETY Last administered on 07/05/16 21: 28; Admin Dose 0.5 MG; Start 07/04/16 at 14:30 Metformin HCl (Glucophage) 500 mg BID PO Last administered on 07/09/16 09:28; Admin Dose 500 MG; Start 07/04/16 at 21:00 Multivitamins Therapeutic (Theragran) 1 tab DAILY PO Last administered on 09:28; Admin Dose 1 TAB; Start 07/05/16 at 09:00 Miscellaneous Information 1 ea NOTE XX ; Start 07/04/16 at 15:30 Glucose (Glutose) 15 gm Q15M PRN PO DECREASED GLUCOSE; Start 07/04/16 at 15:30 Glucose (Glutose) 22.5 gm Q15M PRN PO DECREASED GLUCOSE; Start 07/04/16 at 15: 30 Dextrose (D50w Syringe) 25 ml Q15M PRN IV DECREASED GLUCOSE; Start 07/04/16 at 15:30 Dextrose (D50w Syringe) 50 ml Q15M PRN IV DECREASED GLUCOSE; Start 07/04/16 at 15:30 Glucagon (Glucagen) 1 mg Q15M PRN IM DECREASED GLUCOSE; Start 07/04/16 at 15:30 Glucose (Glutose) 15 gm Q15M PRN BUCCAL DECREASED GLUCOSE; Start 07/04/16 at 15 :30 Enoxaparin Sodium (Lovenox) 40 mg DAILY SC Last administered on 07/09/16 09:39 ; Admin Dose 40 MG; Start 07/05/16 at 09:00 Famotidine (Pepcid) 20 mg BID PO Last administered on 07/09/16 09:28; Admin Dose 20 MG; Start 07/04/16 at 21:00 Ondansetron HCl (Zofran Inj) 4 mg Q4H PRN IV NAUSEA AND/OR VOMITING; Start at 19:30 Docusate Sodium (Colace) 100 mg BID PRN PO CONSTIPATION; Start 07/04/16 at 19: 30 Acetaminophen (Tylenol Tab) 650 mg Q6H PRN PO PAIN AND OR ELEVATED TEMP; Start 07/04/16 at 19:30 Collagenase (Santyl) 1 applic DAILY TOP Last administered on 07/09/16 09:28; Admin Dose 1 APPLIC; Start 07/05/16 at 17:30 Gentamicin Sulfate GENTAMICIN PER PHARMACY NOTE XX ; Start 07/07/16 at 12:00 Gentamicin Sulfate/Sodium Chloride (Gentamicin/NS) 107.5 ml @ 103.75 mls/ hr Q24H IVPB Last administered on 07/08/16 17:16; Admin Dose 103.75 MLS/HR; Start 07/07/16 at 17:00 Miscellaneous Information (*Rx Drug Level Order Reminder*) 1 ONCE ONCE XX ; Start 07/09/16 at 16:00; Stop 07/09/16 at 16:01 MALIKA FISHER NP Jul 09, 2016 13:30
[2016-07-09] MEDS: GENTAMICIN 300 MG in SOD CHLORIDE 0.9% 100 ML IVPB SCH (17:28)
[2016-07-09 19:35] VITALS: BP 132/85; RESP 18
[2016-07-09] MEDS: DIPHENHYDRAMINE 25 MG CAP PO PRN (21:02)
[2016-07-10 06:05] LABS: ADD SCAN DIFF NO
[2016-07-10 06:10] LABS: BASOPHILS % 0.6 % (0.0-2.0); EOSINOPHILS # 0.3 10^3/ul (0.0-0.5); EOSINOPHILS % 3.8 % (0.0-7.0); HEMATOCRIT 37.1 % (42.0-52.0); HEMOGLOBIN 12.3 g/dl (14.0-18.0); LYMPHOCYTES # 1.3 10^3/ul (0.8-2.9); MEAN CORPUSCULAR HEMOGLOBIN 31.3 pg (29.0-33.0); MEAN CORPUSCULAR HGB CONC 33.2 g/dl (32.0-37.0); MEAN CORPUSCULAR VOLUME 94.4 fl (82.0-101.0); MEAN PLATELET VOLUME 10.6 fl (7.4-10.4); MONOCYTE # 0.5 10^3/ul (0.3-0.9); MONOCYTES % 8.2 % (0.0-11.0); NEUTROPHIL # 4.4 10^3/ul (1.6-7.5); NEUTROPHILS % 66.9 % (39.0-77.0); PLATELET COUNT 203 10^3/UL (140-415); RED BLOOD COUNT 3.93 10^6/ul (4.70-6.10); RED CELL DISTRIBUTION WIDTH 13.8 % (11.5-14.5); WHITE BLOOD COUNT 6.6 10^3/ul (4.8-10.8)
[2016-07-10 06:46] LABS: CREATININE 0.5 mg/dl (0.61-1.24)
[2016-07-10 06:47] LABS: CALCIUM 9.5 mg/dl (8.4-10.2)
[2016-07-10 06:58] LABS: POTASSIUM 4.6 mmol/L (3.5-5.1)
[2016-07-10 07:31] VITALS: BP 102/68; RESP 20
[2016-07-10] MEDS: INSULIN ASPART [NOVOLOG] 3 ML PEN SC SCH ×2 (07:50→12:15)
[2016-07-10] MEDS: GABAPENTIN 300 MG CAP PO SCH ×2 (08:35→12:36)
[2016-07-10] MEDS: FLUTICASONE 0.05% 16 GM NAS SPRAY NASAL SCH ×2 (08:35→12:35)
[2016-07-10] MEDS: BACLOFEN 10 MG TAB PO SCH ×2 (08:35→12:36)
[2016-07-10] MEDS: ASCORBIC ACID 500 MG TAB PO SCH (08:35)
[2016-07-10] MEDS: MULTIVITAMINS THERAPEUTIC TAB PO SCH (08:36)
[2016-07-10] MEDS: FENOFIBRATE 145 MG TAB PO SCH (08:36)
[2016-07-10] MEDS: metFORMIN 500 MG TAB PO SCH (08:37)
[2016-07-10] MEDS: FAMOTIDINE 20 MG TAB PO SCH (08:37)
[2016-07-10] MEDS: ENOXAPARIN 40 MG/0.4 ML SYG SC SCH (08:40)
--- NOTE | 2016-07-10 10:55 | PDOCDIS ---
Discharge Instructions CONDITION Patient Condition: Stable HOME CARE INSTRUCTIONS: Special Diet: 1800 CCD ACTIVITY: Activity Restrictions: Slowly Increase Activity FOLLOW UP/APPOINTMENTS Appointments Please take your medications, and see your doctor in the clinic in 1 week. LOIK FARLEY Jul 10, 2016 10:55
--- NOTE | 2016-07-10 11:22 | DS ---
DATE OF ADMISSION: 07/04/2016 DATE OF DISCHARGE: 07/10/2016 This is a 55-year-old male originally admitted on 07/04/2016, being discharged home on 07/10/2016. HOSPITAL COURSE: The patient initially came in with dysuria and foul smelling urine. He was admitt ed for sepsis secondary to urinary tract infection. He was seen by urology team and infectious dise ase team. His urine culture came back positive for multidrug-resistant E. coli. He was placed on a ppropriate antibiotics for that. Over the course of his hospital stay, his white count was normal. He was afebrile. He also had a change performed to his suprapubic catheter that was changed out. He does have a history of a neurogenic bladder and he had a suprapubic catheter in place at home and that is secondary to chronic paraplegia from an old C5 injury. ____ he tolerated well. His vital signs were stable. He was back at his baseline status, and he will be discharged home today in impr caroline condition. He did complete 7 days of antibiotic treatment as well. DISCHARGE MEDICATIONS: 1. He will be sent with Ventolin HFA 2 puffs inhaled q.4 p.r.n. 2. Ascorbic acid 500 mg daily. 3. Baclofen 20 mg t.i.d. 4. Benadryl 25 mg at bedtime p.r.n. 5. Fenofibrate ____ mg daily. 6. Flonase spray b.i.d. 7. Gabapentin 300 mg t.i.d. 8. Ativan 0.5 mg p.o. q.8h. p.r.n. 9. Metformin 500 mg b.i.d. 10. Multivitamin 1 tab daily. He will need to follow up with primary care doctor in the clinic in the next 1 to 2 weeks. FINAL DIAGNOSES: 1. Acute recurrent complicated urinary tract infection status post changing of his suprapubic nakul ter and treatment for Escherichia coli multidrug resistant urinary tract infection. 2. Prior history of multiple urinary tract infections. 3. Nonobstructing nephrolithiasis. 4. Type 2 diabetes. 5. History of pressure ulcer in the past, status post diverting colostomy in the past. 6. Prior history of Clostridium difficile colitis. 7. History of substance abuse, monitored and given cessation for cocaine and tobacco use in the pas t. 8. Chronic hepatitis C. 9. Aortoiliac stenosis, atherosclerosis, stable. 10. History of chronic neurogenic bladder, status post suprapubic catheter, again changed this admi ssion. 11. Chronic paraplegia from old C5 injury. 12. High cholesterol. Time spent discharging patient 45 minutes. Dictated By: LOKI OLMEDO Conf#: [id number] DID#: [id number]
--- NOTE | 2016-07-10 15:37 | CONS ---
Date/Time of Note Date/Time of Note DATE: 07/10/16 TIME: 15:36 Assessment/Plan Assessment/Plan Chief Complaint/Hosp Course SUBJECTIVE: The patient is alert, looks comfortable, wants to go home, no fevers. ANTIMICROBIALS: Gentamicin IV. INDWELLINGS: Suprapubic catheter. PHYSICAL EXAMINATION: GENERAL: Chronically ill-appearing, middle-aged man who is in no distress. HEENT: Head atraumatic, normocephalic. Sclerae anicteric. Buccal mucosa dry. NECK: Supple. CHEST: Rise symmetrical. Breath sounds clear. HEART: S1, S2. ABDOMEN: Soft, bowel sounds present. EXTREMITIES: Wasted, contractures. ASSESSMENT: 1. MDR urinary tract infection. 2. Diabetes. 3. History of Clostridium difficile colitis. 4. C5 paraplegia. 5. ALLERGY TO SULFA, CEFTRIAXONE, AND NITROFURANTOIN WELL BACTRIM. PLAN: The patient remains stable. Completing 7 days abx, pending dc [facility] staff/pt Problems: Consultation Date/Type/Reason Admit Date/Time Jul 04, 2016 at 12:11 Initial Consult Date 07/05/16 Type of Consultation: INFECTIOUS DISEASES Exam/Review of Systems Vital Signs Vitals Vital Signs Date Time Temp Pulse Resp B/P Pulse Ox O2 Delivery O2 Flow Rate FiO2 07/10/16 07:31 98.5 67 20 102/68 98 07/08/16 08:00 Room Air Intake and Output 07/09/16 07/09/16 07/10/16 15:00 23:00 07:00 Intake Total 1267.5 ml 800 ml Output Total 1400 ml 1600 ml Balance -132.5 ml -800 ml Results Result Diagram: 07/10/16 0535 07/10/16 0535 Results 24 hrs Laboratory Tests Test 07/09/16 16:47 07/09/16 16:50 07/09/16 21:06 07/10/16 05:35 Bedside Glucose 109 101 Gentamicin Level Trough 0.8 L White Blood Count 6.6 # Red Blood Count 3.93 L Hemoglobin 12.3 L Hematocrit 37.1 L Mean Corpuscular Volume 94.4 Mean Corpuscular Hemoglobin 31.3 Mean Corpuscular Hemoglobin Concent 33.2 Red Cell Distribution Width 13.8 Platelet Count 203 # Mean Platelet Volume 10.6 H Neutrophils % 66.9 Lymphocytes % 20.0 Monocytes % 8.2 Eosinophils % 3.8 Basophils % 0.6 Nucleated Red Blood Cells % 0.0 Neutrophils # 4.4 Lymphocytes # 1.3 Monocytes # 0.5 Eosinophils # 0.3 Basophils # 0.0 Nucleated Red Blood Cells # 0.0 Sodium Level 133 L Potassium Level 4.6 Chloride Level 97 Carbon Dioxide Level 26 Anion Gap 15 Blood Urea Nitrogen 14 Creatinine 0.50 L Glucose Level 108 Calcium Level 9.5 Test 07/10/16 07:48 07/10/16 12:07 Bedside Glucose 129 90 Medications Medications Current Medications Albuterol (Ventolin Hfa) 2 puff Q4H PRN INH WHEEZING AND RESP DISTRESS; Start 07/04/16 at 14:30 Ascorbic Acid (Vitamin C) 500 mg DAILY PO Last administered on 07/10/16 08:35 ; Admin Dose 500 MG; Start 07/05/16 at 09:00 Baclofen (Lioresal) 20 mg TID PO Last administered on 07/10/16 12:36; Admin Dose 20 MG; Start 07/04/16 at 21:00 Diphenhydramine HCl (Benadryl) 25 mg QHS PRN PO SLEEP Last administered on 07/09 21:02; Admin Dose 25 MG; Start 07/04/16 at 14:30 Fenofibrate (Tricor) 145 mg DAILY PO Last administered on 07/10/16 08:36; Admin Dose 145 MG; Start 07/05/16 at 09:00 Fluticasone Propionate (Flonase 0.05% Nasal) 1 spray BID NASAL Last administered on 07/10/16 12:35; Admin Dose 1 SPRAY; Start 07/04/16 at 21:00 Gabapentin (Neurontin) 300 mg TID PO Last administered on 07/10/16 12:36; Admin Dose 300 MG; Start 07/04/16 at 21:00 Lorazepam (Ativan) 0.5 mg Q8 PRN PO ANXIETY Last administered on 07/05/16 21: 28; Admin Dose 0.5 MG; Start 07/04/16 at 14:30 Metformin HCl (Glucophage) 500 mg BID PO Last administered on 07/10/16 08:37; Admin Dose 500 MG; Start 07/04/16 at 21:00 Multivitamins Therapeutic (Theragran) 1 tab DAILY PO Last administered on 08:36; Admin Dose 1 TAB; Start 07/05/16 at 09:00 Miscellaneous Information 1 ea NOTE XX ; Start 07/04/16 at 15:30 Glucose (Glutose) 15 gm Q15M PRN PO DECREASED GLUCOSE; Start 07/04/16 at 15:30 Glucose (Glutose) 22.5 gm Q15M PRN PO DECREASED GLUCOSE; Start 07/04/16 at 15: 30 Dextrose (D50w Syringe) 25 ml Q15M PRN IV DECREASED GLUCOSE; Start 07/04/16 at 15:30 Dextrose (D50w Syringe) 50 ml Q15M PRN IV DECREASED GLUCOSE; Start 07/04/16 at 15:30 Glucagon (Glucagen) 1 mg Q15M PRN IM DECREASED GLUCOSE; Start 07/04/16 at 15:30 Glucose (Glutose) 15 gm Q15M PRN BUCCAL DECREASED GLUCOSE; Start 07/04/16 at 15 :30 Enoxaparin Sodium (Lovenox) 40 mg DAILY SC Last administered on 07/10/16 08:40 ; Admin Dose 40 MG; Start 07/05/16 at 09:00 Famotidine (Pepcid) 20 mg BID PO Last administered on 07/10/16 08:37; Admin Dose 20 MG; Start 07/04/16 at 21:00 Ondansetron HCl (Zofran Inj) 4 mg Q4H PRN IV NAUSEA AND/OR VOMITING; Start at 19:30 Docusate Sodium (Colace) 100 mg BID PRN PO CONSTIPATION; Start 07/04/16 at 19: 30 Acetaminophen (Tylenol Tab) 650 mg Q6H PRN PO PAIN AND OR ELEVATED TEMP; Start 07/04/16 at 19:30 Collagenase (Santyl) 1 applic DAILY TOP Last administered on 07/09/16 09:28; Admin Dose 1 APPLIC; Start 07/05/16 at 17:30 Gentamicin Sulfate GENTAMICIN PER PHARMACY NOTE XX ; Start 07/07/16 at 12:00 Gentamicin Sulfate/Sodium Chloride (Gentamicin/NS) 107.5 ml @ 103.75 mls/ hr Q24H IVPB Last administered on 07/09/16 17:28; Admin Dose 103.75 MLS/HR; Start 07/07/16 at 17:00 MALIKA FISHER NP Jul 10, 2016 15:37
[2016-07-10] MEDS: COLLAGENASE 30 GM TUBE TOP SCH (15:42)
== END 2016-07-10 16:10 | disposition home health service (06) | DRG 698 ==
LOC: FTE 07:50 → MS2 12:11
PROVIDERS: ADMIT Family Medicine; ATTEND Family Medicine
PROC: 0T2BX0Z Change Drainage Device in Bladder, External Approach (ICD-10-PCS; principal; 2016-07-05)
DX: T83.518A Infection and inflammatory reaction due to other urinary catheter, initial encounter (principal); A41.9 Sepsis, unspecified organism; L89.159 Pressure ulcer of sacral region, unspecified stage; G82.22 Paraplegia, incomplete; K74.60 Unspecified cirrhosis of liver; L89.219 Pressure ulcer of right hip, unspecified stage; S14.105S Unspecified injury at C5 level of cervical spinal cord, sequela; N30.00 Acute cystitis without hematuria; B18.2 Chronic viral hepatitis C; E78.00 Pure hypercholesterolemia, unspecified; F17.210 Nicotine dependence, cigarettes, uncomplicated; N31.9 Neuromuscular dysfunction of bladder, unspecified; F14.10 Cocaine abuse, uncomplicated; N20.0 Calculus of kidney; E78.1 Pure hyperglyceridemia; E11.9 Type 2 diabetes mellitus without complications; B96.20 Unspecified Escherichia coli [E. coli] as the cause of diseases classified elsewhere; Z16.24 Resistance to multiple antibiotics; I70.0 Atherosclerosis of aorta; Z93.3 Colostomy status; Z98.1 Arthrodesis status; Z79.84 Long term (current) use of oral hypoglycemic drugs; Z88.2 Allergy status to sulfonamides; Y84.6 Urinary catheterization as the cause of abnormal reaction of the patient, or of later complication, without mention of misadventure at the time of the procedure; W16.42XS Fall into unspecified water causing other injury, sequela
CPT/HCPCS: 71010; 74176; 80048; 80053; 80150; 80170; 81001; 81003; 82962; 83605; 83735; 84484; 85025; 85610; 85730; 87040; 87086; 93005; 96374; 96375; J0278; J1580; J1650; J1815; J2270; J2405; J7030

== ENCOUNTER 2017-01-06 09:24 | Emergency (ER) | payer OTHER ==
[~2017-01-06] VITALS: Ht 157.5 cm; Wt 78.0 kg
[~2017-01-06 09:24] MED LIST changes: -DIAZ10TA4 PO; -LEVO500T10 PO; +LORA0.5T PO; -METF-382 PO; -METF500T3 PO; +METF500T4 PO; -SAN30GM TOP; -[UNRECOGNIZED DRUG - CODE] IV*
[2017-01-06 09:28] VITALS: Ht 157.5 cm; Wt 78.0 kg
[2017-01-06] MEDS ORDERED: ACETAMINOPHEN 500 MG TAB PO STA (10:33)
[2017-01-06] MEDS ORDERED: GABA300C16 PO (10:47)
[2017-01-06] MEDS ORDERED: FENO145T25 PO (10:48)
[2017-01-06] MEDS ORDERED: ATOR40TA68 PO (10:48)
[2017-01-06] MEDS ORDERED: METF500T4 PO (10:49)
[2017-01-06] MEDS ORDERED: OMEP20CA16 PO (10:49)
[2017-01-06] MEDS ORDERED: FLUT9.9S NASAL (10:50)
[2017-01-06] MEDS ORDERED: LORA0.5T PO (10:50)
[2017-01-06] MEDS ORDERED: HYDR-3011 PO (10:50)
[2017-01-06] MEDS ORDERED: MECLIZINE 12.5 MG TAB PO ONE (11:00)
[2017-01-06 11:07] LABS: BASOPHILS % 0.5 % (0.0-2.0); EOSINOPHILS # 0.2 10^3/ul (0.0-0.5); EOSINOPHILS % 3.2 % (0.0-7.0); HEMATOCRIT 37.1 % (42.0-52.0); LYMPHOCYTES # 1.3 10^3/ul (0.8-2.9); MEAN CORPUSCULAR HEMOGLOBIN 30.2 pg (29.0-33.0); MEAN CORPUSCULAR HGB CONC 32.3 g/dl (32.0-37.0); MEAN CORPUSCULAR VOLUME 93.2 fl (82.0-101.0); MONOCYTE # 0.6 10^3/ul (0.3-0.9); MONOCYTES % 9.7 % (0.0-11.0); NEUTROPHIL # 3.9 10^3/ul (1.6-7.5); NEUTROPHILS % 65.3 % (39.0-77.0); PLATELET COUNT 212 10^3/UL (140-415); RED BLOOD COUNT 3.98 10^6/ul (4.70-6.10); RED CELL DISTRIBUTION WIDTH 13.5 % (11.5-14.5)
[2017-01-06 11:30] LABS: CALCIUM 9.4 mg/dl (8.4-10.2); CREATININE 0.51 mg/dl (0.61-1.24); POTASSIUM 3.5 mmol/L (3.5-5.1)
[2017-01-06 11:49] LABS: INR 0.95; PROTIME 12.7 Sec (12.2-14.2)
[2017-01-06 11:50] LABS: PARTIAL THROMBOPLASTIN TIME 32.6 Sec (25.0-35.0)
--- NOTE | 2017-01-06 13:31 | RADRPT ---
PROCEDURE: CT Brain without contrast. CLINICAL INDICATION: Headache. TECHNIQUE: A CT of the brain was performed on multidetector high-resolution CT scanner utilizing a xial sections from the skull base through the vertex without contrast. The scan was reviewed in sof t tissue brain and high frequency resolution bone algorithm windows. Images were reviewed on a high -resolution PACS workstation. One or more the following does reduction techniques were utilized: Aut omated exposure control, adjustment of the mA/ or kV according to patient's size, or use of iterativ e reconstruction technique. The exam CTDI = 44.77 mGy and the DLP = 720.23 mGy-cm. COMPARISON: None available. FINDINGS: The ventricles and sulci are age-appropriate. There is no intracranial hemorrhage, mass effect or mi dline shift. No abnormal intra-axial or extra-axial fluid collections are seen. The hernandez/white tl er differentiation is preserved. There are mild scattered foci of hypoattenuation in the white matter, which are nonspecific in etiol ogy but likely reflect chronic small vessel ischemic changes. The visualized paranasal sinuses are e ssentially clear. Bilateral mastoid air cells are underpneumatized. IMPRESSION: 1. No acute intracranial hemorrhage, transcortical infarction or mass effect. 2. Mild chronic small vessel ischemic changes. RPTAT: QQ .Viry العراقي MD, MD Date Time Electronically viewed and signed by .Viry العراقي MD, MD on 01/06/2017 13:31 .N/
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
[2017-01-06] MEDS ORDERED: MECL12.574 PO (14:08)
[2017-01-06 14:51] VITALS: BP 138/82; PULSE 89; RESP 18
== END 2017-01-06 14:52 | disposition home or self-care (01) ==
LOC: E/R 09:24 → MERGE 09:24 → E/R 14:52
DX: H81.393 Other peripheral vertigo, bilateral (principal); Z79.84 Long term (current) use of oral hypoglycemic drugs
CPT/HCPCS: 70450; 80048; 85025; 85610; 85730; Z7502; Z7610

== ENCOUNTER 2017-02-14 08:27 | Emergency (ER) | payer OTHER ==
[~2017-02-14] VITALS: Ht 170.2 cm; Wt 70.0 kg
[~2017-02-14 08:27] MED LIST changes: +ATOR40TA68 PO; +FENO145T25 PO; +FLUT9.9S NASAL; +HYDR-3011 PO; +MECL12.574 PO; +OMEP20CA16 PO
[2017-02-14 08:30] VITALS: Ht 170.2 cm; Wt 70.0 kg
[2017-02-14] MEDS ORDERED: SOD CHLORIDE 0.9% 1,000 ML IV STA ×2 (08:35→09:53)
[2017-02-14] MEDS ORDERED: DIPHENOXYLATE/ATROPINE TAB PO ONE (09:00)
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
[2017-02-14] MEDS ORDERED: CIPROFLOXACIN 400MG/D5W 200 ML IVPB ONE (10:00)
[2017-02-14] MEDS ORDERED: ALBU2.5V3 NEB (10:50)
[2017-02-14] MEDS ORDERED: TRAZ50TA18 PO (10:51)
[2017-02-14] MEDS ORDERED: CIPR500T4 PO (11:40)
[2017-02-14 11:49] VITALS: BP 179/61; PULSE 62; RESP 18
== END 2017-02-14 12:05 | disposition home or self-care (01) ==
LOC: E/R 08:27
DX: E86.0 Dehydration (principal); N39.0 Urinary tract infection, site not specified; I10 Essential (primary) hypertension; E11.9 Type 2 diabetes mellitus without complications; Z79.84 Long term (current) use of oral hypoglycemic drugs
CPT/HCPCS: 80053; 81001; 82150; 83690; 84484; 85025; 85610; 85730; 87086; 93005; 96374; J0744; J7030; Z7502; Z7610

== ENCOUNTER 2017-09-19 07:43 | Emergency (ER) | END 2017-09-19 09:14 | disposition home or self-care (01) ==

== ENCOUNTER 2017-12-17 00:03 | Emergency (ER) | END 2017-12-17 04:23 | disposition home or self-care (01) ==

== ENCOUNTER 2018-06-28 08:22 | Emergency (ER) | payer OTHER ==
[~2018-06-28] VITALS: Ht 167.6 cm; Wt 65.0 kg
[~2018-06-28 08:22] MED LIST changes: +ALBU2.5V3 NEB; +CIPR500T4 PO; -DIPH25CA6 PO; +DOXY100T20 PO; -FENO145T19 PO; -FENO145T25 PO; -FLUT9.9S NASAL; -GABA300C16 PO; -HYDR-3011 PO; +HYDR-843 PO; -LORA0.5T PO; -MECL12.574 PO; -METF500T4 PO; -MULTI PO; +NAPR-688 PO; -OMEP20CA16 PO; +ONDA4TAB14 PO
[2018-06-28 08:26] VITALS: Ht 167.6 cm; Wt 65.0 kg
[2018-06-28] MEDS ORDERED: ONDANSETRON 4 MG INJ IV STA (09:02)
[2018-06-28] MEDS ORDERED: HYDROmorphONE 1 MG/ML SYG IV STA (09:02)
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
[2018-06-28] MEDS ORDERED: SOD CHLORIDE 0.9% 100 ML ONE (10:56)
[2018-06-28] MEDS ORDERED: IOHEXOL 300MG/ML 150 ML BTL ONE (10:56)
[2018-06-28 12:26] VITALS: BP 102/71; PULSE 75; RESP 18
[2018-06-28] MEDS ORDERED: HYDR-4011 PO (12:27)
== END 2018-06-28 12:30 | disposition home or self-care (01) ==
LOC: E/R 08:22
DX: R10.84 Generalized abdominal pain (principal); K59.00 Constipation, unspecified; I10 Essential (primary) hypertension; E11.9 Type 2 diabetes mellitus without complications
CPT/HCPCS: 36415; 74177; 80053; 83690; 85025; 96374; 96375; J1170; J2405; Q9967; Z7502; Z7610

== ENCOUNTER 2018-07-03 09:37 | Emergency (ER) | payer OTHER ==
[~2018-07-03] VITALS: Wt 70.0 kg
[~2018-07-03 09:37] MED LIST changes: -CIPR500T4 PO; -DOXY100T20 PO; +HYDR-4011 PO; -ONDA4TAB14 PO
[2018-07-03] MEDS ORDERED: ALBUTEROL 0.083% (NEB) 2.5 MG/3 ML AMP HHN STA (10:27)
[2018-07-03] MEDS ORDERED: DEXAMETHASONE 4 MG TAB PO ONE (10:30)
[2018-07-03] MEDS ORDERED: AZIT250T PO (11:22)
[2018-07-03] MEDS ORDERED: D-ME473S2 PO (11:22)
[2018-07-03] MEDS ORDERED: ALBU18HF INHALATION (11:22)
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
[2018-07-03 11:37] VITALS: BP 110/68; PULSE 67; RESP 18
== END 2018-07-03 11:38 | disposition home or self-care (01) ==
LOC: FTE 09:37
DX: R05 Cough (principal); I10 Essential (primary) hypertension; E11.9 Type 2 diabetes mellitus without complications
CPT/HCPCS: 71045; 94664; Z7502; Z7610

== ENCOUNTER 2018-07-06 01:56 | Inpatient (IN) | payer OTHER ==
[~2018-07-06] VITALS: Ht 170.2 cm; Wt 77.0 kg
[~2018-07-06 01:56] MED LIST changes: +AZIT250T PO; +D-ME473S2 PO
[2018-07-06] MEDS ORDERED: AZTREONAM 1 GM/NS (PMX) 50 ML IVPB STA (02:07)
[2018-07-06] MEDS ORDERED: SODIUM CHLORIDE 0.9% 1L BAG IV* STA (02:07)
[2018-07-06] MEDS ORDERED: ACETAMINOPHEN 325 MG TAB PO STA (02:07)
[2018-07-06] MEDS ORDERED: VANCOMYCIN 1 GM (PMX) 250 ML IVPB ONE (02:30)
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
[2018-07-06] MEDS ORDERED: IPRATROPIUM (NEB) 0.5 MG/2.5 ML AMP NEB STA (04:58)
[2018-07-06] MEDS ORDERED: ALBUTEROL 0.083% (NEB) 2.5 MG/3 ML AMP NEB STA (04:58)
[2018-07-06] MEDS ORDERED: HYDROCODONE/APAP (5/325) TAB PO PRN (05:00)
[2018-07-06] MEDS ORDERED: NACL 0.9% 3 ML SYG IV SCH (05:00)
[2018-07-06] MEDS ORDERED: ONDANSETRON 4 MG INJ IV PRN (05:00)
[2018-07-06] MEDS ORDERED: NAPROXEN 500 MG TAB PO PRN (05:00)
[2018-07-06] MEDS: SOD CHLORIDE 0.9% 1,000 ML IV SCH ×3 (06:15→16:58)
[2018-07-06 08:00] VITALS: BP 143/85; PULSE 86; RESP 17; Ht 170.2 cm; Wt 77.0 kg
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
[2018-07-06] MEDS: BACLOFEN 10 MG TAB PO SCH ×3 (09:20→20:48)
[2018-07-06] MEDS: ASCORBIC ACID 500 MG TAB PO SCH (09:20)
[2018-07-06] MEDS: FLUTICASONE 0.05% 16 GM NAS SPRAY NASAL SCH ×2 (09:20→20:50)
[2018-07-06] MEDS: HEPARIN 5,000 UNIT/1 ML VIAL SC SCH ×2 (09:21→20:49)
[2018-07-06] MEDS: ALBUTEROL 0.083% (NEB) 2.5 MG/3 ML AMP NEB PRN ×2 (10:30→19:54)
[2018-07-06] MEDS ORDERED: PENDING SANTYL ORDER FOR WOUND CARE XX PRN (11:00)
[2018-07-06] MEDS: ALBUTEROL HFA 8 GM INHALER INH PRN (11:09)
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
[2018-07-06 14:00] VITALS: BP 132/83; PULSE 100; RESP 19
[2018-07-06] MEDS ORDERED: LEVOFLOXACIN 500MG/D5W (PMX) 100 ML IVPB SCH (14:00)
[2018-07-06] MEDS: ACETYLCYSTEINE 20% 4 ML VIAL NEB SCH ×2 (14:25→19:54)
[2018-07-06] MEDS ORDERED: ATORVASTATIN 40 MG TAB ONE (19:50)
[2018-07-06 20:00] VITALS: BP 132/79; PULSE 90; RESP 18
[2018-07-06] MEDS: ATORVASTATIN 40 MG TAB PO SCH (20:48)
[2018-07-06] MEDS ORDERED: ZOLPIDEM 5 MG TAB PO ONE (21:00)
[2018-07-06] MEDS ORDERED: COLLAGENASE 5 GM (UD JAR) TOP ONE (21:29)
[2018-07-07 02:00] VITALS: BP 120/73; PULSE 62; RESP 18
[2018-07-07] MEDS: ALBUTEROL 0.083% (NEB) 2.5 MG/3 ML AMP NEB PRN ×4 (02:01→13:33)
[2018-07-07] MEDS: ACETYLCYSTEINE 20% 4 ML VIAL NEB SCH ×4 (02:01→19:20)
[2018-07-07] MEDS: ACETAMINOPHEN 325 MG TAB PO PRN ×2 (03:28→21:37)
[2018-07-07] MEDS: SOD CHLORIDE 0.9% 1,000 ML IV SCH (04:33)
[2018-07-07 07:00] VITALS: PULSE 116; RESP 18
[2018-07-07] MEDS ORDERED: POTASSIUM CHLORIDE (SR) 20 MEQ TAB PO STA (07:08)
[2018-07-07] MEDS ORDERED: MAGNESIUM SULFATE 3 GM in DEXTROSE 5% 100 ML IVPB ONE (07:30)
[2018-07-07 09:14] VITALS: BP 140/87; PULSE 111; RESP 18
[2018-07-07] MEDS: FLUTICASONE 0.05% 16 GM NAS SPRAY NASAL SCH ×2 (09:14→21:31)
[2018-07-07] MEDS: BACLOFEN 10 MG TAB PO SCH ×3 (09:14→21:32)
[2018-07-07] MEDS: ASCORBIC ACID 500 MG TAB PO SCH (09:14)
[2018-07-07] MEDS: HEPARIN 5,000 UNIT/1 ML VIAL SC SCH ×2 (09:15→21:00)
[2018-07-07 10:00] VITALS: PULSE 102
[2018-07-07] MEDS: ALBUTEROL HFA 8 GM INHALER INH PRN (13:15)
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
[2018-07-07] MEDS ORDERED: VANCOMYCIN IV PER PHARMACY XX SCH (14:30)
[2018-07-07] MEDS ORDERED: MAGNESIUM SULFATE 4 GM/100 ML 100 ML IVPB ONE (14:30)
[2018-07-07 14:33] VITALS: BP 118/74; PULSE 100; RESP 18
[2018-07-07] MEDS ORDERED: VANCOMYCIN HCL 1.5 GM in SOD CHLORIDE 0.9% 250 ML IVPB SCH (16:00)
[2018-07-07] MEDS: ALBUTEROL 0.083% (NEB) 2.5 MG/3 ML AMP NEB SCH ×2 (17:00→19:20)
[2018-07-07] MEDS: ALBUTEROL HFA 8 GM INHALER INH SCH ×2 (17:32→21:33)
[2018-07-07] MEDS: INSULIN ASPART [NOVOLOG] 3 ML PEN SC SCH ×2 (17:36→21:00)
[2018-07-07 20:00] VITALS: BP 153/85; PULSE 98; RESP 18
[2018-07-07] MEDS: PIPER-TAZO 3.375 GM IV (PMX) 100 ML IVPB SCH (20:24)
[2018-07-07] MEDS: ATORVASTATIN 40 MG TAB PO SCH (21:32)
[2018-07-07] MEDS ORDERED: ZOLPIDEM 5 MG TAB PO SCH (22:30)
[2018-07-08] MEDS: ALBUTEROL 0.083% (NEB) 2.5 MG/3 ML AMP NEB SCH ×4 (01:04→19:33)
[2018-07-08] MEDS: ACETYLCYSTEINE 20% 4 ML VIAL NEB SCH ×4 (01:04→19:33)
[2018-07-08] MEDS: ALBUTEROL HFA 8 GM INHALER INH SCH ×4 (01:40→21:53)
[2018-07-08] MEDS: PIPER-TAZO 3.375 GM IV (PMX) 100 ML IVPB SCH ×3 (01:40→17:39)
[2018-07-08 01:43] VITALS: BP 120/75; PULSE 86; RESP 19
[2018-07-08] MEDS: VANCOMYCIN HCL 1.25 GM in SOD CHLORIDE 0.9% 250 ML IVPB SCH ×2 (06:15→21:38)
[2018-07-08 08:00] VITALS: BP 150/60; PULSE 100; RESP 20
[2018-07-08] MEDS: INSULIN ASPART [NOVOLOG] 3 ML PEN SC SCH ×4 (08:00→20:45)
[2018-07-08] MEDS: BACLOFEN 10 MG TAB PO SCH ×3 (08:55→20:42)
[2018-07-08] MEDS: HEPARIN 5,000 UNIT/1 ML VIAL SC SCH ×2 (08:55→20:46)
[2018-07-08] MEDS: ASCORBIC ACID 500 MG TAB PO SCH (08:55)
[2018-07-08] MEDS: FLUTICASONE 0.05% 16 GM NAS SPRAY NASAL SCH ×2 (08:56→20:41)
[2018-07-08] MEDS: COLLAGENASE 5 GM (UD JAR) TOP SCH (08:56)
[2018-07-08] MEDS ORDERED: METF-849 PO (13:10)
[2018-07-08 14:00] VITALS: BP 146/78; PULSE 94; RESP 20
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
[2018-07-08] MEDS: ATORVASTATIN 40 MG TAB PO SCH (20:41)
[2018-07-08 20:54] VITALS: BP 123/73; PULSE 96; RESP 18
[2018-07-08] MEDS ORDERED: ZOLPIDEM 5 MG TAB PO PRN (22:00)
[2018-07-09] VITALS (17 sets, daily range): BP systolic 125–140; BP diastolic 74–86; PULSE 62–106; RESP 16–20
[2018-07-09] MEDS: PIPER-TAZO 3.375 GM IV (PMX) 100 ML IVPB SCH ×3 (02:03→21:44)
[2018-07-09] MEDS: ALBUTEROL HFA 8 GM INHALER INH SCH ×4 (02:04→21:44)
[2018-07-09] MEDS: ALBUTEROL 0.083% (NEB) 2.5 MG/3 ML AMP NEB SCH ×4 (02:50→19:35)
[2018-07-09] MEDS: ACETYLCYSTEINE 20% 4 ML VIAL NEB SCH ×4 (02:50→19:35)
[2018-07-09] MEDS: INSULIN ASPART [NOVOLOG] 3 ML PEN SC SCH ×4 (07:55→20:33)
[2018-07-09] MEDS: BACLOFEN 10 MG TAB PO SCH ×3 (10:54→20:15)
[2018-07-09] MEDS: FLUTICASONE 0.05% 16 GM NAS SPRAY NASAL SCH ×2 (10:55→20:16)
[2018-07-09] MEDS: ASCORBIC ACID 500 MG TAB PO SCH (10:55)
[2018-07-09] MEDS: COLLAGENASE 5 GM (UD JAR) TOP SCH (10:55)
[2018-07-09] MEDS: HEPARIN 5,000 UNIT/1 ML VIAL SC SCH ×2 (11:03→20:33)
[2018-07-09] MEDS: VANCOMYCIN HCL 1.25 GM in SOD CHLORIDE 0.9% 250 ML IVPB SCH ×2 (13:33→18:11)
[2018-07-09] MEDS: metFORMIN 500 MG TAB PO SCH (13:39)
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
[2018-07-09] MEDS ORDERED: POTASSIUM CHLORIDE 100 ML IVPB ONE (15:30)
[2018-07-09] MEDS ORDERED: DEXTROSE 50% 50 ML SYRINGE IV PRN ×2 (17:30)
[2018-07-09] MEDS ORDERED: GLUCOSE GEL 15 GRAM TUBE PO PRN ×2 (17:30)
[2018-07-09] MEDS ORDERED: GLUCOSE GEL 15 GRAM TUBE BUCCAL PRN (17:30)
[2018-07-09] MEDS ORDERED: GLUCAGON 1 MG INJ IM PRN (17:30)
[2018-07-09] MEDS: ATORVASTATIN 40 MG TAB PO SCH (20:16)
[2018-07-09] MEDS ORDERED: ZOLPIDEM 5 MG TAB PO ONE (21:35)
[2018-07-10] VITALS (16 sets, daily range): BP systolic 134–158; BP diastolic 76–96; PULSE 66–101; RESP 19–20
[2018-07-10] MEDS: ACETYLCYSTEINE 20% 4 ML VIAL NEB SCH ×5 (01:01→20:13)
[2018-07-10] MEDS: ALBUTEROL 0.083% (NEB) 2.5 MG/3 ML AMP NEB SCH ×5 (01:01→20:13)
[2018-07-10] MEDS: ALBUTEROL HFA 8 GM INHALER INH SCH ×3 (03:14→13:40)
[2018-07-10] MEDS: PIPER-TAZO 3.375 GM IV (PMX) 100 ML IVPB SCH ×4 (03:14→23:00)
[2018-07-10] MEDS: INSULIN ASPART [NOVOLOG] 3 ML PEN SC SCH ×4 (07:55→21:23)
[2018-07-10] MEDS: FLUTICASONE 0.05% 16 GM NAS SPRAY NASAL SCH ×2 (09:39→21:00)
[2018-07-10] MEDS: ASCORBIC ACID 500 MG TAB PO SCH (09:40)
[2018-07-10] MEDS: BACLOFEN 10 MG TAB PO SCH ×3 (09:40→21:20)
[2018-07-10] MEDS: COLLAGENASE 5 GM (UD JAR) TOP SCH (09:40)
[2018-07-10] MEDS: HEPARIN 5,000 UNIT/1 ML VIAL SC SCH ×2 (09:59→21:22)
[2018-07-10] MEDS: metFORMIN 500 MG TAB PO SCH (12:14)
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
[2018-07-10] MEDS ORDERED: GUAIFENESIN/DM 5ML CUP PO PRN (14:00)
[2018-07-10] MEDS: POTASSIUM CHLORIDE 20 MEQ POWDER FOR ORAL SOLN PO SCH (15:13)
[2018-07-10] MEDS: VANCOMYCIN HCL 1.5 GM in SOD CHLORIDE 0.9% 250 ML IVPB SCH (18:37)
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
[2018-07-10] MEDS: ATORVASTATIN 40 MG TAB PO SCH (21:20)
[2018-07-10] MEDS: FAMOTIDINE 20 MG TAB PO SCH (21:20)
[2018-07-11] VITALS (8 sets, daily range): BP systolic 143–167; BP diastolic 80–89; PULSE 84–97; RESP 16–20
[2018-07-11] MEDS: ALBUTEROL 0.083% (NEB) 2.5 MG/3 ML AMP NEB SCH ×4 (01:54→19:51)
[2018-07-11] MEDS: ACETYLCYSTEINE 20% 4 ML VIAL NEB SCH ×4 (01:54→19:51)
[2018-07-11] MEDS: PIPER-TAZO 3.375 GM IV (PMX) 100 ML IVPB SCH (06:10)
[2018-07-11] MEDS: INSULIN ASPART [NOVOLOG] 3 ML PEN SC SCH ×4 (08:10→20:24)
[2018-07-11] MEDS: HEPARIN 5,000 UNIT/1 ML VIAL SC SCH ×2 (08:13→20:28)
[2018-07-11] MEDS: ASCORBIC ACID 500 MG TAB PO SCH (08:15)
[2018-07-11] MEDS: POTASSIUM CHLORIDE 20 MEQ POWDER FOR ORAL SOLN PO SCH (08:15)
[2018-07-11] MEDS: FLUTICASONE 0.05% 16 GM NAS SPRAY NASAL SCH ×3 (08:15→20:44)
[2018-07-11] MEDS: BACLOFEN 10 MG TAB PO SCH ×3 (08:15→20:27)
[2018-07-11] MEDS: COLLAGENASE 5 GM (UD JAR) TOP SCH (08:16)
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
[2018-07-11] MEDS: metFORMIN 500 MG TAB PO SCH (12:14)
[2018-07-11] MEDS: ERTAPENEM SODIUM 1 GM in SOD CHLORIDE 0.9% 100 ML IVPB SCH (13:08)
[2018-07-11] MEDS: VANCOMYCIN HCL 1.5 GM in SOD CHLORIDE 0.9% 250 ML IVPB SCH (20:25)
[2018-07-11] MEDS: FAMOTIDINE 20 MG TAB PO SCH (20:26)
[2018-07-11] MEDS: ATORVASTATIN 40 MG TAB PO SCH (20:27)
[2018-07-11] MEDS: ACETAMINOPHEN 325 MG TAB PO PRN (20:49)
[2018-07-12] VITALS (21 sets, daily range): BP systolic 116–160; BP diastolic 70–89; PULSE 79–115; RESP 18–29
[2018-07-12] MEDS: ACETYLCYSTEINE 20% 4 ML VIAL NEB SCH ×4 (01:43→20:08)
[2018-07-12] MEDS: ALBUTEROL 0.083% (NEB) 2.5 MG/3 ML AMP NEB SCH ×4 (01:44→20:07)
[2018-07-12] MEDS ORDERED: ZOLPIDEM 5 MG TAB PO ONE (04:00)
[2018-07-12] MEDS: POTASSIUM CHLORIDE 20 MEQ POWDER FOR ORAL SOLN PO SCH (09:00)
[2018-07-12] MEDS: FLUTICASONE 0.05% 16 GM NAS SPRAY NASAL SCH ×2 (09:00→22:24)
[2018-07-12] MEDS: COLLAGENASE 5 GM (UD JAR) TOP SCH (09:00)
[2018-07-12] MEDS: ASCORBIC ACID 500 MG TAB PO SCH (09:00)
[2018-07-12] MEDS: INSULIN ASPART [NOVOLOG] 3 ML PEN SC SCH ×4 (09:13→21:00)
[2018-07-12] MEDS: BACLOFEN 10 MG TAB PO SCH ×4 (09:15→23:22)
[2018-07-12] MEDS: HEPARIN 5,000 UNIT/1 ML VIAL SC SCH ×2 (09:22→22:27)
[2018-07-12] MEDS ORDERED: FUROSEMIDE 20 MG INJ IV ONE (09:30)
[2018-07-12] MEDS: metFORMIN 500 MG TAB PO SCH (11:30)
[2018-07-12] MEDS: ERTAPENEM SODIUM 1 GM in SOD CHLORIDE 0.9% 100 ML IVPB SCH (12:41)
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
[2018-07-12] MEDS ORDERED: MAGNESIUM SULFATE 2 GM/50 ML 50 ML IVPB ONE (14:30)
--- NOTE | 2018-07-12 14:47 | CONS ---
Assessment/Plan Assessment/Plan Hospital Course (Demo Recall) Patient was transferred to ICU as the bed on telemetry was unavailable, he is on BiPAP now, awake looks comfortable in no distress. No fevers overnight. BUN 5 creatinine 0.47. Chest x-ray this morning revealed mild atelectasis at the lung bases, improved. Antimicrobials: Vancomycin, Invanz Allergies: Sulfa Rocephin nitrofurantoin Indwelling: Suprapubic catheter, colostomy, peripheral IV Physical examination: Well-developed chronically ill-appearing middle-aged man who is awake in no distress. Head atraumatic normocephalic sclera nonicteric. Neck is supple. Chest rise symmetrical breath sounds diminished bases. Heart: S1-S2. Abdomen soft, bowel sounds present. Extremities wasted without cyanosis. Assessment: 1. Acute hypoxemic respiratory failure, possible aspiration versus healthcare associated pneumonia 2. E. coli UTI 3. Paraplegia 4. Neurogenic bladder 5. Diabetes Plan: Patient remains stable on BiPAP, continue antibiotics, follow pulmonary recommendations Consultation Date/Type/Reason Admit Date/Time Jul 06, 2018 at 04:04 Initial Consult Date Type of Consult id Date/Time of Note DATE: 07/12/18 TIME: 14:46 Exam/Review of Systems Exam Vitals Vital Signs Date Temp Pulse Resp B/P (MAP) Pulse Ox O2 O2 Flow FiO2 Time Delivery Rate 07/12/18 84 22 140/80 12:00 (100) 07/12/18 100 BIPAP 11:00 07/12/18 98.0 10:20 07/12/18 4.0 09:00 07/12/18 80 08:31 Intake and Output 07/11/18 07/11/18 07/12/18 1515:00 23:00 07:00 IntakeIntake Total 100 ml 600 ml 250 ml OutputOutput Total 1600 ml BalanceBalance 100 ml -1000 ml 250 ml Results Result Diagram: 07/11/18 0644 07/12/18 0942 Results 24hrs Laboratory Tests Test 07/11/18 17:06 07/11/18 20:23 07/12/18 08:42 07/12/18 09:00 Bedside Glucose 105 131 172 Blood Gas Blood arterial Specimen Source Arterial Blood 07/12/2018 9:44:29 Date Drawn AM Arterial Blood pH 7.352 (Temp corrected) Arterial Blood 64.8 H pCO2 (Temp correct) Arterial Blood 109.3 H pO2 (Temp corrected) Arterial Blood 35.1 H HCO3 Arterial Blood 7.6 H Base Excess Arterial Blood 97.4 Oxygen Saturation Los Test ACCEPTAB Arterial Blood Left Radial Gas Puncture Site Arterial 0.3 Blood Carboxyhemo globin Arterial Blood 0.3 Methemoglobin Blood Gas A-a O2 393.1 H Differential Oxyhemoglobin 96.8 Percent Blood Gas 37.0 Temperature Blood Gas 20.0 Respiration Rate Blood Gas Actual 32 Respiration Rate Blood Gas MASK - BIPAP Modality FiO2 80.0 Blood Gas 10 Pressure Support Blood Gas 10 IPAP/EPAP Ratio Blood Gas TM Notified Whom Blood Gas 07/12/2018 9:52:11 Notified Time AM Test 07/12/18 09:42 07/12/18 11:50 D-Dimer 567.43 H D-Dimer Comment Sodium Level 141 Potassium Level 3.8 Chloride Level 100 Carbon Dioxide 35 H Level Anion Gap 6 Blood Urea 5 L Nitrogen Creatinine 0.47 L Est Glomerular > 60 Filtrat Rate mL/min Glucose Level 111 Calcium Level 8.9 Magnesium Level 1.5 L Creatine Kinase 41 Creatine Kinase 1.2 Index Creatinine Kinase 0.49 MB (Mass) Troponin I < 0.012 B-Type 589 H Natriuretic Peptide Bedside Glucose 186 Medications Medication Current Medications IV Flush (NS 3 ml) 3 ml PER PROTOCOL IV ; Start 07/06/18 at 05:00 Ondansetron HCl (Zofran Inj) 4 mg Q6H PRN IV NAUSEA/VOMITING; Start 07/06/18 at 05:00 Acetaminophen (Tylenol Tab) 650 mg Q6H PRN PO .PAIN 1-3 OR TEMP Last administered on 07/11/18at 20:49; Admin Dose 650 MG; Start 07/06/18 at 05:00 Acetaminophen/ Hydrocodone Bitart ([place] (5/325)) 1 tab Q6H PRN PO .MOD PAIN 4- 6; Start 07/06/18 at 05:00 Acetaminophen/ Hydrocodone Bitart ([place] (5/325)) 2 tab Q6H PRN PO .SEVERE PAIN 7-10; Start 07/06/18 at 05:00 Heparin Sodium (Porcine) (Heparin (5000 Units/1ml)) 5,000 unit Q12 SC Last administered on 07/12/18at 09:22; Admin Dose 5,000 UNIT; Start 07/06/18 at 09:00 Ascorbic Acid (Vitamin C) 1,000 mg DAILY PO Last administered on 07/11/18 08:15; Admin Dose 1,000 MG; Start 07/06/18 at 09:00 Atorvastatin Calcium (Lipitor) 40 mg QHS PO Last administered on 07/11/18 20:27; Admin Dose 40 MG; Start 07/06/18 at 21:00 Baclofen (Lioresal) 20 mg TID PO Last administered on 07/12/18 09:15; Admin Dose 20 MG; Start 07/06/18 at 09:00 Fluticasone Propionate (Flonase 0.05% Nasal) 1 spray BID NASAL Last administered on 07/11/18 08:15; Admin Dose 1 SPRAY; Start 07/06/18 at 09:00 Hydroxyzine HCl (Atarax) 25 mg BID PRN PO ITCHING; Start 07/06/18 at 05:00 Naproxen (Naprosyn) 500 mg BID PRN PO PAIN; Start 07/06/18 at 05:00 Miscellaneous Information (Pending Santyl Order For Wound Care) This patient h a... PRN PRN XX WOUND CARE; Start 07/06/18 at 11:00 Acetylcysteine (Mucomyst) 1 ml Q6H RESP THERAPY NEB Last administered on 07/12/18 07:25; Admin Dose 1 ML; Start 07/06/18 at 14:00 Collagenase (Santyl) 1 applic DAILY TOP Last administered on 07/11/18 08:16; Admin Dose 1 APPLIC; Start 07/08/18 at 09:00 Vancomycin HCl (Vanco Iv Per Pharmacy) VANCOMYCIN PER PHARMACY PER PROTOCOL XX ; Start 07/07/18 at 14:30 Albuterol (Proventil 0.083% (Neb)) 2.5 mg Q6H RESP THERAPY NEB Last administered on 07/12/18 07:25; Admin Dose 2.5 MG; Start 07/07/18 at 17:00 Albuterol (Ventolin Hfa) 2 puff Q6H RESP THERAPY INH Last administered on 07/10/18at 13:40; Admin Dose 2 PUFF; Start 07/07/18 at 17:00; Status Hold Insulin Aspart (Novolog Insulin Pen) NOVOLOG *MODERATE* ALGORITHM WITH MEALS BEDTIME SC Last administered on 07/12/18at 12:41; Admin Dose 4 UNIT; Start 07/07/18 at 18:05 Metformin HCl (Glucophage) 500 mg WITH LUNCH PO Last administered on 07/12/18at 11:30; Admin Dose 500 MG; Start 07/09/18 at 11:50 Miscellaneous Information 1 ea NOTE XX ; Start 07/09/18 at 17:30 Glucose (Glutose) 15 gm Q15M PRN PO DECREASED GLUCOSE; Start 07/09/18 at 17:30 Glucose (Glutose) 22.5 gm Q15M PRN PO DECREASED GLUCOSE; Start 07/09/18 at 17:30 Dextrose (D50w Syringe) 25 ml Q15M PRN IV DECREASED GLUCOSE; Start 07/09/18 at 17:30 Dextrose (D50w Syringe) 50 ml Q15M PRN IV DECREASED GLUCOSE; Start 07/09/18 at 17:30 Glucagon (Glucagen) 1 mg Q15M PRN IM DECREASED GLUCOSE; Start 07/09/18 at 17:30 Glucose (Glutose) 15 gm Q15M PRN BUCCAL DECREASED GLUCOSE; Start 07/09/18 at 17:30 Vancomycin HCl 1.5 gm/Sodium Chloride 250 ml @ 83.333 mls/ hr Q24H IVPB Last administered on 07/11/18at 20:25; Admin Dose 83.333 MLS/HR; Start 07/10/18 at 18:00 Famotidine (Pepcid) 20 mg HS PO Last administered on 07/11/18at 20:26; Admin Dose 20 MG; Start 07/10/18 at 21:00 Guaifenesin/ Dextromethorphan (Robitussin Dm Liquid Cup) 10 ml Q4H PRN PO COUGH; Start 07/10/18 at 14:00 Potassium Chloride (Potassium Chloride Pwd/Soln) 40 meq DAILY PO Last administered on 07/11/18at 08:15; Admin Dose 40 MEQ; Start 07/10/18 at 14:00 Ertapenem 1 gm/ Sodium Chloride 100 ml @ 200 mls/hr Q24H IVPB Last administered on 07/12/18at 12:41; Admin Dose 200 MLS/HR; Start 07/11/18 at 12:00 Magnesium Sulfate 50 ml @ 25 mls/hr ONCE ONCE IVPB ; Start 07/12/18 at 14:30; Stop 07/12/18 at 16:29 MALIKA FISHER NP Jul 12, 2018 14:47
[2018-07-12] MEDS: VANCOMYCIN HCL 1.5 GM in SOD CHLORIDE 0.9% 250 ML IVPB SCH (18:22)
[2018-07-12] MEDS: HYDROCODONE/APAP (5/325) TAB PO PRN (18:30)
[2018-07-12] MEDS: ATORVASTATIN 40 MG TAB PO SCH ×2 (21:00→23:23)
[2018-07-12] MEDS: FAMOTIDINE 20 MG TAB PO SCH ×2 (21:00→23:23)
[2018-07-13] VITALS (18 sets, daily range): BP systolic 110–156; BP diastolic 67–91; PULSE 67–101; RESP 18–20
[2018-07-13] MEDS: ALBUTEROL 0.083% (NEB) 2.5 MG/3 ML AMP NEB SCH ×4 (02:08→20:03)
[2018-07-13] MEDS: ACETYLCYSTEINE 20% 4 ML VIAL NEB SCH ×4 (02:08→20:03)
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
[2018-07-13] MEDS: INSULIN ASPART [NOVOLOG] 3 ML PEN SC SCH ×4 (08:00→21:00)
[2018-07-13] MEDS: FLUTICASONE 0.05% 16 GM NAS SPRAY NASAL SCH ×2 (08:13→22:34)
[2018-07-13] MEDS: ASCORBIC ACID 500 MG TAB PO SCH (08:14)
[2018-07-13] MEDS: BACLOFEN 10 MG TAB PO SCH ×3 (08:14→22:35)
[2018-07-13] MEDS: POTASSIUM CHLORIDE 20 MEQ POWDER FOR ORAL SOLN PO SCH (08:14)
[2018-07-13] MEDS: COLLAGENASE 5 GM (UD JAR) TOP SCH (08:14)
[2018-07-13] MEDS: HEPARIN 5,000 UNIT/1 ML VIAL SC SCH ×2 (09:09→22:40)
[2018-07-13] MEDS: ERTAPENEM SODIUM 1 GM in SOD CHLORIDE 0.9% 100 ML IVPB SCH ×2 (12:00→17:47)
--- NOTE | 2018-07-13 12:17 | CONS ---
Consult Date/Type/Reason Admit Date/Time Jul 06, 2018 at 04:04 Initial Consult Date Type of Consult Pulmonary Date/Time of Note DATE: 07/13/18 TIME: 12:15 Subjective Still some shortness of breath this morning but less accessory muscle use. Objective Vital Signs Date Temp Pulse Resp B/P (MAP) Pulse Ox O2 O2 Flow FiO2 Time Delivery Rate 07/13/18 101 12:07 07/13/18 98.3 20 148/85 93 Room Air 11:38 (106) 07/13/18 3.0 08:28 07/13/18 40 05:01 Intake and Output 07/12/18 07/12/18 07/13/18 1515:00 23:00 07:00 IntakeIntake Total 300 ml OutputOutput Total 1000 ml 1600 ml BalanceBalance -700 ml -1600 ml Exam PHYSICAL EXAMINATION: GENERAL: Well-nourished, well-developed gentleman, appears comfortable at rest, in no acute distress. VITAL SIGNS: As above NECK: Trach site has healed. CARDIAC: S1, S2. Tachycardia. CHEST: Diminished air entry bilaterally. ABDOMEN: Soft, nontender. No guarding or rebound. EXTREMITIES: No cyanosis, clubbing. A 2+ edema. NEUROLOGIC: With contractures. Vent Setting Fraction of Inspired Oxygen pe: 50 Results/Medications Result Diagram: 07/13/18 0525 07/13/18 0525 Results 24 hrs Laboratory Tests Test 07/12/18 18:29 07/12/18 22:22 07/13/18 05:25 07/13/18 07:00 Bedside Glucose 114 128 White Blood Count 5.1 Red Blood Count 3.53 L Hemoglobin 10.9 L Hematocrit 33.7 L Mean Corpuscular 95.5 Volume Mean Corpuscular 30.9 Hemoglobin Mean Corpuscular 32.3 Hemoglobin Concent Red Cell 14.7 H Distribution Width Platelet Count 184 Mean Platelet 9.6 Volume Immature 1.400 H Granulocytes % Neutrophils % 74.3 Lymphocytes % 12.8 L Monocytes % 10.1 Eosinophils % 0.8 Basophils % 0.6 Nucleated Red 0.0 Blood Cells % Immature 0.070 H Granulocytes # Neutrophils # 3.8 Lymphocytes # 0.7 L Monocytes # 0.5 Eosinophils # 0.0 Basophils # 0.0 Nucleated Red 0.0 Blood Cells # Sodium Level 139 Potassium Level 3.5 Chloride Level 95 L Carbon Dioxide 33 H Level Anion Gap 11 Blood Urea 10 Nitrogen Creatinine 0.45 L Est Glomerular > 60 Filtrat Rate mL/min Glucose Level 82 Calcium Level 8.8 Phosphorus Level 3.9 Magnesium Level 2.1 Blood Gas Specimen Blood arterial Source Arterial Blood 07/13/2018 9:10:44 Date Drawn AM Arterial Blood pH 7.443 (Temp corrected) Arterial Blood 45.3 H pCO2 (Temp correct) Arterial Blood pO2 59.7 L (Temp corrected) Arterial Blood 30.3 H HCO3 Arterial Blood 5.5 H Base Excess Arterial Blood 90.7 L Oxygen Saturation Los Test ACCEPTAB Arterial Blood Gas Right Radial Puncture Site Arterial 0.5 Blood Carboxyhemog lobin Arterial Blood 0.4 Methemoglobin Blood Gas A-a O2 101.0 H Differential Oxyhemoglobin 89.9 L Percent Blood Gas 37.0 Temperature Blood Gas Modality NASAL CANNULA FiO2 30.0 Blood Gas Notified TM Whom Blood Gas Notified 07/13/2018 9:31:23 Time AM Test 07/13/18 08:10 Bedside Glucose 108 Medications Current Medications IV Flush (NS 3 ml) 3 ml PER PROTOCOL IV ; Start 07/06/18 at 05:00 Ondansetron HCl (Zofran Inj) 4 mg Q6H PRN IV NAUSEA/VOMITING; Start 07/06/18 at 05:00 Acetaminophen (Tylenol Tab) 650 mg Q6H PRN PO .PAIN 1-3 OR TEMP Last admin istered on 07/11/18at 20:49; Admin Dose 650 MG; Start 07/06/18 at 05:00 Acetaminophen/ Hydrocodone Bitart ([place] (5/325)) 1 tab Q6H PRN PO .MOD PAIN 4- 6 Last administered on 07/12/18at 18:30; Admin Dose 1 TAB; Start 07/06/18 at 05:00 Acetaminophen/ Hydrocodone Bitart ([place] (5/325)) 2 tab Q6H PRN PO .SEVERE PAIN 7-10; Start 07/06/18 at 05:00 Heparin Sodium (Porcine) (Heparin (5000 Units/1ml)) 5,000 unit Q12 SC Last administered on 07/13/18at 09:09; Admin Dose 5,000 UNIT; Start 07/06/18 at 09:00 Ascorbic Acid (Vitamin C) 1,000 mg DAILY PO Last administered on 07/13/18 08:14; Admin Dose 1,000 MG; Start 07/06/18 at 09:00 Atorvastatin Calcium (Lipitor) 40 mg QHS PO Last administered on 07/12/18 23:23; Admin Dose 40 MG; Start 07/06/18 at 21:00 Baclofen (Lioresal) 20 mg TID PO Last administered on 07/13/18 08:14; Admin Dose 20 MG; Start 07/06/18 at 09:00 Fluticasone Propionate (Flonase 0.05% Nasal) 1 spray BID NASAL Last administered on 07/13/18 08:13; Admin Dose 1 SPRAY; Start 07/06/18 at 09:00 Hydroxyzine HCl (Atarax) 25 mg BID PRN PO ITCHING; Start 07/06/18 at 05:00 Naproxen (Naprosyn) 500 mg BID PRN PO PAIN; Start 07/06/18 at 05:00 Miscellaneous Information (Pending Santyl Order For Wound Care) This patient lopez... PRN PRN XX WOUND CARE; Start 07/06/18 at 11:00 Acetylcysteine (Mucomyst) 1 ml Q6H RESP THERAPY NEB Last administered on 07/13/18 07:39; Admin Dose 1 ML; Start 07/06/18 at 14:00 Collagenase (Santyl) 1 applic DAILY TOP Last administered on 07/13/18 08:14; Admin Dose 1 APPLIC; Start 07/08/18 at 09:00 Vancomycin HCl (Vanco Iv Per Pharmacy) VANCOMYCIN PER PHARMACY PER PROTOCOL XX ; Start 07/07/18 at 14:30 Albuterol (Proventil 0.083% (Neb)) 2.5 mg Q6H RESP THERAPY NEB Last administered on 07/13/18 07:39; Admin Dose 2.5 MG; Start 07/07/18 at 17:00 Albuterol (Ventolin Hfa) 2 puff Q6H RESP THERAPY INH Last administered on 07/10/18 13:40; Admin Dose 2 PUFF; Start 07/07/18 at 17:00; Status Hold Insulin Aspart (Novolog Insulin Pen) NOVOLOG *MODERATE* ALGORITHM WITH MEALS BEDTIME SC Last administered on 07/12/18 12:41; Admin Dose 4 UNIT; Start 07/07/18 at 18:05 Metformin HCl (Glucophage) 500 mg WITH LUNCH PO Last administered on 07/12/18at 11:30; Admin Dose 500 MG; Start 07/09/18 at 11:50 Miscellaneous Information 1 ea NOTE XX ; Start 07/09/18 at 17:30 Glucose (Glutose) 15 gm Q15M PRN PO DECREASED GLUCOSE; Start 07/09/18 at 17:30 Glucose (Glutose) 22.5 gm Q15M PRN PO DECREASED GLUCOSE; Start 07/09/18 at 17:30 Dextrose (D50w Syringe) 25 ml Q15M PRN IV DECREASED GLUCOSE; Start 07/09/18 at 17:30 Dextrose (D50w Syringe) 50 ml Q15M PRN IV DECREASED GLUCOSE; Start 07/09/18 at 17:30 Glucagon (Glucagen) 1 mg Q15M PRN IM DECREASED GLUCOSE; Start 07/09/18 at 17:30 Glucose (Glutose) 15 gm Q15M PRN BUCCAL DECREASED GLUCOSE; Start 07/09/18 at 17:30 Vancomycin HCl 1.5 gm/Sodium Chloride 250 ml @ 83.333 mls/ hr Q24H IVPB Last administered on 07/12/18at 18:22; Admin Dose 83.333 MLS/HR; Start 07/10/18 at 18:00 Famotidine (Pepcid) 20 mg HS PO Last administered on 07/12/18at 23:23; Admin Dose 20 MG; Start 07/10/18 at 21:00 Guaifenesin/ Dextromethorphan (Robitussin Dm Liquid Cup) 10 ml Q4H PRN PO COUGH; Start 07/10/18 at 14:00 Potassium Chloride (Potassium Chloride Pwd/Soln) 40 meq DAILY PO Last administered on 07/13/18at 08:14; Admin Dose 40 MEQ; Start 07/10/18 at 14:00 Ertapenem 1 gm/ Sodium Chloride 100 ml @ 200 mls/hr Q24H IVPB Last adm inistered on 07/12/18at 12:41; Admin Dose 200 MLS/HR; Start 07/11/18 at 12:00 Miscellaneous Information (*Rx Drug Level Order Reminder*) LINDSEY TR 07/13 AT 1700 1700 ONCE XX ; Start 07/13/18 at 17:00; Stop 07/13/18 at 17:01 Assessment/Plan Hospital Course (Demo Recall) IMPRESSION 1. Acute on chronic hypoxemic and hypercapnic respiratory failure. 2. Possible aspiration pneumonia versus healthcare-associated pneumonia. 3. Mild volume overload. 4. History of paraplegia with prior tracheostomy. Plan 1. Continued antibiotics. 2. Pulmonary toilet. 3. Noninvasive positive pressure ventilation. 4. DVT and GI prophylaxis. Consider Duarte eval if not improving. Patient may benefit from percussion vest. RODRÍGUEZ SONG MD, [facility] Jul 13, 2018 12:16
[2018-07-13] MEDS: metFORMIN 500 MG TAB PO SCH (12:34)
--- NOTE | 2018-07-13 15:04 | CONS ---
Assessment/Plan Assessment/Plan Hospital Course (Demo Recall) Comfortable on Bipap, no fevers Sacral wound culture grew MRSA, Maricruz albicans and Corynebacterium species Antimicrobials: Vancomycin, Invanz Allergies: Sulfa Rocephin nitrofurantoin Indwelling: Suprapubic catheter, colostomy, peripheral IV Physical examination: Well-developed chronically ill-appearing middle-aged man who is awake in no distress. Head atraumatic normocephalic sclera nonicteric. Neck is supple. Chest rise symmetrical breath sounds diminished bases. Heart: S1-S2. Abdomen soft, bowel sounds present. Extremities wasted without cyanosis. Assessment: 1. Acute hypoxemic respiratory failure, possible aspiration versus healthcare associated pneumonia 2. E. coli UTI 3. Paraplegia 4. Neurogenic bladder 5. Diabetes 6. Chronic decubitus ulcers Plan: Patient remains stable, continue antibiotics, follow pulmonary recommendations Consultation Date/Type/Reason Admit Date/Time Jul 06, 2018 at 04:04 Initial Consult Date Type of Consult id Date/Time of Note DATE: 07/13/18 TIME: 15:00 Exam/Review of Systems Exam Vitals Vital Signs Date Temp Pulse Resp B/P (MAP) Pulse Ox O2 O2 Flow FiO2 Time Delivery Rate 07/13/18 78 27 100 40 13:05 07/13/18 98.3 148/85 Room Air 11:38 (106) 07/13/18 3.0 08:28 Intake and Output 07/12/18 07/12/18 07/13/18 1515:00 23:00 07:00 IntakeIntake Total 300 ml OutputOutput Total 1000 ml 1600 ml BalanceBalance -700 ml -1600 ml Results Result Diagram: 07/13/18 0525 07/13/18 0525 Results 24hrs Laboratory Tests Test 07/12/18 18:29 07/12/18 22:22 07/13/18 05:25 07/13/18 07:00 Bedside Glucose 114 128 White Blood Count 5.1 Red Blood Count 3.53 L Hemoglobin 10.9 L Hematocrit 33.7 L Mean Corpuscular 95.5 Volume Mean Corpuscular 30.9 Hemoglobin Mean Corpuscular 32.3 Hemoglobin Concent Red Cell 14.7 H Distribution Width Platelet Count 184 Mean Platelet 9.6 Volume Immature 1.400 H Granulocytes % Neutrophils % 74.3 Lymphocytes % 12.8 L Monocytes % 10.1 Eosinophils % 0.8 Basophils % 0.6 Nucleated Red 0.0 Blood Cells % Immature 0.070 H Granulocytes # Neutrophils # 3.8 Lymphocytes # 0.7 L Monocytes # 0.5 Eosinophils # 0.0 Basophils # 0.0 Nucleated Red 0.0 Blood Cells # Sodium Level 139 Potassium Level 3.5 Chloride Level 95 L Carbon Dioxide 33 H Level Anion Gap 11 Blood Urea 10 Nitrogen Creatinine 0.45 L Est Glomerular > 60 Filtrat Rate mL/min Glucose Level 82 Calcium Level 8.8 Phosphorus Level 3.9 Magnesium Level 2.1 Blood Gas Specimen Blood arterial Source Arterial Blood 07/13/2018 9:10:44 Date Drawn AM Arterial Blood pH 7.443 (Temp corrected) Arterial Blood 45.3 H pCO2 (Temp correct) Arterial Blood pO2 59.7 L (Temp corrected) Arterial Blood 30.3 H HCO3 Arterial Blood 5.5 H Base Excess Arterial Blood 90.7 L Oxygen Saturation Los Test ACCEPTAB Arterial Blood Gas Right Radial Puncture Site Arterial 0.5 Blood Carboxyhemog lobin Arterial Blood 0.4 Methemoglobin Blood Gas A-a O2 101.0 H Differential Oxyhemoglobin 89.9 L Percent Blood Gas 37.0 Temperature Blood Gas Modality NASAL CANNULA FiO2 30.0 Blood Gas Notified TM Whom Blood Gas Notified 07/13/2018 9:31:23 Time AM Test 07/13/18 08:10 07/13/18 12:33 Bedside Glucose 108 126 Medications Medication Current Medications IV Flush (NS 3 ml) 3 ml PER PROTOCOL IV ; Start 07/06/18 at 05:00 Ondansetron HCl (Zofran Inj) 4 mg Q6H PRN IV NAUSEA/VOMITING; Start 07/06/18 at 05:00 Acetaminophen (Tylenol Tab) 650 mg Q6H PRN PO .PAIN 1-3 OR TEMP Last administered on 07/11/18at 20:49; Admin Dose 650 MG; Start 07/06/18 at 05:00 Acetaminophen/ Hydrocodone Bitart ([place] (5/325)) 1 tab Q6H PRN PO .MOD PAIN 4- 6 Last administered on 07/12/18at 18:30; Admin Dose 1 TAB; Start 07/06/18 at 05:00 Acetaminophen/ Hydrocodone Bitart ([place] (5/325)) 2 tab Q6H PRN PO .SEVERE PAIN 7-10; Start 07/06/18 at 05:00 Heparin Sodium (Porcine) (Heparin (5000 Units/1ml)) 5,000 unit Q12 SC Last administered on 07/13/18 09:09; Admin Dose 5,000 UNIT; Start 07/06/18 at 09:00 Ascorbic Acid (Vitamin C) 1,000 mg DAILY PO Last administered on 07/13/18 08:14; Admin Dose 1,000 MG; Start 07/06/18 at 09:00 Atorvastatin Calcium (Lipitor) 40 mg QHS PO Last administered on 07/12/18 23:23; Admin Dose 40 MG; Start 07/06/18 at 21:00 Baclofen (Lioresal) 20 mg TID PO Last administered on 07/13/18 12:34; Admin Dose 20 MG; Start 07/06/18 at 09:00 Fluticasone Propionate (Flonase 0.05% Nasal) 1 spray BID NASAL Last administered on 07/13/18 08:13; Admin Dose 1 SPRAY; Start 07/06/18 at 09:00 Hydroxyzine HCl (Atarax) 25 mg BID PRN PO ITCHING; Start 07/06/18 at 05:00 Naproxen (Naprosyn) 500 mg BID PRN PO PAIN; Start 07/06/18 at 05:00 Miscellaneous Information (Pending Santyl Order For Wound Care) This patient lopez... PRN PRN XX WOUND CARE; Start 07/06/18 at 11:00 Acetylcysteine (Mucomyst) 1 ml Q6H RESP THERAPY NEB Last administered on 07/13/18 12:56; Admin Dose 1 ML; Start 07/06/18 at 14:00 Collagenase (Santyl) 1 applic DAILY TOP Last administered on 07/13/18 08:14; Admin Dose 1 APPLIC; Start 07/08/18 at 09:00 Vancomycin HCl (Vanco Iv Per Pharmacy) VANCOMYCIN PER PHARMACY PER PROTOCOL XX ; Start 07/07/18 at 14:30 Albuterol (Proventil 0.083% (Neb)) 2.5 mg Q6H RESP THERAPY NEB Last administered on 07/13/18 12:56; Admin Dose 2.5 MG; Start 07/07/18 at 17:00 Albuterol (Ventolin Hfa) 2 puff Q6H RESP THERAPY INH Last administered on 07/10/18at 13:40; Admin Dose 2 PUFF; Start 07/07/18 at 17:00; Status Hold Insulin Aspart (Novolog Insulin Pen) NOVOLOG *MODERATE* ALGORITHM WITH MEALS BEDTIME SC Last administered on 07/12/18 12:41; Admin Dose 4 UNIT; Start 07/07/18 at 18:05 Metformin HCl (Glucophage) 500 mg WITH LUNCH PO Last administered on 07/13/18 12:34; Admin Dose 500 MG; Start 07/09/18 at 11:50 Miscellaneous Information 1 ea NOTE XX ; Start 07/09/18 at 17:30 Glucose (Glutose) 15 gm Q15M PRN PO DECREASED GLUCOSE; Start 07/09/18 at 17:30 Glucose (Glutose) 22.5 gm Q15M PRN PO DECREASED GLUCOSE; Start 07/09/18 at 17:30 Dextrose (D50w Syringe) 25 ml Q15M PRN IV DECREASED GLUCOSE; Start 07/09/18 at 17:30 Dextrose (D50w Syringe) 50 ml Q15M PRN IV DECREASED GLUCOSE; Start 07/09/18 at 17:30 Glucagon (Glucagen) 1 mg Q15M PRN IM DECREASED GLUCOSE; Start 07/09/18 at 17:30 Glucose (Glutose) 15 gm Q15M PRN BUCCAL DECREASED GLUCOSE; Start 07/09/18 at 17:30 Vancomycin HCl 1.5 gm/Sodium Chloride 250 ml @ 83.333 mls/ hr Q24H IVPB Last administered on 07/12/18at 18:22; Admin Dose 83.333 MLS/HR; Start 07/10/18 at 18:00 Famotidine (Pepcid) 20 mg HS PO Last administered on 07/12/18at 23:23; Admin Dose 20 MG; Start 07/10/18 at 21:00 Guaifenesin/ Dextromethorphan (Robitussin Dm Liquid Cup) 10 ml Q4H PRN PO COUGH; Start 07/10/18 at 14:00 Potassium Chloride (Potassium Chloride Pwd/Soln) 40 meq DAILY PO Last administered on 07/13/18 08:14; Admin Dose 40 MEQ; Start 07/10/18 at 14:00 Ertapenem 1 gm/ Sodium Chloride 100 ml @ 200 mls/hr Q24H IVPB Last administered on 07/12/18at 12:41; Admin Dose 200 MLS/HR; Start 07/11/18 at 12:00 Miscellaneous Information (*Rx Drug Level Order Reminder*) VANCO TR 07/13 AT 1700 1700 ONCE XX ; Start 07/13/18 at 17:00; Stop 07/13/18 at 17:01 MALIKA FISHER NP Jul 13, 2018 15:04
[2018-07-13] MEDS: VANCOMYCIN HCL 1.5 GM in SOD CHLORIDE 0.9% 250 ML IVPB SCH (18:46)
[2018-07-13] MEDS: ATORVASTATIN 40 MG TAB PO SCH (22:35)
[2018-07-13] MEDS: FAMOTIDINE 20 MG TAB PO SCH (22:35)
[2018-07-14] VITALS (16 sets, daily range): BP systolic 106–160; BP diastolic 67–90; PULSE 67–98; RESP 17–24
[2018-07-14] MEDS: ALBUTEROL 0.083% (NEB) 2.5 MG/3 ML AMP NEB SCH ×4 (01:35→19:45)
[2018-07-14] MEDS: ACETYLCYSTEINE 20% 4 ML VIAL NEB SCH ×4 (01:35→19:45)
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
[2018-07-14] MEDS: COLLAGENASE 5 GM (UD JAR) TOP SCH (09:21)
[2018-07-14] MEDS: FLUTICASONE 0.05% 16 GM NAS SPRAY NASAL SCH ×2 (09:21→21:11)
[2018-07-14] MEDS: POTASSIUM CHLORIDE 20 MEQ POWDER FOR ORAL SOLN PO SCH (09:21)
[2018-07-14] MEDS: ASCORBIC ACID 500 MG TAB PO SCH (09:21)
[2018-07-14] MEDS: BACLOFEN 10 MG TAB PO SCH ×4 (09:21→21:12)
[2018-07-14] MEDS: HEPARIN 5,000 UNIT/1 ML VIAL SC SCH ×2 (09:44→21:28)
[2018-07-14] MEDS: INSULIN ASPART [NOVOLOG] 3 ML PEN SC SCH ×4 (09:44→21:00)
--- NOTE | 2018-07-14 11:38 | CONS ---
Consult Date/Type/Reason Admit Date/Time Jul 06, 2018 at 04:04 Initial Consult Date Type of Consult Pulmonary Date/Time of Note DATE: 07/14/18 TIME: 11:36 Subjective Still with rales. Objective Vital Signs Date Temp Pulse Resp B/P (MAP) Pulse Ox O2 O2 Flow FiO2 Time Delivery Rate 07/14/18 89 18 96 Nasal 3.0 08:10 Cannula 07/14/18 97.5 157/89 07:44 (111) 07/14/18 40 05:31 Intake and Output 07/13/18 07/13/18 07/14/18 1515:00 23:00 07:00 IntakeIntake Total 220 ml 320 ml 120 ml OutputOutput Total 750 ml 550 ml 650 ml BalanceBalance -530 ml -230 ml -530 ml Exam PHYSICAL EXAMINATION: GENERAL: Well-nourished, well-developed gentleman, appears comfortable at rest, in no acute distress. VITAL SIGNS: As above NECK: Trach site has healed. CARDIAC: S1, S2. Tachycardia. CHEST: Diminished air entry bilaterally. bilateral rales. ABDOMEN: Soft, nontender. No guarding or rebound. EXTREMITIES: No cyanosis, clubbing. A 2+ edema. NEUROLOGIC: With contractures. Vent Setting Fraction of Inspired Oxygen pe: 40 Results/Medications Result Diagram: 07/14/18 0554 07/14/18 0554 Results 24 hrs Laboratory Tests Test 07/13/18 12:33 07/13/18 17:35 07/13/18 17:45 07/13/18 22:33 Bedside Glucose 126 98 125 Vancomycin Level Trough 16.3 Test 07/14/18 05:54 07/14/18 09:19 White Blood Count 7.3 # Red Blood Count 3.52 L Hemoglobin 10.8 L Hematocrit 34.3 L Mean Corpuscular Volume 97.4 Mean Corpuscular 30.7 Hemoglobin Mean Corpuscular 31.5 L Hemoglobin Concent Red Cell Distribution 14.6 H Width Platelet Count 171 Mean Platelet Volume 10.0 Immature Granulocytes % 1.200 H Neutrophils % 76.5 Lymphocytes % 11.1 L Monocytes % 10.5 Eosinophils % 0.3 Basophils % 0.4 Nucleated Red Blood 0.0 Cells % Immature Granulocytes # 0.090 H Neutrophils # 5.6 Lymphocytes # 0.8 Monocytes # 0.8 Eosinophils # 0.0 Basophils # 0.0 Nucleated Red Blood 0.0 Cells # Sodium Level 141 Potassium Level 4.1 Chloride Level 97 Carbon Dioxide Level 31 Anion Gap 13 Blood Urea Nitrogen 13 Creatinine 0.46 L Est Glomerular Filtrat > 60 Rate mL/min Glucose Level 85 Calcium Level 9.0 Phosphorus Level 3.6 Magnesium Level 1.9 Bedside Glucose 170 Medications Current Medications IV Flush (NS 3 ml) 3 ml PER PROTOCOL IV ; Start 07/06/18 at 05:00 Ondansetron HCl (Zofran Inj) 4 mg Q6H PRN IV NAUSEA/VOMITING; Start 07/06/18 at 05:00 Acetaminophen (Tylenol Tab) 650 mg Q6H PRN PO .PAIN 1-3 OR TEMP Last admini stered on 07/11/18 20:49; Admin Dose 650 MG; Start 07/06/18 at 05:00 Acetaminophen/ Hydrocodone Bitart ([place] (5/325)) 1 tab Q6H PRN PO .MOD PAIN 4- 6 Last administered on 07/12/18 18:30; Admin Dose 1 TAB; Start 07/06/18 at 05:00 Acetaminophen/ Hydrocodone Bitart ([place] (5/325)) 2 tab Q6H PRN PO .SEVERE PAIN 7-10; Start 07/06/18 at 05:00 Heparin Sodium (Porcine) (Heparin (5000 Units/1ml)) 5,000 unit Q12 SC Last administered on 07/14/18 09:44; Admin Dose 5,000 UNIT; Start 07/06/18 at 09:00 Ascorbic Acid (Vitamin C) 1,000 mg DAILY PO Last administered on 07/14/18 09:21; Admin Dose 1,000 MG; Start 07/06/18 at 09:00 Atorvastatin Calcium (Lipitor) 40 mg QHS PO Last administered on 07/13/18 22:35; Admin Dose 40 MG; Start 07/06/18 at 21:00 Baclofen (Lioresal) 20 mg TID PO Last administered on 07/14/18 09:21; Admin Dose 20 MG; Start 07/06/18 at 09:00 Fluticasone Propionate (Flonase 0.05% Nasal) 1 spray BID NASAL Last administered on 07/14/18 09:21; Admin Dose 1 SPRAY; Start 07/06/18 at 09:00 Hydroxyzine HCl (Atarax) 25 mg BID PRN PO ITCHING; Start 07/06/18 at 05:00 Naproxen (Naprosyn) 500 mg BID PRN PO PAIN; Start 07/06/18 at 05:00 Miscellaneous Information (Pending Santyl Order For Wound Care) This patient lopez... PRN PRN XX WOUND CARE; Start 07/06/18 at 11:00 Acetylcysteine (Mucomyst) 1 ml Q6H RESP THERAPY NEB Last administered on 07/14/18 08:10; Admin Dose 1 ML; Start 07/06/18 at 14:00 Collagenase (Santyl) 1 applic DAILY TOP Last administered on 07/14/18 09:21; Admin Dose 1 APPLIC; Start 07/08/18 at 09:00 Vancomycin HCl (Vanco Iv Per Pharmacy) VANCOMYCIN PER PHARMACY PER PROTOCOL XX ; Start 07/07/18 at 14:30 Albuterol (Proventil 0.083% (Neb)) 2.5 mg Q6H RESP THERAPY NEB Last administered on 07/14/18 08:10; Admin Dose 2.5 MG; Start 07/07/18 at 17:00 Albuterol (Ventolin Hfa) 2 puff Q6H RESP THERAPY INH Last administered on 07/10/18 13:40; Admin Dose 2 PUFF; Start 07/07/18 at 17:00; Status Hold Insulin Aspart (Novolog Insulin Pen) NOVOLOG *MODERATE* ALGORITHM WITH MEALS BEDTIME SC Last administered on 07/14/18 09:44; Admin Dose 2 UNIT; Start 07/07/18 at 18:05 Metformin HCl (Glucophage) 500 mg WITH LUNCH PO Last administered on 07/13/18 12:34; Admin Dose 500 MG; Start 07/09/18 at 11:50 Miscellaneous Information 1 ea NOTE XX ; Start 07/09/18 at 17:30 Glucose (Glutose) 15 gm Q15M PRN PO DECREASED GLUCOSE; Start 07/09/18 at 17:30 Glucose (Glutose) 22.5 gm Q15M PRN PO DECREASED GLUCOSE; Start 07/09/18 at 17:30 Dextrose (D50w Syringe) 25 ml Q15M PRN IV DECREASED GLUCOSE; Start 07/09/18 at 17:30 Dextrose (D50w Syringe) 50 ml Q15M PRN IV DECREASED GLUCOSE; Start 07/09/18 at 17:30 Glucagon (Glucagen) 1 mg Q15M PRN IM DECREASED GLUCOSE; Start 07/09/18 at 17:30 Glucose (Glutose) 15 gm Q15M PRN BUCCAL DECREASED GLUCOSE; Start 07/09/18 at 17:30 Vancomycin HCl 1.5 gm/Sodium Chloride 250 ml @ 83.333 mls/ hr Q24H IVPB Last administered on 07/13/18at 18:46; Admin Dose 83.333 MLS/HR; Start 07/10/18 at 18:00 Famotidine (Pepcid) 20 mg HS PO Last administered on 07/13/18at 22:35; Admin Dose 20 MG; Start 07/10/18 at 21:00 Guaifenesin/ Dextromethorphan (Robitussin Dm Liquid Cup) 10 ml Q4H PRN PO COUGH; Start 07/10/18 at 14:00 Potassium Chloride (Potassium Chloride Pwd/Soln) 40 meq DAILY PO Last administered on 07/14/18at 09:21; Admin Dose 40 MEQ; Start 07/10/18 at 14:00 Ertapenem 1 gm/ Sodium Chloride 100 ml @ 200 mls/hr Q24H IVPB Last admi nistered on 07/13/18at 17:47; Admin Dose 200 MLS/HR; Start 07/11/18 at 12:00 Assessment/Plan Hospital Course (Demo Recall) IMPRESSION 1. Acute on chronic hypoxemic and hypercapnic respiratory failure. 2. Possible aspiration pneumonia versus healthcare-associated pneumonia. 3. Mild volume overload. 4. History of paraplegia with prior tracheostomy. Plan 1. Continued antibiotics. 2. Pulmonary toilet. 3. Noninvasive positive pressure ventilation. 4. DVT and GI prophylaxis. Consider Duarte eval if not improving. Patient may benefit from percussion vest. RODRÍGUEZ SONG MD, [facility] Jul 14, 2018 11:38
--- NOTE | 2018-07-14 11:54 | CONS ---
Assessment/Plan Assessment/Plan Hospital Course (Demo Recall) No events, remains on Bipap, no fevers Sacral wound culture grew MRSA, Maricruz albicans and Corynebacterium species Antimicrobials: Vancomycin, Invanz Allergies: Sulfa Rocephin nitrofurantoin Indwelling: Suprapubic catheter, colostomy, peripheral IV Physical examination: Well-developed chronically ill-appearing middle-aged man who is awake in no distress. Head atraumatic normocephalic sclera nonicteric. Neck is supple. Chest rise symmetrical breath sounds diminished bases. Heart: S1-S2. Abdomen soft, bowel sounds present. Extremities wasted without cyanosis. Assessment: 1. Acute hypoxemic respiratory failure, possible aspiration versus healthcare associated pneumonia 2. E. coli UTI 3. Paraplegia 4. Neurogenic bladder 5. Diabetes 6. Chronic decubitus ulcers Plan: Remains stable, add Diflucan, continue antibiotics, follow pulmonary recommendations, may need tx to [facility] Consultation Date/Type/Reason Admit Date/Time Jul 06, 2018 at 04:04 Initial Consult Date Type of Consult id Date/Time of Note DATE: 07/14/18 TIME: 11:52 Exam/Review of Systems Exam Vitals Vital Signs Date Temp Pulse Resp B/P (MAP) Pulse Ox O2 O2 Flow FiO2 Time Delivery Rate 07/14/18 89 18 96 Nasal 3.0 08:10 Cannula 07/14/18 97.5 157/89 07:44 (111) 07/14/18 40 05:31 Intake and Output 07/13/18 07/13/18 07/14/18 1515:00 23:00 07:00 IntakeIntake Total 220 ml 320 ml 120 ml OutputOutput Total 750 ml 550 ml 650 ml BalanceBalance -530 ml -230 ml -530 ml Results Result Diagram: 07/14/18 0554 07/14/18 0554 Results 24hrs Laboratory Tests Test 07/13/18 12:33 07/13/18 17:35 07/13/18 17:45 07/13/18 22:33 Bedside Glucose 126 98 125 Vancomycin Level Trough 16.3 Test 07/14/18 05:54 07/14/18 09:19 White Blood Count 7.3 # Red Blood Count 3.52 L Hemoglobin 10.8 L Hematocrit 34.3 L Mean Corpuscular Volume 97.4 Mean Corpuscular 30.7 Hemoglobin Mean Corpuscular 31.5 L Hemoglobin Concent Red Cell Distribution 14.6 H Width Platelet Count 171 Mean Platelet Volume 10.0 Immature Granulocytes % 1.200 H Neutrophils % 76.5 Lymphocytes % 11.1 L Monocytes % 10.5 Eosinophils % 0.3 Basophils % 0.4 Nucleated Red Blood 0.0 Cells % Immature Granulocytes # 0.090 H Neutrophils # 5.6 Lymphocytes # 0.8 Monocytes # 0.8 Eosinophils # 0.0 Basophils # 0.0 Nucleated Red Blood 0.0 Cells # Sodium Level 141 Potassium Level 4.1 Chloride Level 97 Carbon Dioxide Level 31 Anion Gap 13 Blood Urea Nitrogen 13 Creatinine 0.46 L Est Glomerular Filtrat > 60 Rate mL/min Glucose Level 85 Calcium Level 9.0 Phosphorus Level 3.6 Magnesium Level 1.9 Bedside Glucose 170 Medications Medication Current Medications IV Flush (NS 3 ml) 3 ml PER PROTOCOL IV ; Start 07/06/18 at 05:00 Ondansetron HCl (Zofran Inj) 4 mg Q6H PRN IV NAUSEA/VOMITING; Start 07/06/18 at 05:00 Acetaminophen (Tylenol Tab) 650 mg Q6H PRN PO .PAIN 1-3 OR TEMP Last administered on 07/11/18 20:49; Admin Dose 650 MG; Start 07/06/18 at 05:00 Acetaminophen/ Hydrocodone Bitart ([place] (5/325)) 1 tab Q6H PRN PO .MOD PAIN 4- 6 Last administered on 07/12/18 18:30; Admin Dose 1 TAB; Start 07/06/18 at 05:00 Acetaminophen/ Hydrocodone Bitart ([place] (5/325)) 2 tab Q6H PRN PO .SEVERE PAIN 7-10; Start 07/06/18 at 05:00 Heparin Sodium (Porcine) (Heparin (5000 Units/1ml)) 5,000 unit Q12 SC Last administered on 07/14/18 09:44; Admin Dose 5,000 UNIT; Start 07/06/18 at 09:00 Ascorbic Acid (Vitamin C) 1,000 mg DAILY PO Last administered on 07/14/18 09:21; Admin Dose 1,000 MG; Start 07/06/18 at 09:00 Atorvastatin Calcium (Lipitor) 40 mg QHS PO Last administered on 07/13/18 22:35; Admin Dose 40 MG; Start 07/06/18 at 21:00 Baclofen (Lioresal) 20 mg TID PO Last administered on 07/14/18 09:21; Admin Dose 20 MG; Start 07/06/18 at 09:00 Fluticasone Propionate (Flonase 0.05% Nasal) 1 spray BID NASAL Last administered on 07/14/18 09:21; Admin Dose 1 SPRAY; Start 07/06/18 at 09:00 Hydroxyzine HCl (Atarax) 25 mg BID PRN PO ITCHING; Start 07/06/18 at 05:00 Naproxen (Naprosyn) 500 mg BID PRN PO PAIN; Start 07/06/18 at 05:00 Miscellaneous Information (Pending Santyl Order For Wound Care) This patient lopez... PRN PRN XX WOUND CARE; Start 07/06/18 at 11:00 Acetylcysteine (Mucomyst) 1 ml Q6H RESP THERAPY NEB Last administered on 07/14/18 08:10; Admin Dose 1 ML; Start 07/06/18 at 14:00 Collagenase (Santyl) 1 applic DAILY TOP Last administered on 07/14/18 09:21; Admin Dose 1 APPLIC; Start 07/08/18 at 09:00 Vancomycin HCl (Vanco Iv Per Pharmacy) VANCOMYCIN PER PHARMACY PER PROTOCOL XX ; Start 07/07/18 at 14:30 Albuterol (Proventil 0.083% (Neb)) 2.5 mg Q6H RESP THERAPY NEB Last administered on 07/14/18 08:10; Admin Dose 2.5 MG; Start 07/07/18 at 17:00 Albuterol (Ventolin Hfa) 2 puff Q6H RESP THERAPY INH Last administered on 07/10/18 13:40; Admin Dose 2 PUFF; Start 07/07/18 at 17:00; Status Hold Insulin Aspart (Novolog Insulin Pen) NOVOLOG *MODERATE* ALGORITHM WITH MEALS BEDTIME SC Last administered on 07/14/18 09:44; Admin Dose 2 UNIT; Start 07/07/18 at 18:05 Metformin HCl (Glucophage) 500 mg WITH LUNCH PO Last administered on 07/13/18 12:34; Admin Dose 500 MG; Start 07/09/18 at 11:50 Miscellaneous Information 1 ea NOTE XX ; Start 07/09/18 at 17:30 Glucose (Glutose) 15 gm Q15M PRN PO DECREASED GLUCOSE; Start 07/09/18 at 17:30 Glucose (Glutose) 22.5 gm Q15M PRN PO DECREASED GLUCOSE; Start 07/09/18 at 17:30 Dextrose (D50w Syringe) 25 ml Q15M PRN IV DECREASED GLUCOSE; Start 07/09/18 at 17:30 Dextrose (D50w Syringe) 50 ml Q15M PRN IV DECREASED GLUCOSE; Start 07/09/18 at 17:30 Glucagon (Glucagen) 1 mg Q15M PRN IM DECREASED GLUCOSE; Start 07/09/18 at 17:30 Glucose (Glutose) 15 gm Q15M PRN BUCCAL DECREASED GLUCOSE; Start 07/09/18 at 17:30 Vancomycin HCl 1.5 gm/Sodium Chloride 250 ml @ 83.333 mls/ hr Q24H IVPB Last administered on 07/13/18at 18:46; Admin Dose 83.333 MLS/HR; Start 07/10/18 at 18:00 Famotidine (Pepcid) 20 mg HS PO Last administered on 07/13/18at 22:35; Admin Dose 20 MG; Start 07/10/18 at 21:00 Guaifenesin/ Dextromethorphan (Robitussin Dm Liquid Cup) 10 ml Q4H PRN PO COUGH; Start 07/10/18 at 14:00 Potassium Chloride (Potassium Chloride Pwd/Soln) 40 meq DAILY PO Last administered on 07/14/18at 09:21; Admin Dose 40 MEQ; Start 07/10/18 at 14:00 Ertapenem 1 gm/ Sodium Chloride 100 ml @ 200 mls/hr Q24H IVPB Last administered on 07/13/18at 17:47; Admin Dose 200 MLS/HR; Start 07/11/18 at 12:00 Furosemide (Lasix) 40 mg DAILY IV ; Start 07/14/18 at 12:00 MALIKA FISHER NP Jul 14, 2018 11:54
[2018-07-14] MEDS: ERTAPENEM SODIUM 1 GM in SOD CHLORIDE 0.9% 100 ML IVPB SCH (12:00)
[2018-07-14] MEDS: metFORMIN 500 MG TAB PO SCH (13:43)
[2018-07-14] MEDS: FUROSEMIDE 40 MG INJ IV SCH (13:44)
[2018-07-14] MEDS: FLUCONAZOLE 100 MG TAB PO SCH (13:44)
[2018-07-14] MEDS: VANCOMYCIN HCL 1.5 GM in SOD CHLORIDE 0.9% 250 ML IVPB SCH (17:48)
[2018-07-14] MEDS: ATORVASTATIN 40 MG TAB PO SCH ×2 (21:00→21:12)
[2018-07-14] MEDS: FAMOTIDINE 20 MG TAB PO SCH (21:32)
[2018-07-15] VITALS (20 sets, daily range): BP systolic 94–164; BP diastolic 59–87; PULSE 74–132; RESP 17–20
[2018-07-15] MEDS: ACETYLCYSTEINE 20% 4 ML VIAL NEB SCH ×4 (02:45→19:29)
[2018-07-15] MEDS: ALBUTEROL 0.083% (NEB) 2.5 MG/3 ML AMP NEB SCH ×4 (02:45→19:29)
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
[2018-07-15] MEDS: INSULIN ASPART [NOVOLOG] 3 ML PEN SC SCH ×4 (08:00→21:00)
[2018-07-15] MEDS: COLLAGENASE 5 GM (UD JAR) TOP SCH (08:03)
[2018-07-15] MEDS: POTASSIUM CHLORIDE 20 MEQ POWDER FOR ORAL SOLN PO SCH (08:04)
[2018-07-15] MEDS: FUROSEMIDE 40 MG INJ IV SCH (08:04)
[2018-07-15] MEDS: BACLOFEN 10 MG TAB PO SCH ×3 (08:05→20:49)
[2018-07-15] MEDS: ASCORBIC ACID 500 MG TAB PO SCH (08:05)
[2018-07-15] MEDS: FLUCONAZOLE 100 MG TAB PO SCH (08:05)
[2018-07-15] MEDS: FLUTICASONE 0.05% 16 GM NAS SPRAY NASAL SCH ×2 (08:06→20:49)
[2018-07-15] MEDS: HEPARIN 5,000 UNIT/1 ML VIAL SC SCH ×2 (08:17→21:01)
--- NOTE | 2018-07-15 08:17 | RADRPT ---
Echocardiogram Report Patient Name: ERLIN COUCHPatient ID: [id number] : 1960 (57y 11m)Study Date: 07/13/2018 2:07:12 PM Gender: Bartoloion #: [id number] Tech: AA Location: [facility] Ref.Physician: KAYCEE CHRISTIE Height(Cm): BSA: Weight(Kg): Quality: Technically Difficult StudyAccount #: Procedures: Echocardiographic Report: Transthoracic echocardiogram with complete 2D, M-Mode, and doppler examination. Indications: Evaluate Left Ventricular function. Measurements: 2D/M Mode Doppler Measurement Value Normal Range Measurement Value Normal Range LVIDd 2D 4.7 [ 4.2 - 5.8 ] cm AV Mean Malik 0.8 [ 70.0 - 90.0 ] cm/sec LVIDs 2D 3.0 [ 2.5 - 4.0 ] cm AV Mean PG 4.0 [ 2.0 - 4.0 ] mmHg LVPWd 2D 1.2 [ 0.6 - 1.0 ] cm AV VTI 20.0 cm IVSd 2D 1.4 [ 0.6 - 1.0 ] cm LVOT Mean Malik 0.6 [ 60.0 - 80.0 ] cm/sec EDV 2D 104.0 [ 62.0 - 150.0 ] ml LVOT Mean PG 2.0 [ 1.0 - 3.0 ] mmHg ESV 2D 35.6 [ 21.0 - 61.0 ] ml LVOT Peak Malik 1.0 [ 70.0 - 110.0 ] cm/sec EF 2D 65.8 [ 52.0 - 72.0 ] percent LVOT Peak PG 4.0 [ 2.0 - 6.0 ] mmHg LVOT VTI 14.2 [ 20.0 - 30.0 ] cm MV E Peak Malik 0.9 [ 60.0 - 130.0 ] cm/sec MV A Peak Malik 1.2 [ 100.0 - 120.0 ] cm/sec MV E/A 0.7 [ 0.8 - 1.5 ] ratio MV Decel Time 158 [ 104 - 258 ] msec Lat E` Malik 0.1 [ 10.0 - 15.0 ] cm/sec Lateral E/E` 8.3 [ 1.0 - 2.0 ] ratio MV E/A 0.7 [ 0.8 - 1.5 ] ratio RA Pressure 10.0 mmHg Findings: Left Ventricle: Normal left ventricular cavity size. Paradoxical septal motion consistent with IVCD or bundle branch block. Ejection fraction is visually estimated at 55 %. Right Ventricle: Normal right ventricular size. Normal right ventricular systolic function. Left Atrium: The left atrium is normal in size. Right Atrium: The right atrium is normal in size. Mitral Valve: Normal appearance and function of the mitral valve with trace physiologic regurgitation. Aortic Valve: No significant aortic stenosis or insufficiency. Aortic cusps appear mildly calcified. Tricuspid Valve: Normal appearance of the tricuspid valve. Unable to obtain RVSP due to minimal presence of tricuspid regurgitation. Pericardium: Trivial pericardial effusion. Aorta: Normal aortic root. IVC: Dilated IVC with respiratory collapse, however, patient on ventilator. Conclusions: Normal left ventricular cavity size. Paradoxical septal motion consistent with IVCD or bundle branch block. Ejection fraction is visually estimated at 55 %. Normal appearance and function of the mitral valve with trace physiologic regurgitation. No significant aortic stenosis or insufficiency. Aortic cusps appear mildly calcified. Normal appearance of the tricuspid valve. Unable to obtain RVSP due to minimal presence of tricuspid regurgitation. Trivial pericardial effusion. Electronically Signed By: Jose De Jesus Phelan 2018-07-15 08:16:47 PDT
--- NOTE | 2018-07-15 10:54 | CONS ---
Consult Date/Type/Reason Admit Date/Time Jul 06, 2018 at 04:04 Initial Consult Date Type of Consult Pulmonary Date/Time of Note DATE: 07/15/18 TIME: 10:53 Subjective Patient stable this morning. Still with a few secretions. Objective Vital Signs Date Temp Pulse Resp B/P (MAP) Pulse Ox O2 O2 Flow FiO2 Time Delivery Rate 07/15/18 93 3.0 08:43 07/15/18 80 18 Nasal 08:43 Cannula 07/15/18 97.3 164/87 07:30 (112) 07/15/18 40 05:46 Intake and Output 07/14/18 07/14/18 07/15/18 1515:00 23:00 07:00 IntakeIntake Total 1570 ml 120 ml OutputOutput Total 2200 ml 800 ml BalanceBalance -630 ml -680 ml Exam PHYSICAL EXAMINATION: GENERAL: Well-nourished, well-developed gentleman, appears comfortable at rest, in no acute distress. VITAL SIGNS: As above NECK: Trach site has healed. CARDIAC: S1, S2. Tachycardia. CHEST: Diminished air entry bilaterally. bilateral rales. ABDOMEN: Soft, nontender. No guarding or rebound. EXTREMITIES: No cyanosis, clubbing. A 2+ edema. NEUROLOGIC: With contractures. Vent Setting Fraction of Inspired Oxygen pe: 40 Results/Medications Result Diagram: 07/15/18 0542 07/15/18 0542 Results 24 hrs Laboratory Tests Test 07/14/18 12:39 07/14/18 17:50 07/14/18 21:14 07/15/18 05:42 Bedside Glucose 182 109 128 White Blood Count 6.9 Red Blood Count 3.63 L Hemoglobin 10.9 L Hematocrit 34.3 L Mean Corpuscular Volume 94.5 Mean Corpuscular 30.0 Hemoglobin Mean Corpuscular 31.8 L Hemoglobin Concent Red Cell Distribution 14.7 H Width Platelet Count 200 Mean Platelet Volume 9.9 Immature Granulocytes % 1.600 H Neutrophils % 84.6 H Lymphocytes % 6.5 L Monocytes % 6.4 Eosinophils % 0.6 Basophils % 0.3 Nucleated Red Blood 0.0 Cells % Immature Granulocytes # 0.110 H Neutrophils # 5.9 Lymphocytes # 0.5 L Monocytes # 0.4 Eosinophils # 0.0 Basophils # 0.0 Nucleated Red Blood 0.0 Cells # Sodium Level 139 Potassium Level 3.8 Chloride Level 95 L Carbon Dioxide Level 34 H Anion Gap 10 Blood Urea Nitrogen 12 Creatinine 0.48 L Est Glomerular Filtrat > 60 Rate mL/min Glucose Level 111 Calcium Level 9.1 Phosphorus Level 3.4 Magnesium Level 1.6 L Test 07/15/18 07:53 Bedside Glucose 112 Medications Current Medications IV Flush (NS 3 ml) 3 ml PER PROTOCOL IV ; Start 07/06/18 at 05:00 Ondansetron HCl (Zofran Inj) 4 mg Q6H PRN IV NAUSEA/VOMITING; Start 07/06/18 at 05:00 Acetaminophen (Tylenol Tab) 650 mg Q6H PRN PO .PAIN 1-3 OR TEMP Last admi nistered on 07/11/18 20:49; Admin Dose 650 MG; Start 07/06/18 at 05:00 Acetaminophen/ Hydrocodone Bitart ([place] (5/325)) 1 tab Q6H PRN PO .MOD PAIN 4- 6 Last administered on 07/12/18 18:30; Admin Dose 1 TAB; Start 07/06/18 at 05:00 Acetaminophen/ Hydrocodone Bitart ([place] (5/325)) 2 tab Q6H PRN PO .SEVERE PAIN 7-10; Start 07/06/18 at 05:00 Heparin Sodium (Porcine) (Heparin (5000 Units/1ml)) 5,000 unit Q12 SC Last administered on 07/15/18 08:17; Admin Dose 5,000 UNIT; Start 07/06/18 at 09:00 Ascorbic Acid (Vitamin C) 1,000 mg DAILY PO Last administered on 07/15/18 08:05; Admin Dose 1,000 MG; Start 07/06/18 at 09:00 Atorvastatin Calcium (Lipitor) 40 mg QHS PO Last administered on 07/13/18 22:35; Admin Dose 40 MG; Start 07/06/18 at 21:00 Baclofen (Lioresal) 20 mg TID PO Last administered on 07/15/18 08:05; Admin Dose 20 MG; Start 07/06/18 at 09:00 Fluticasone Propionate (Flonase 0.05% Nasal) 1 spray BID NASAL Last administered on 07/15/18 08:06; Admin Dose 1 SPRAY; Start 07/06/18 at 09:00 Hydroxyzine HCl (Atarax) 25 mg BID PRN PO ITCHING; Start 07/06/18 at 05:00 Naproxen (Naprosyn) 500 mg BID PRN PO PAIN; Start 07/06/18 at 05:00 Miscellaneous Information (Pending Santyl Order For Wound Care) This patient lopez... PRN PRN XX WOUND CARE; Start 07/06/18 at 11:00 Acetylcysteine (Mucomyst) 1 ml Q6H RESP THERAPY NEB Last administered on 07/15/18 08:43; Admin Dose 1 ML; Start 07/06/18 at 14:00 Collagenase (Santyl) 1 applic DAILY TOP Last administered on 07/15/18 08:03; Admin Dose 1 APPLIC; Start 07/08/18 at 09:00 Vancomycin HCl (Vanco Iv Per Pharmacy) VANCOMYCIN PER PHARMACY PER PROTOCOL XX ; Start 07/07/18 at 14:30 Albuterol (Proventil 0.083% (Neb)) 2.5 mg Q6H RESP THERAPY NEB Last administered on 07/15/18 08:43; Admin Dose 2.5 MG; Start 07/07/18 at 17:00 Albuterol (Ventolin Hfa) 2 puff Q6H RESP THERAPY INH Last administered on 07/10/18 13:40; Admin Dose 2 PUFF; Start 07/07/18 at 17:00; Status Hold Insulin Aspart (Novolog Insulin Pen) NOVOLOG *MODERATE* ALGORITHM WITH MEALS BEDTIME SC Last administered on 07/14/18 14:06; Admin Dose 4 UNIT; Start 07/07/18 at 18:05 Metformin HCl (Glucophage) 500 mg WITH LUNCH PO Last administered on 07/14/18 13:43; Admin Dose 500 MG; Start 07/09/18 at 11:50 Miscellaneous Information 1 ea NOTE XX ; Start 07/09/18 at 17:30 Glucose (Glutose) 15 gm Q15M PRN PO DECREASED GLUCOSE; Start 07/09/18 at 17:30 Glucose (Glutose) 22.5 gm Q15M PRN PO DECREASED GLUCOSE; Start 07/09/18 at 17:30 Dextrose (D50w Syringe) 25 ml Q15M PRN IV DECREASED GLUCOSE; Start 07/09/18 at 17:30 Dextrose (D50w Syringe) 50 ml Q15M PRN IV DECREASED GLUCOSE; Start 07/09/18 at 17:30 Glucagon (Glucagen) 1 mg Q15M PRN IM DECREASED GLUCOSE; Start 07/09/18 at 17:30 Glucose (Glutose) 15 gm Q15M PRN BUCCAL DECREASED GLUCOSE; Start 07/09/18 at 17 :30 Vancomycin HCl 1.5 gm/Sodium Chloride 250 ml @ 83.333 mls/ hr Q24H IVPB Last administered on 07/14/18at 17:48; Admin Dose 83.333 MLS/HR; Start 07/10/18 at 18:00 Famotidine (Pepcid) 20 mg HS PO Last administered on 07/14/18at 21:32; Admin Dose 20 MG; Start 07/10/18 at 21:00 Guaifenesin/ Dextromethorphan (Robitussin Dm Liquid Cup) 10 ml Q4H PRN PO COUGH; Start 07/10/18 at 14:00 Potassium Chloride (Potassium Chloride Pwd/Soln) 40 meq DAILY PO Last administered on 07/15/18 08:04; Admin Dose 40 MEQ; Start 07/10/18 at 14:00 Ertapenem 1 gm/ Sodium Chloride 100 ml @ 200 mls/hr Q24H IVPB Last ad ministered on 07/14/18at 12:00; Admin Dose 200 MLS/HR; Start 07/11/18 at 12:00 Furosemide (Lasix) 40 mg DAILY IV Last administered on 07/15/18 08:04; Admin Dose 40 MG; Start 07/14/18 at 12:00 Fluconazole (Diflucan) 100 mg DAILY PO Last administered on 07/15/18 08:05; Admin Dose 100 MG; Start 07/14/18 at 12:00 Assessment/Plan Hospital Course (Demo Recall) IMPRESSION 1. Acute on chronic hypoxemic and hypercapnic respiratory failure. 2. Possible aspiration pneumonia versus healthcare-associated pneumonia. 3. Mild volume overload. 4. History of paraplegia with prior tracheostomy. Plan 1. Continued antibiotics. 2. Pulmonary toilet. 3. Noninvasive positive pressure ventilation. 4. DVT and GI prophylaxis. dc planing. ? RODRÍGUEZ SONG MD, [facility] Jul 15, 2018 10:54
[2018-07-15] MEDS: metFORMIN 500 MG TAB PO SCH (12:01)
[2018-07-15] MEDS: ERTAPENEM SODIUM 1 GM in SOD CHLORIDE 0.9% 100 ML IVPB SCH (12:03)
--- NOTE | 2018-07-15 13:13 | CONS ---
Assessment/Plan Assessment/Plan Hospital Course (Demo Recall) No events, looks comfortable no fevers Sacral wound culture grew MRSA, Maricruz albicans and Corynebacterium species Antimicrobials: Vancomycin, Invanz Diflucan Allergies: Sulfa Rocephin nitrofurantoin Indwelling: Suprapubic catheter, colostomy, peripheral IV Physical examination: Well-developed chronically ill-appearing middle-aged man who is awake in no distress. Head atraumatic normocephalic sclera nonicteric. Neck is supple. Chest rise symmetrical breath sounds diminished bases. Heart: S1-S2. Abdomen soft, bowel sounds present. Extremities wasted without cyanosis. Assessment: 1. Acute hypoxemic respiratory failure, possible aspiration versus healthcare associated pneumonia 2. E. coli UTI 3. Paraplegia 4. Neurogenic bladder 5. Diabetes 6. Chronic decubitus ulcers Plan: Remains stable, continue antibiotics for couple more days, follow pulmonary recommendations Consultation Date/Type/Reason Admit Date/Time Jul 06, 2018 at 04:04 Initial Consult Date Type of Consult id Date/Time of Note DATE: 07/15/18 TIME: 13:12 Exam/Review of Systems Exam Vitals Vital Signs Date Temp Pulse Resp B/P (MAP) Pulse Ox O2 O2 Flow FiO2 Time Delivery Rate 07/15/18 83 12:30 07/15/18 94 40 12:23 07/15/18 98.2 20 137/79 11:14 (98) 07/15/18 3.0 08:43 07/15/18 Nasal 08:43 Cannula Intake and Output 07/14/18 07/14/18 07/15/18 1414:59 22:59 06:59 IntakeIntake Total 1570 ml 120 ml OutputOutput Total 2200 ml 800 ml BalanceBalance -630 ml -680 ml Results Result Diagram: 07/15/18 0542 07/15/18 0542 Results 24hrs Laboratory Tests Test 07/14/18 17:50 07/14/18 21:14 07/15/18 05:42 07/15/18 07:53 Bedside Glucose 109 128 112 White Blood Count 6.9 Red Blood Count 3.63 L Hemoglobin 10.9 L Hematocrit 34.3 L Mean Corpuscular Volume 94.5 Mean Corpuscular 30.0 Hemoglobin Mean Corpuscular 31.8 L Hemoglobin Concent Red Cell Distribution 14.7 H Width Platelet Count 200 Mean Platelet Volume 9.9 Immature Granulocytes % 1.600 H Neutrophils % 84.6 H Lymphocytes % 6.5 L Monocytes % 6.4 Eosinophils % 0.6 Basophils % 0.3 Nucleated Red Blood 0.0 Cells % Immature Granulocytes # 0.110 H Neutrophils # 5.9 Lymphocytes # 0.5 L Monocytes # 0.4 Eosinophils # 0.0 Basophils # 0.0 Nucleated Red Blood 0.0 Cells # Sodium Level 139 Potassium Level 3.8 Chloride Level 95 L Carbon Dioxide Level 34 H Anion Gap 10 Blood Urea Nitrogen 12 Creatinine 0.48 L Est Glomerular Filtrat > 60 Rate mL/min Glucose Level 111 Calcium Level 9.1 Phosphorus Level 3.4 Magnesium Level 1.6 L Test 07/15/18 11:56 Bedside Glucose 113 Medications Medication Current Medications IV Flush (NS 3 ml) 3 ml PER PROTOCOL IV ; Start 07/06/18 at 05:00 Ondansetron HCl (Zofran Inj) 4 mg Q6H PRN IV NAUSEA/VOMITING; Start 07/06/18 at 05:00 Acetaminophen (Tylenol Tab) 650 mg Q6H PRN PO .PAIN 1-3 OR TEMP Last administered on 07/11/18 20:49; Admin Dose 650 MG; Start 07/06/18 at 05:00 Acetaminophen/ Hydrocodone Bitart ([place] (5/325)) 1 tab Q6H PRN PO .MOD PAIN 4- 6 Last administered on 07/12/18 18:30; Admin Dose 1 TAB; Start 07/06/18 at 05:00 Acetaminophen/ Hydrocodone Bitart ([place] (5/325)) 2 tab Q6H PRN PO .SEVERE PAIN 7-10; Start 07/06/18 at 05:00 Heparin Sodium (Porcine) (Heparin (5000 Units/1ml)) 5,000 unit Q12 SC Last administered on 07/15/18 08:17; Admin Dose 5,000 UNIT; Start 07/06/18 at 09:00 Ascorbic Acid (Vitamin C) 1,000 mg DAILY PO Last administered on 07/15/18 08:05; Admin Dose 1,000 MG; Start 07/06/18 at 09:00 Atorvastatin Calcium (Lipitor) 40 mg QHS PO Last administered on 07/13/18 22:35; Admin Dose 40 MG; Start 07/06/18 at 21:00 Baclofen (Lioresal) 20 mg TID PO Last administered on 07/15/18 12:01; Admin Dose 20 MG; Start 07/06/18 at 09:00 Fluticasone Propionate (Flonase 0.05% Nasal) 1 spray BID NASAL Last administered on 07/15/18 08:06; Admin Dose 1 SPRAY; Start 07/06/18 at 09:00 Hydroxyzine HCl (Atarax) 25 mg BID PRN PO ITCHING; Start 07/06/18 at 05:00 Naproxen (Naprosyn) 500 mg BID PRN PO PAIN; Start 07/06/18 at 05:00 Miscellaneous Information (Pending Santyl Order For Wound Care) This patient lopez... PRN PRN XX WOUND CARE; Start 07/06/18 at 11:00 Acetylcysteine (Mucomyst) 1 ml Q6H RESP THERAPY NEB Last administered on 07/15/18 13:05; Admin Dose 1 ML; Start 07/06/18 at 14:00 Collagenase (Santyl) 1 applic DAILY TOP Last administered on 07/15/18 08:03; Admin Dose 1 APPLIC; Start 07/08/18 at 09:00 Vancomycin HCl (Vanco Iv Per Pharmacy) VANCOMYCIN PER PHARMACY PER PROTOCOL XX ; Start 07/07/18 at 14:30 Albuterol (Proventil 0.083% (Neb)) 2.5 mg Q6H RESP THERAPY NEB Last administered on 07/15/18 13:05; Admin Dose 2.5 MG; Start 07/07/18 at 17:00 Albuterol (Ventolin Hfa) 2 puff Q6H RESP THERAPY INH Last administered on 07/10/18 13:40; Admin Dose 2 PUFF; Start 07/07/18 at 17:00; Status Hold Insulin Aspart (Novolog Insulin Pen) NOVOLOG *MODERATE* ALGORITHM WITH MEALS BEDTIME SC Last administered on 07/14/18 14:06; Admin Dose 4 UNIT; Start 07/07/18 at 18:05 Metformin HCl (Glucophage) 500 mg WITH LUNCH PO Last administered on 07/15/18 12:01; Admin Dose 500 MG; Start 07/09/18 at 11:50 Miscellaneous Information 1 ea NOTE XX ; Start 07/09/18 at 17:30 Glucose (Glutose) 15 gm Q15M PRN PO DECREASED GLUCOSE; Start 07/09/18 at 17:30 Glucose (Glutose) 22.5 gm Q15M PRN PO DECREASED GLUCOSE; Start 07/09/18 at 17:30 Dextrose (D50w Syringe) 25 ml Q15M PRN IV DECREASED GLUCOSE; Start 07/09/18 at 17:30 Dextrose (D50w Syringe) 50 ml Q15M PRN IV DECREASED GLUCOSE; Start 07/09/18 at 17:30 Glucagon (Glucagen) 1 mg Q15M PRN IM DECREASED GLUCOSE; Start 07/09/18 at 17:30 Glucose (Glutose) 15 gm Q15M PRN BUCCAL DECREASED GLUCOSE; Start 07/09/18 at 17:30 Vancomycin HCl 1.5 gm/Sodium Chloride 250 ml @ 83.333 mls/ hr Q24H IVPB Last administered on 07/14/18 17:48; Admin Dose 83.333 MLS/HR; Start 07/10/18 at 18:00 Famotidine (Pepcid) 20 mg HS PO Last administered on 07/14/18at 21:32; Admin Dose 20 MG; Start 07/10/18 at 21:00 Guaifenesin/ Dextromethorphan (Robitussin Dm Liquid Cup) 10 ml Q4H PRN PO COUGH; Start 07/10/18 at 14:00 Potassium Chloride (Potassium Chloride Pwd/Soln) 40 meq DAILY PO Last administered on 07/15/18 08:04; Admin Dose 40 MEQ; Start 07/10/18 at 14:00 Ertapenem 1 gm/ Sodium Chloride 100 ml @ 200 mls/hr Q24H IVPB Last administered on 07/15/18at 12:03; Admin Dose 200 MLS/HR; Start 07/11/18 at 12:00 Furosemide (Lasix) 40 mg DAILY IV Last administered on 07/15/18 08:04; Admin Dose 40 MG; Start 07/14/18 at 12:00 Fluconazole (Diflucan) 100 mg DAILY PO Last administered on 07/15/18 08:05; Admin Dose 100 MG; Start 07/14/18 at 12:00 MALIKA FISHER NP Jul 15, 2018 13:13
[2018-07-15] MEDS: VANCOMYCIN HCL 1.5 GM in SOD CHLORIDE 0.9% 250 ML IVPB SCH (17:14)
[2018-07-15] MEDS: FAMOTIDINE 20 MG TAB PO SCH (20:49)
[2018-07-15] MEDS: ATORVASTATIN 40 MG TAB PO SCH (20:49)
[2018-07-16] VITALS (17 sets, daily range): BP systolic 88–145; BP diastolic 59–75; PULSE 71–97; RESP 18–20
[2018-07-16] MEDS: ACETYLCYSTEINE 20% 4 ML VIAL NEB SCH ×4 (02:04→20:04)
[2018-07-16] MEDS: ALBUTEROL 0.083% (NEB) 2.5 MG/3 ML AMP NEB SCH ×4 (02:04→20:04)
[2018-07-16] MEDS: INSULIN ASPART [NOVOLOG] 3 ML PEN SC SCH ×4 (07:35→21:00)
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
[2018-07-16] MEDS: POTASSIUM CHLORIDE 20 MEQ POWDER FOR ORAL SOLN PO SCH (07:53)
[2018-07-16] MEDS: FLUCONAZOLE 100 MG TAB PO SCH (07:53)
[2018-07-16] MEDS: FUROSEMIDE 40 MG INJ IV SCH (07:54)
[2018-07-16] MEDS: COLLAGENASE 5 GM (UD JAR) TOP SCH (07:54)
[2018-07-16] MEDS: BACLOFEN 10 MG TAB PO SCH ×3 (07:54→20:57)
[2018-07-16] MEDS: ASCORBIC ACID 500 MG TAB PO SCH (07:54)
[2018-07-16] MEDS: FLUTICASONE 0.05% 16 GM NAS SPRAY NASAL SCH ×2 (07:55→21:00)
[2018-07-16] MEDS: HEPARIN 5,000 UNIT/1 ML VIAL SC SCH ×2 (08:05→21:18)
[2018-07-16] MEDS: ERTAPENEM SODIUM 1 GM in SOD CHLORIDE 0.9% 100 ML IVPB SCH (11:54)
[2018-07-16] MEDS: metFORMIN 500 MG TAB PO SCH (11:54)
--- NOTE | 2018-07-16 12:58 | CONS ---
Consult Date/Type/Reason Admit Date/Time Jul 06, 2018 at 04:04 Initial Consult Date Type of Consult Pulmonary Date/Time of Note DATE: 07/16/18 TIME: 12:57 Subjective Patient appears comfortable this morning no respiratory distress. Objective Vital Signs Date Temp Pulse Resp B/P (MAP) Pulse Ox O2 O2 Flow FiO2 Time Delivery Rate 07/16/18 90 12:00 07/16/18 97.8 19 145/73 94 11:37 (97) 07/16/18 3.0 09:36 07/16/18 Nasal 09:36 Cannula 07/16/18 45 06:00 Intake and Output 07/15/18 07/15/18 07/16/18 1414:59 22:59 06:59 IntakeIntake Total 100 ml 1000 ml 100 ml OutputOutput Total 2050 ml 200 ml BalanceBalance 100 ml -1050 ml -100 ml Exam PHYSICAL EXAMINATION: GENERAL: Well-nourished, well-developed gentleman, appears comfortable at rest, in no acute distress. VITAL SIGNS: As above NECK: Trach site has healed. CARDIAC: S1, S2. Tachycardia. CHEST: Diminished air entry bilaterally. bilateral rales. ABDOMEN: Soft, nontender. No guarding or rebound. EXTREMITIES: No cyanosis, clubbing. A 2+ edema. NEUROLOGIC: With contractures. Vent Setting Fraction of Inspired Oxygen pe: 40 Results/Medications Result Diagram: 07/16/18 0506 07/16/18 0506 Results 24 hrs Laboratory Tests Test 07/15/18 17:12 07/15/18 21:32 07/16/18 05:04 07/16/18 05:06 Bedside Glucose 126 110 Phosphorus Level 4.6 Magnesium Level 1.6 L White Blood Count 5.7 Red Blood Count 3.47 L Hemoglobin 10.6 L Hematocrit 33.6 L Mean Corpuscular Volume 96.8 Mean Corpuscular 30.5 Hemoglobin Mean Corpuscular 31.5 L Hemoglobin Concent Red Cell Distribution 15.2 H Width Platelet Count 196 Mean Platelet Volume 10.1 Immature Granulocytes % 1.400 H Neutrophils % 81.5 H Lymphocytes % 10.2 L Monocytes % 6.2 Eosinophils % 0.2 Basophils % 0.5 Nucleated Red Blood 0.0 Cells % Immature Granulocytes # 0.080 H Neutrophils # 4.6 Lymphocytes # 0.6 L Monocytes # 0.4 Eosinophils # 0.0 Basophils # 0.0 Nucleated Red Blood 0.0 Cells # Sodium Level 138 Potassium Level 4.2 Chloride Level 94 L Carbon Dioxide Level 33 H Anion Gap 11 Blood Urea Nitrogen 21 H Creatinine 0.59 L Est Glomerular Filtrat > 60 Rate mL/min Glucose Level 95 Calcium Level 8.9 Test 07/16/18 07:30 07/16/18 11:52 Bedside Glucose 108 255 H Medications Current Medications IV Flush (NS 3 ml) 3 ml PER PROTOCOL IV ; Start 07/06/18 at 05:00 Ondansetron HCl (Zofran Inj) 4 mg Q6H PRN IV NAUSEA/VOMITING; Start 07/06/18 at 05:00 Acetaminophen (Tylenol Tab) 650 mg Q6H PRN PO .PAIN 1-3 OR TEMP Last administered on 07/11/18 20:49; Admin Dose 650 MG; Start 07/06/18 at 05:00 Acetaminophen/ Hydrocodone Bitart ([place] (5/325)) 1 tab Q6H PRN PO .MOD PAIN 4- 6 Last administered on 07/12/18 18:30; Admin Dose 1 TAB; Start 07/06/18 at 05:00 Acetaminophen/ Hydrocodone Bitart ([place] (5/325)) 2 tab Q6H PRN PO .SEVERE PAIN 7-10; Start 07/06/18 at 05:00 Heparin Sodium (Porcine) (Heparin (5000 Units/1ml)) 5,000 unit Q12 SC Last administered on 07/16/18 08:05; Admin Dose 5,000 UNIT; Start 07/06/18 at 09:00 Ascorbic Acid (Vitamin C) 1,000 mg DAILY PO Last administered on 07/16/18 07:54; Admin Dose 1,000 MG; Start 07/06/18 at 09:00 Atorvastatin Calcium (Lipitor) 40 mg QHS PO Last administered on 07/15/18 20:49; Admin Dose 40 MG; Start 07/06/18 at 21:00 Baclofen (Lioresal) 20 mg TID PO Last administered on 07/16/18 12:03; Admin Dose 20 MG; Start 07/06/18 at 09:00 Fluticasone Propionate (Flonase 0.05% Nasal) 1 spray BID NASAL Last administer ed on 07/16/18 07:55; Admin Dose 1 SPRAY; Start 07/06/18 at 09:00 Hydroxyzine HCl (Atarax) 25 mg BID PRN PO ITCHING; Start 07/06/18 at 05:00 Naproxen (Naprosyn) 500 mg BID PRN PO PAIN; Start 07/06/18 at 05:00 Miscellaneous Information (Pending Santyl Order For Wound Care) This patient lopez... PRN PRN XX WOUND CARE; Start 07/06/18 at 11:00 Acetylcysteine (Mucomyst) 1 ml Q6H RESP THERAPY NEB Last administered on 07/16/18 09:34; Admin Dose 1 ML; Start 07/06/18 at 14:00 Collagenase (Santyl) 1 applic DAILY TOP Last administered on 07/16/18 07:54; Admin Dose 1 APPLIC; Start 07/08/18 at 09:00 Vancomycin HCl (Vanco Iv Per Pharmacy) VANCOMYCIN PER PHARMACY PER PROTOCOL XX ; Start 07/07/18 at 14:30 Albuterol (Proventil 0.083% (Neb)) 2.5 mg Q6H RESP THERAPY NEB Last administered on 07/16/18 09:34; Admin Dose 2.5 MG; Start 07/07/18 at 17:00 Albuterol (Ventolin Hfa) 2 puff Q6H RESP THERAPY INH Last administered on 07/10/18 13:40; Admin Dose 2 PUFF; Start 07/07/18 at 17:00; Status Hold Insulin Aspart (Novolog Insulin Pen) NOVOLOG *MODERATE* ALGORITHM WITH MEALS BEDTIME SC Last administered on 07/16/18 12:07; Admin Dose 6 UNIT; Start 07/07/18 at 18:05 Metformin HCl (Glucophage) 500 mg WITH LUNCH PO Last administered on 07/16/18 11:54; Admin Dose 500 MG; Start 07/09/18 at 11:50 Miscellaneous Information 1 ea NOTE XX ; Start 07/09/18 at 17:30 Glucose (Glutose) 15 gm Q15M PRN PO DECREASED GLUCOSE; Start 07/09/18 at 17:30 Glucose (Glutose) 22.5 gm Q15M PRN PO DECREASED GLUCOSE; Start 07/09/18 at 17:30 Dextrose (D50w Syringe) 25 ml Q15M PRN IV DECREASED GLUCOSE; Start 07/09/18 at 17:30 Dextrose (D50w Syringe) 50 ml Q15M PRN IV DECREASED GLUCOSE; Start 07/09/18 at 17:30 Glucagon (Glucagen) 1 mg Q15M PRN IM DECREASED GLUCOSE; Start 07/09/18 at 17:30 Glucose (Glutose) 15 gm Q15M PRN BUCCAL DECREASED GLUCOSE; Start 07/09/18 at 17:30 Vancomycin HCl 1.5 gm/Sodium Chloride 250 ml @ 83.333 mls/ hr Q24H IVPB Last administered on 07/15/18at 17:14; Admin Dose 83.333 MLS/HR; Start 07/10/18 at 18:00 Famotidine (Pepcid) 20 mg HS PO Last administered on 07/15/18at 20:49; Admin Dose 20 MG; Start 07/10/18 at 21:00 Guaifenesin/ Dextromethorphan (Robitussin Dm Liquid Cup) 10 ml Q4H PRN PO COUGH; Start 07/10/18 at 14:00 Potassium Chloride (Potassium Chloride Pwd/Soln) 40 meq DAILY PO Last administered on 07/16/18 07:53; Admin Dose 40 MEQ; Start 07/10/18 at 14:00 Ertapenem 1 gm/ Sodium Chloride 100 ml @ 200 mls/hr Q24H IVPB Last administered on 07/16/18at 11:54; Admin Dose 200 MLS/HR; Start 07/11/18 at 12:00 Furosemide (Lasix) 40 mg DAILY IV Last administered on 07/16/18 07:54; Admin Dose 40 MG; Start 07/14/18 at 12:00 Fluconazole (Diflucan) 100 mg DAILY PO Last administered on 07/16/18 07:53; Admin Dose 100 MG; Start 07/14/18 at 12:00 Miscellaneous Information (*Rx Drug Level Order Reminder*) VANCO TROUGH @ 1,700 ON... 1700 ONCE XX ; Start 07/17/18 at 17:00; Stop 07/17/18 at 17:01 Assessment/Plan Hospital Course (Demo Recall) IMPRESSION 1. Acute on chronic hypoxemic and hypercapnic respiratory failure. 2. Possible aspiration pneumonia versus healthcare-associated pneumonia. 3. Mild volume overload. 4. History of paraplegia with prior tracheostomy. Plan 1. Continued antibiotics. 2. Pulmonary toilet. 3. Noninvasive positive pressure ventilation. 4. DVT and GI prophylaxis. dc planning Okay from pulmonary standpoint. RODRÍGUEZ SONG MD, [facility] Jul 16, 2018 12:58
[2018-07-16] MEDS: BALSAM PERU/CASTOR OIL 60 GM TUBE TOP SCH ×2 (15:02→21:12)
--- NOTE | 2018-07-16 15:16 | CONS ---
Assessment/Plan Assessment/Plan Hospital Course (Demo Recall) Alert, comfortable on nc, no fevers Sacral wound culture grew MRSA, Maricruz albicans and Corynebacterium species Antimicrobials: Vancomycin, Invanz Diflucan Allergies: Sulfa Rocephin nitrofurantoin Indwelling: Suprapubic catheter, colostomy, peripheral IV Physical examination: Well-developed chronically ill-appearing middle-aged man who is awake in no distress. Head atraumatic normocephalic sclera nonicteric. Neck is supple. Chest rise symmetrical breath sounds diminished bases. Heart: S1-S2. Abdomen soft, bowel sounds present. Extremities wasted without cyanosis. Assessment: 1. Acute hypoxemic respiratory failure, possible aspiration versus healthcare associated pneumonia 2. E. coli UTI 3. Paraplegia 4. Neurogenic bladder 5. Diabetes 6. Chronic decubitus ulcers Plan: Stable, completing abx Consultation Date/Type/Reason Admit Date/Time Jul 06, 2018 at 04:04 Initial Consult Date Type of Consult id Date/Time of Note DATE: 07/16/18 TIME: 15:15 Exam/Review of Systems Exam Vitals Vital Signs Date Temp Pulse Resp B/P (MAP) Pulse Ox O2 O2 Flow FiO2 Time Delivery Rate 07/16/18 92 3.0 15:03 07/16/18 90 12:00 07/16/18 97.8 19 145/73 11:37 (97) 07/16/18 Nasal 09:36 Cannula 07/16/18 45 06:00 Intake and Output 07/15/18 07/15/18 07/16/18 1414:59 22:59 06:59 IntakeIntake Total 100 ml 1000 ml 100 ml OutputOutput Total 2050 ml 200 ml BalanceBalance 100 ml -1050 ml -100 ml Results Result Diagram: 07/16/18 0506 07/16/18 0506 Results 24hrs Laboratory Tests Test 07/15/18 17:12 07/15/18 21:32 07/16/18 05:04 07/16/18 05:06 Bedside Glucose 126 110 Phosphorus Level 4.6 Magnesium Level 1.6 L White Blood Count 5.7 Red Blood Count 3.47 L Hemoglobin 10.6 L Hematocrit 33.6 L Mean Corpuscular Volume 96.8 Mean Corpuscular 30.5 Hemoglobin Mean Corpuscular 31.5 L Hemoglobin Concent Red Cell Distribution 15.2 H Width Platelet Count 196 Mean Platelet Volume 10.1 Immature Granulocytes % 1.400 H Neutrophils % 81.5 H Lymphocytes % 10.2 L Monocytes % 6.2 Eosinophils % 0.2 Basophils % 0.5 Nucleated Red Blood 0.0 Cells % Immature Granulocytes # 0.080 H Neutrophils # 4.6 Lymphocytes # 0.6 L Monocytes # 0.4 Eosinophils # 0.0 Basophils # 0.0 Nucleated Red Blood 0.0 Cells # Sodium Level 138 Potassium Level 4.2 Chloride Level 94 L Carbon Dioxide Level 33 H Anion Gap 11 Blood Urea Nitrogen 21 H Creatinine 0.59 L Est Glomerular Filtrat > 60 Rate mL/min Glucose Level 95 Calcium Level 8.9 Test 07/16/18 07:30 07/16/18 11:52 Bedside Glucose 108 255 H Medications Medication Current Medications IV Flush (NS 3 ml) 3 ml PER PROTOCOL IV ; Start 07/06/18 at 05:00 Ondansetron HCl (Zofran Inj) 4 mg Q6H PRN IV NAUSEA/VOMITING; Start 07/06/18 at 05:00 Acetaminophen (Tylenol Tab) 650 mg Q6H PRN PO .PAIN 1-3 OR TEMP Last administered on 07/11/18 20:49; Admin Dose 650 MG; Start 07/06/18 at 05:00 Acetaminophen/ Hydrocodone Bitart ([place] (5/325)) 1 tab Q6H PRN PO .MOD PAIN 4- 6 Last administered on 07/12/18 18:30; Admin Dose 1 TAB; Start 07/06/18 at 05:00 Acetaminophen/ Hydrocodone Bitart ([place] (5/325)) 2 tab Q6H PRN PO .SEVERE PAIN 7-10; Start 07/06/18 at 05:00 Heparin Sodium (Porcine) (Heparin (5000 Units/1ml)) 5,000 unit Q12 SC Last administered on 07/16/18 08:05; Admin Dose 5,000 UNIT; Start 07/06/18 at 09:00 Ascorbic Acid (Vitamin C) 1,000 mg DAILY PO Last administered on 07/16/18 07:54; Admin Dose 1,000 MG; Start 07/06/18 at 09:00 Atorvastatin Calcium (Lipitor) 40 mg QHS PO Last administered on 07/15/18 20:49; Admin Dose 40 MG; Start 07/06/18 at 21:00 Baclofen (Lioresal) 20 mg TID PO Last administered on 07/16/18 12:03; Admin Dose 20 MG; Start 07/06/18 at 09:00 Fluticasone Propionate (Flonase 0.05% Nasal) 1 spray BID NASAL Last administered on 07/16/18 07:55; Admin Dose 1 SPRAY; Start 07/06/18 at 09:00 Hydroxyzine HCl (Atarax) 25 mg BID PRN PO ITCHING; Start 07/06/18 at 05:00 Naproxen (Naprosyn) 500 mg BID PRN PO PAIN; Start 07/06/18 at 05:00 Miscellaneous Information (Pending Santyl Order For Wound Care) This patient lopez... PRN PRN XX WOUND CARE; Start 07/06/18 at 11:00 Acetylcysteine (Mucomyst) 1 ml Q6H RESP THERAPY NEB Last administered on 07/16/18 14:58; Admin Dose 1 ML; Start 07/06/18 at 14:00 Collagenase (Santyl) 1 applic DAILY TOP Last administered on 07/16/18 07:54; Admin Dose 1 APPLIC; Start 07/08/18 at 09:00 Vancomycin HCl (Vanco Iv Per Pharmacy) VANCOMYCIN PER PHARMACY PER PROTOCOL XX ; Start 07/07/18 at 14:30 Albuterol (Proventil 0.083% (Neb)) 2.5 mg Q6H RESP THERAPY NEB Last administered on 07/16/18 14:58; Admin Dose 2.5 MG; Start 07/07/18 at 17:00 Albuterol (Ventolin Hfa) 2 puff Q6H RESP THERAPY INH Last administered on 07/10/18 13:40; Admin Dose 2 PUFF; Start 07/07/18 at 17:00; Status Hold Insulin Aspart (Novolog Insulin Pen) NOVOLOG *MODERATE* ALGORITHM WITH MEALS BEDTIME SC Last administered on 07/16/18 12:07; Admin Dose 6 UNIT; Start 07/07/18 at 18:05 Metformin HCl (Glucophage) 500 mg WITH LUNCH PO Last administered on 07/16/18 11:54; Admin Dose 500 MG; Start 07/09/18 at 11:50 Miscellaneous Information 1 ea NOTE XX ; Start 07/09/18 at 17:30 Glucose (Glutose) 15 gm Q15M PRN PO DECREASED GLUCOSE; Start 07/09/18 at 17:30 Glucose (Glutose) 22.5 gm Q15M PRN PO DECREASED GLUCOSE; Start 07/09/18 at 17:30 Dextrose (D50w Syringe) 25 ml Q15M PRN IV DECREASED GLUCOSE; Start 07/09/18 at 17:30 Dextrose (D50w Syringe) 50 ml Q15M PRN IV DECREASED GLUCOSE; Start 07/09/18 at 17:30 Glucagon (Glucagen) 1 mg Q15M PRN IM DECREASED GLUCOSE; Start 07/09/18 at 17:30 Glucose (Glutose) 15 gm Q15M PRN BUCCAL DECREASED GLUCOSE; Start 07/09/18 at 17:30 Vancomycin HCl 1.5 gm/Sodium Chloride 250 ml @ 83.333 mls/ hr Q24H IVPB Last administered on 07/15/18 17:14; Admin Dose 83.333 MLS/HR; Start 07/10/18 at 18:00 Famotidine (Pepcid) 20 mg HS PO Last administered on 07/15/18 20:49; Admin Dose 20 MG; Start 07/10/18 at 21:00 Guaifenesin/ Dextromethorphan (Robitussin Dm Liquid Cup) 10 ml Q4H PRN PO COUGH; Start 07/10/18 at 14:00 Potassium Chloride (Potassium Chloride Pwd/Soln) 40 meq DAILY PO Last admin istered on 07/16/18 07:53; Admin Dose 40 MEQ; Start 07/10/18 at 14:00 Ertapenem 1 gm/ Sodium Chloride 100 ml @ 200 mls/hr Q24H IVPB Last administered on 07/16/18 11:54; Admin Dose 200 MLS/HR; Start 07/11/18 at 12:00 Furosemide (Lasix) 40 mg DAILY IV Last administered on 07/16/18 07:54; Admin Dose 40 MG; Start 07/14/18 at 12:00 Fluconazole (Diflucan) 100 mg DAILY PO Last administered on 07/16/18 07:53; Admin Dose 100 MG; Start 07/14/18 at 12:00 Miscellaneous Information (*Rx Drug Level Order Reminder*) VANCO TROUGH @ 1,700 ON... 1700 ONCE XX ; Start 07/17/18 at 17:00; Stop 07/17/18 at 17:01 MALIKA FISHER NP Jul 16, 2018 15:16
[2018-07-16] MEDS: VANCOMYCIN HCL 1.5 GM in SOD CHLORIDE 0.9% 250 ML IVPB SCH (17:12)
[2018-07-16] MEDS: FAMOTIDINE 20 MG TAB PO SCH (20:58)
[2018-07-16] MEDS: ATORVASTATIN 40 MG TAB PO SCH (20:58)
[2018-07-16] MEDS: hydrOXYzine HCL 25 MG TAB PO PRN (22:51)
[2018-07-17] VITALS (12 sets, daily range): BP systolic 100–136; BP diastolic 56–84; PULSE 69–98; RESP 15–19
[2018-07-17] MEDS: ACETYLCYSTEINE 20% 4 ML VIAL NEB SCH ×4 (01:51→20:07)
[2018-07-17] MEDS: ALBUTEROL 0.083% (NEB) 2.5 MG/3 ML AMP NEB SCH ×4 (01:51→20:06)
[2018-07-17] MEDS: INSULIN ASPART [NOVOLOG] 3 ML PEN SC SCH ×4 (07:44→22:00)
[2018-07-17] MEDS: COLLAGENASE 5 GM (UD JAR) TOP SCH (08:41)
[2018-07-17] MEDS: POTASSIUM CHLORIDE 20 MEQ POWDER FOR ORAL SOLN PO SCH (08:42)
[2018-07-17] MEDS: FLUCONAZOLE 100 MG TAB PO SCH (08:43)
[2018-07-17] MEDS: BALSAM PERU/CASTOR OIL 60 GM TUBE TOP SCH ×2 (08:43→21:00)
[2018-07-17] MEDS: ASCORBIC ACID 500 MG TAB PO SCH (08:43)
[2018-07-17] MEDS: BACLOFEN 10 MG TAB PO SCH ×3 (08:43→21:56)
[2018-07-17] MEDS: FLUTICASONE 0.05% 16 GM NAS SPRAY NASAL SCH ×2 (08:43→21:57)
[2018-07-17] MEDS: FUROSEMIDE 40 MG INJ IV SCH (08:43)
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
[2018-07-17] MEDS: metFORMIN 500 MG TAB PO SCH (11:55)
[2018-07-17] MEDS: ERTAPENEM SODIUM 1 GM in SOD CHLORIDE 0.9% 100 ML IVPB SCH (11:57)
[2018-07-17] MEDS: HEPARIN 5,000 UNIT/1 ML VIAL SC SCH ×2 (12:09→21:00)
--- NOTE | 2018-07-17 14:24 | CONS ---
Consult Date/Type/Reason Admit Date/Time Jul 06, 2018 at 04:04 Initial Consult Date Type of Consultation: Pulm Date/Time of Note DATE: 07/17/18 TIME: 14:22 Subjective Patient requested to be placed on BiPAP. Now on 50% FiO2. Objective Vitals Vital Signs Date Temp Pulse Resp B/P (MAP) Pulse Ox O2 O2 Flow FiO2 Time Delivery Rate 07/17/18 98.6 90 16 100/56 CPAP 13:32 (71) 07/17/18 100 35 13:17 07/17/18 3.0 13:10 Intake and Output 07/16/18 07/16/18 07/17/18 1515:00 23:00 07:00 IntakeIntake Total 100 ml 1500 ml 440 ml OutputOutput Total 1500 ml 800 ml BalanceBalance 100 ml 0 ml -360 ml Exam HEENT: Neck supple; no JVD; no LAD CVS: RRR, S1 and S2 CHEST: Bibasilar rales ABD: Soft, NT, + BS EXT: ++ edema Results/Medications Result Diagram: 07/17/18 0600 07/17/18 0600 Results 24 hrs Laboratory Tests Test 07/16/18 17:11 07/16/18 21:10 07/17/18 06:00 07/17/18 07:43 Bedside Glucose 127 138 108 White Blood Count 3.8 #L Red Blood Count 3.51 L Hemoglobin 10.6 L Hematocrit 33.4 L Mean Corpuscular Volume 95.2 Mean Corpuscular 30.2 Hemoglobin Mean Corpuscular 31.7 L Hemoglobin Concent Red Cell Distribution 14.6 H Width Platelet Count 205 Mean Platelet Volume 10.1 Immature Granulocytes % 1.600 H Neutrophils % 73.7 Lymphocytes % 12.8 L Monocytes % 10.1 Eosinophils % 1.3 Basophils % 0.5 Nucleated Red Blood 0.0 Cells % Immature Granulocytes # 0.060 H Neutrophils # 2.8 Lymphocytes # 0.5 L Monocytes # 0.4 Eosinophils # 0.1 Basophils # 0.0 Nucleated Red Blood 0.0 Cells # Sodium Level 138 Potassium Level 4.1 Chloride Level 96 L Carbon Dioxide Level 34 H Anion Gap 8 Blood Urea Nitrogen 18 Creatinine 0.70 Est Glomerular Filtrat > 60 Rate mL/min Glucose Level 114 Calcium Level 9.1 Phosphorus Level 3.6 Magnesium Level 1.7 Test 07/17/18 11:56 Bedside Glucose 138 Home Meds Active Scripts Albuterol Sulfate* (Ventolin HFA*) 18 Gm Hfa.aer.ad, 2 PUFF INHALATION Q4H, #1 INHALER Prov:JOSÉ MIGUEL SINHA MD 07/03/18 Azithromycin* (Zithromax*) 250 Mg Tablet, 250 MG PO .ZPACK DIRECTED, #6 TAB TAKE 500 MG (2 TABS) THE FIRST DAY THEN 250 MG (1 TAB) DAYS 2-5 Prov:JOSÉ MIGUEL SINHA MD 07/03/18 Hydrocodone/Acetaminophen ([place] 5-325 Tablet) 1 Each Tablet, 1 TAB PO Q6H PRN for PAIN, #12 TAB Prov:ANU CASTELLANOS DO 06/28/18 Naproxen* (Naproxen*) 500 Mg Tablet, 500 MG PO BID PRN for PAIN, #14 TAB Prov:LISHA COHEN DO 12/17/17 Reported Medications Metformin* (Glucophage*) 500 Mg Tab, 500 MG PO WITH LUNCH DINNER, #60 TAB 07/08/18 Ascorbic Acid* (Vitamin C*) 500 Mg Capsule.sa, 1000 MG PO DAILY, CAP 12/17/17 Albuterol Sulfate* (Albuterol Sulfate* Neb) 0.083%-3 Ml Neb, 2.5 MG NEB Q4H PRN for WHEEZING AND SOB, #30 VIAL 02/14/17 Hydroxyzine Hcl* (Hydroxyzine Hcl*) 25 Mg Tablet, 25 MG PO BID PRN for ITCHING, #30 TAB 01/06/17 Atorvastatin* (Atorvastatin*) 40 Mg Tablet, 40 MG PO QHS, #30 TAB 01/06/17 Fluticasone Propionate* (Fluticasone Propionate* Nasal) 50 Mcg/[place] - 16 Gm [place].susp, 2 SPRAYS NASAL BID, #1 BOTTLE TO EACH NOSTRIL 07/04/16 Baclofen* (Baclofen*) 20 Mg Tablet, 20 MG PO TID, TAB 04/24/16 Albuterol Sulfate* (Ventolin HFA*) 18 Gm Hfa.aer.ad, 2 PUFF INHALATION Q4H PRN for WHEEZING AND RESP DISTRESS, #1 INHALER 04/24/16 Medications Current Medications IV Flush (NS 3 ml) 3 ml PER PROTOCOL IV ; Start 07/06/18 at 05:00 Ondansetron HCl (Zofran Inj) 4 mg Q6H PRN IV NAUSEA/VOMITING; Start 07/06/18 at 05:00 Acetaminophen (Tylenol Tab) 650 mg Q6H PRN PO .PAIN 1-3 OR TEMP Last administered on 07/11/18 20:49; Admin Dose 650 MG; Start 07/06/18 at 05:00 Acetaminophen/ Hydrocodone Bitart ([place] (5/325)) 1 tab Q6H PRN PO .MOD PAIN 4- 6 Last administered on 07/12/18 18:30; Admin Dose 1 TAB; Start 07/06/18 at 05:00 Acetaminophen/ Hydrocodone Bitart ([place] (5/325)) 2 tab Q6H PRN PO .SEVERE PAIN 7-10; Start 07/06/18 at 05:00 Heparin Sodium (Porcine) (Heparin (5000 Units/1ml)) 5,000 unit Q12 SC Last administered on 07/17/18 12:09; Admin Dose 5,000 UNIT; Start 07/06/18 at 09:00 Ascorbic Acid (Vitamin C) 1,000 mg DAILY PO Last administered on 07/17/18 08:43; Admin Dose 1,000 MG; Start 07/06/18 at 09:00 Atorvastatin Calcium (Lipitor) 40 mg QHS PO Last administered on 07/16/18 20:58; Admin Dose 40 MG; Start 07/06/18 at 21:00 Baclofen (Lioresal) 20 mg TID PO Last administered on 07/17/18 12:01; Admin Dose 20 MG; Start 07/06/18 at 09:00 Fluticasone Propionate (Flonase 0.05% Nasal) 1 spray BID NASAL Last administere d on 07/17/18 08:43; Admin Dose 1 SPRAY; Start 07/06/18 at 09:00 Hydroxyzine HCl (Atarax) 25 mg BID PRN PO ITCHING Last administered on 07/16/18 22:51; Admin Dose 25 MG; Start 07/06/18 at 05:00 Naproxen (Naprosyn) 500 mg BID PRN PO PAIN; Start 07/06/18 at 05:00 Miscellaneous Information (Pending [facility] Order For Wound Care) This patient lopez... PRN PRN XX WOUND CARE; Start 07/06/18 at 11:00 Acetylcysteine (Mucomyst) 1 ml Q6H RESP THERAPY NEB Last administered on 07/17/18at 13:00; Admin Dose 1 ML; Start 07/06/18 at 14:00 Collagenase (Santyl) 1 applic DAILY TOP Last administered on 07/17/18at 08:41; Admin Dose 1 APPLIC; Start 07/08/18 at 09:00 Vancomycin HCl (Vanco Iv Per Pharmacy) VANCOMYCIN PER PHARMACY PER PROTOCOL XX ; Start 07/07/18 at 14:30 Albuterol (Proventil 0.083% (Neb)) 2.5 mg Q6H RESP THERAPY NEB Last administered on 07/17/18at 13:00; Admin Dose 2.5 MG; Start 07/07/18 at 17:00 Albuterol (Ventolin Hfa) 2 puff Q6H RESP THERAPY INH Last administered on 07/10/18at 13:40; Admin Dose 2 PUFF; Start 07/07/18 at 17:00; Status Hold Insulin Aspart (Novolog Insulin Pen) NOVOLOG *MODERATE* ALGORITHM WITH MEALS BEDTIME SC Last administered on 07/16/18at 12:07; Admin Dose 6 UNIT; Start 07/07/18 at 18:05 Metformin HCl (Glucophage) 500 mg WITH LUNCH PO Last administered on 07/17/18at 11:55; Admin Dose 500 MG; Start 07/09/18 at 11:50 Miscellaneous Information 1 ea NOTE XX ; Start 07/09/18 at 17:30 Glucose (Glutose) 15 gm Q15M PRN PO DECREASED GLUCOSE; Start 07/09/18 at 17:30 Glucose (Glutose) 22.5 gm Q15M PRN PO DECREASED GLUCOSE; Start 07/09/18 at 17:30 Dextrose (D50w Syringe) 25 ml Q15M PRN IV DECREASED GLUCOSE; Start 07/09/18 at 17:30 Dextrose (D50w Syringe) 50 ml Q15M PRN IV DECREASED GLUCOSE; Start 07/09/18 at 17:30 Glucagon (Glucagen) 1 mg Q15M PRN IM DECREASED GLUCOSE; Start 07/09/18 at 17:30 Glucose (Glutose) 15 gm Q15M PRN BUCCAL DECREASED GLUCOSE; Start 07/09/18 at 17:30 Vancomycin HCl 1.5 gm/Sodium Chloride 250 ml @ 83.333 mls/ hr Q24H IVPB Last administered on 07/16/18 17:12; Admin Dose 83.333 MLS/HR; Start 07/10/18 at 18:00 Famotidine (Pepcid) 20 mg HS PO Last administered on 07/16/18at 20:58; Admin Dose 20 MG; Start 07/10/18 at 21:00 Guaifenesin/ Dextromethorphan (Robitussin Dm Liquid Cup) 10 ml Q4H PRN PO COUGH; Start 07/10/18 at 14:00 Potassium Chloride (Potassium Chloride Pwd/Soln) 40 meq DAILY PO Last administered on 07/17/18 08:42; Admin Dose 40 MEQ; Start 07/10/18 at 14:00 Ertapenem 1 gm/ Sodium Chloride 100 ml @ 200 mls/hr Q24H IVPB Last administered on 07/17/18at 11:57; Admin Dose 200 MLS/HR; Start 07/11/18 at 12:00 Furosemide (Lasix) 40 mg DAILY IV Last administered on 07/17/18 08:43; Admin Dose 40 MG; Start 07/14/18 at 12:00 Fluconazole (Diflucan) 100 mg DAILY PO Last administered on 07/17/18 08:43; Admin Dose 100 MG; Start 07/14/18 at 12:00 Miscellaneous Information (*Rx Drug Level Order Reminder*) VANCO TROUGH @ 1,700 ON... 1700 ONCE XX ; Start 07/17/18 at 17:00; Stop 07/17/18 at 17:01 Assessment/Plan Assessment/Plan (Daily) IMP: 1. Acute on chronic hypoxemic and hypercapnic respiratory failure. 2. Possible aspiration pneumonia versus healthcare-associated pneumonia. 3. Mild volume overload. 4. History of paraplegia with prior tracheostomy. RECS: 1. Continued antibiotics. 2. Pulmonary toilet/suctioning 3. Noninvasive positive pressure ventilation. 4. Obtain stat ABG and CXR OTILIO SAPP MD Jul 17, 2018 14:24
--- NOTE | 2018-07-17 15:13 | CONS ---
Assessment/Plan Assessment/Plan Hospital Course (Demo Recall) All noted, comfortable on Bipap, no fevers Sacral wound culture grew MRSA, [place] albicans and Corynebacterium species Antimicrobials: Vancomycin, Invanz, Diflucan Allergies: Sulfa Rocephin nitrofurantoin Indwelling: Suprapubic catheter, colostomy, peripheral IV Physical examination: Well-developed chronically ill-appearing middle-aged man who is awake in no distress. Head atraumatic normocephalic sclera nonicteric. Neck is supple. Chest rise symmetrical breath sounds diminished bases. Heart: S1-S2. Abdomen soft, bowel sounds present. Extremities wasted without cyanosis. Assessment: 1. Acute hypoxemic respiratory failure, possible aspiration versus healthcare a ssociated pneumonia 2. E. coli UTI 3. Paraplegia 4. Neurogenic bladder 5. Diabetes 6. Chronic decubitus ulcers Plan: Pulmonary rec-s noted, continue present care, will give last dose abx tomorrow Consultation Date/Type/Reason Admit Date/Time Jul 06, 2018 at 04:04 Initial Consult Date Type of Consult id Date/Time of Note DATE: 07/17/18 TIME: 15:12 Exam/Review of Systems Exam Vitals Vital Signs Date Temp Pulse Resp B/P (MAP) Pulse Ox O2 O2 Flow FiO2 Time Delivery Rate 07/17/18 98.6 90 16 100/56 CPAP 13:32 (71) 07/17/18 100 35 13:17 07/17/18 3.0 13:10 Intake and Output 07/16/18 07/16/18 07/17/18 1515:00 23:00 07:00 IntakeIntake Total 100 ml 1500 ml 440 ml OutputOutput Total 1500 ml 800 ml BalanceBalance 100 ml 0 ml -360 ml Results Result Diagram: 07/17/18 0600 07/17/18 0600 Results 24hrs Laboratory Tests Test 07/16/18 17:11 07/16/18 21:10 07/17/18 06:00 07/17/18 07:43 Bedside Glucose 127 138 108 White Blood Count 3.8 #L Red Blood Count 3.51 L Hemoglobin 10.6 L Hematocrit 33.4 L Mean Corpuscular Volume 95.2 Mean Corpuscular 30.2 Hemoglobin Mean Corpuscular 31.7 L Hemoglobin Concent Red Cell Distribution 14.6 H Width Platelet Count 205 Mean Platelet Volume 10.1 Immature Granulocytes % 1.600 H Neutrophils % 73.7 Lymphocytes % 12.8 L Monocytes % 10.1 Eosinophils % 1.3 Basophils % 0.5 Nucleated Red Blood 0.0 Cells % Immature Granulocytes # 0.060 H Neutrophils # 2.8 Lymphocytes # 0.5 L Monocytes # 0.4 Eosinophils # 0.1 Basophils # 0.0 Nucleated Red Blood 0.0 Cells # Sodium Level 138 Potassium Level 4.1 Chloride Level 96 L Carbon Dioxide Level 34 H Anion Gap 8 Blood Urea Nitrogen 18 Creatinine 0.70 Est Glomerular Filtrat > 60 Rate mL/min Glucose Level 114 Calcium Level 9.1 Phosphorus Level 3.6 Magnesium Level 1.7 Test 07/17/18 11:56 Bedside Glucose 138 Medications Medication Current Medications IV Flush (NS 3 ml) 3 ml PER PROTOCOL IV ; Start 07/06/18 at 05:00 Ondansetron HCl (Zofran Inj) 4 mg Q6H PRN IV NAUSEA/VOMITING; Start 07/06/18 at 05:00 Acetaminophen (Tylenol Tab) 650 mg Q6H PRN PO .PAIN 1-3 OR TEMP Last administered on 07/11/18at 20:49; Admin Dose 650 MG; Start 07/06/18 at 05:00 Acetaminophen/ Hydrocodone Bitart ([place] (5/325)) 1 tab Q6H PRN PO .MOD PAIN 4- 6 Last administered on 07/12/18 18:30; Admin Dose 1 TAB; Start 07/06/18 at 05:00 Acetaminophen/ Hydrocodone Bitart ([place] (5/325)) 2 tab Q6H PRN PO .SEVERE PAIN 7-10; Start 07/06/18 at 05:00 Heparin Sodium (Porcine) (Heparin (5000 Units/1ml)) 5,000 unit Q12 SC Last administered on 07/17/18 12:09; Admin Dose 5,000 UNIT; Start 07/06/18 at 09:00 Ascorbic Acid (Vitamin C) 1,000 mg DAILY PO Last administered on 07/17/18 08:43; Admin Dose 1,000 MG; Start 07/06/18 at 09:00 Atorvastatin Calcium (Lipitor) 40 mg QHS PO Last administered on 07/16/18 20:58; Admin Dose 40 MG; Start 07/06/18 at 21:00 Baclofen (Lioresal) 20 mg TID PO Last administered on 07/17/18 12:01; Admin Dose 20 MG; Start 07/06/18 at 09:00 Fluticasone Propionate (Flonase 0.05% Nasal) 1 spray BID NASAL Last administered on 07/17/18 08:43; Admin Dose 1 SPRAY; Start 07/06/18 at 09:00 Hydroxyzine HCl (Atarax) 25 mg BID PRN PO ITCHING Last administered on 07/16/18 22:51; Admin Dose 25 MG; Start 07/06/18 at 05:00 Naproxen (Naprosyn) 500 mg BID PRN PO PAIN; Start 07/06/18 at 05:00 Miscellaneous Information (Pending Santyl Order For Wound Care) This patient lopez... PRN PRN XX WOUND CARE; Start 07/06/18 at 11:00 Acetylcysteine (Mucomyst) 1 ml Q6H RESP THERAPY NEB Last administered on 07/17/18 13:00; Admin Dose 1 ML; Start 07/06/18 at 14:00 Collagenase (Santyl) 1 applic DAILY TOP Last administered on 07/17/18 08:41; Admin Dose 1 APPLIC; Start 07/08/18 at 09:00 Vancomycin HCl (Vanco Iv Per Pharmacy) VANCOMYCIN PER PHARMACY PER PROTOCOL XX ; Start 07/07/18 at 14:30 Albuterol (Proventil 0.083% (Neb)) 2.5 mg Q6H RESP THERAPY NEB Last administered on 07/17/18 13:00; Admin Dose 2.5 MG; Start 07/07/18 at 17:00 Albuterol (Ventolin Hfa) 2 puff Q6H RESP THERAPY INH Last administered on 07/10/18 13:40; Admin Dose 2 PUFF; Start 07/07/18 at 17:00; Status Hold Insulin Aspart (Novolog Insulin Pen) NOVOLOG *MODERATE* ALGORITHM WITH MEALS BEDTIME SC Last administered on 07/16/18 12:07; Admin Dose 6 UNIT; Start 07/07/18 at 18:05 Metformin HCl (Glucophage) 500 mg WITH LUNCH PO Last administered on 07/17/18 11:55; Admin Dose 500 MG; Start 07/09/18 at 11:50 Miscellaneous Information 1 ea NOTE XX ; Start 07/09/18 at 17:30 Glucose (Glutose) 15 gm Q15M PRN PO DECREASED GLUCOSE; Start 07/09/18 at 17:30 Glucose (Glutose) 22.5 gm Q15M PRN PO DECREASED GLUCOSE; Start 07/09/18 at 17:30 Dextrose (D50w Syringe) 25 ml Q15M PRN IV DECREASED GLUCOSE; Start 07/09/18 at 17:30 Dextrose (D50w Syringe) 50 ml Q15M PRN IV DECREASED GLUCOSE; Start 07/09/18 at 17:30 Glucagon (Glucagen) 1 mg Q15M PRN IM DECREASED GLUCOSE; Start 07/09/18 at 17:30 Glucose (Glutose) 15 gm Q15M PRN BUCCAL DECREASED GLUCOSE; Start 07/09/18 at 17:30 Vancomycin HCl 1.5 gm/Sodium Chloride 250 ml @ 83.333 mls/ hr Q24H IVPB Last administered on 07/16/18at 17:12; Admin Dose 83.333 MLS/HR; Start 07/10/18 at 18:00 Famotidine (Pepcid) 20 mg HS PO Last administered on 07/16/18at 20:58; Admin Dose 20 MG; Start 07/10/18 at 21:00 Guaifenesin/ Dextromethorphan (Robitussin Dm Liquid Cup) 10 ml Q4H PRN PO COUGH; Start 07/10/18 at 14:00 Potassium Chloride (Potassium Chloride Pwd/Soln) 40 meq DAILY PO Last administered on 07/17/18at 08:42; Admin Dose 40 MEQ; Start 07/10/18 at 14:00 Ertapenem 1 gm/ Sodium Chloride 100 ml @ 200 mls/hr Q24H IVPB Last administered on 07/17/18at 11:57; Admin Dose 200 MLS/HR; Start 07/11/18 at 12:00 Furosemide (Lasix) 40 mg DAILY IV Last administered on 07/17/18 08:43; Admin Dose 40 MG; Start 07/14/18 at 12:00 Fluconazole (Diflucan) 100 mg DAILY PO Last administered on 07/17/18 08:43; Admin Dose 100 MG; Start 07/14/18 at 12:00 Miscellaneous Information (*Rx Drug Level Order Reminder*) VANCO TROUGH @ 1,700 ON... 1700 ONCE XX ; Start 07/17/18 at 17:00; Stop 07/17/18 at 17:01 MALIKA FISHER NP Jul 17, 2018 15:13
[2018-07-17] MEDS: VANCOMYCIN HCL 1.5 GM in SOD CHLORIDE 0.9% 250 ML IVPB SCH (18:00)
[2018-07-17] MEDS: FAMOTIDINE 20 MG TAB PO SCH (21:56)
[2018-07-17] MEDS: ATORVASTATIN 40 MG TAB PO SCH (21:56)
[2018-07-17] MEDS: hydrOXYzine HCL 25 MG TAB PO PRN (22:14)
[2018-07-18] VITALS (14 sets, daily range): BP systolic 102–135; BP diastolic 62–90; PULSE 78–102; RESP 18–20
[2018-07-18] MEDS: ALBUTEROL 0.083% (NEB) 2.5 MG/3 ML AMP NEB SCH ×4 (02:17→19:12)
[2018-07-18] MEDS: ACETYLCYSTEINE 20% 4 ML VIAL NEB SCH ×4 (02:18→19:12)
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
[2018-07-18] MEDS ORDERED: MAGNESIUM SULFATE 2 GM/50 ML 50 ML IVPB ONE (07:00)
[2018-07-18] MEDS: INSULIN ASPART [NOVOLOG] 3 ML PEN SC SCH ×4 (08:17→20:54)
[2018-07-18] MEDS: POTASSIUM CHLORIDE 20 MEQ POWDER FOR ORAL SOLN PO SCH (08:40)
[2018-07-18] MEDS: COLLAGENASE 5 GM (UD JAR) TOP SCH (08:40)
[2018-07-18] MEDS: ASCORBIC ACID 500 MG TAB PO SCH (08:41)
[2018-07-18] MEDS: FLUCONAZOLE 100 MG TAB PO SCH (08:41)
[2018-07-18] MEDS: BALSAM PERU/CASTOR OIL 60 GM TUBE TOP SCH ×2 (08:41→20:46)
[2018-07-18] MEDS: FUROSEMIDE 40 MG INJ IV SCH (08:41)
[2018-07-18] MEDS: FLUTICASONE 0.05% 16 GM NAS SPRAY NASAL SCH ×2 (08:41→20:56)
[2018-07-18] MEDS: BACLOFEN 10 MG TAB PO SCH ×3 (08:41→20:45)
[2018-07-18] MEDS: HEPARIN 5,000 UNIT/1 ML VIAL SC SCH ×2 (08:55→20:50)
[2018-07-18] MEDS: metFORMIN 500 MG TAB PO SCH (12:08)
[2018-07-18] MEDS: ERTAPENEM SODIUM 1 GM in SOD CHLORIDE 0.9% 100 ML IVPB SCH (12:08)
--- NOTE | 2018-07-18 13:07 | CONS ---
Consult Date/Type/Reason Admit Date/Time Jul 06, 2018 at 04:04 Initial Consult Date Type of Consultation: Pulm Date/Time of Note DATE: 07/18/18 TIME: 13:05 Subjective No events. Off BiPAP. Objective Vitals Vital Signs Date Temp Pulse Resp B/P (MAP) Pulse Ox O2 O2 Flow FiO2 Time Delivery Rate 07/18/18 80 12:01 07/18/18 98.2 20 102/62 99 11:41 (75) 07/18/18 Nasal 3.0 08:00 Cannula 07/18/18 40 03:44 Intake and Output 07/17/18 07/17/18 07/18/18 1515:00 23:00 07:00 IntakeIntake Total 300 ml 360 ml OutputOutput Total 1400 ml 950 ml BalanceBalance -1100 ml 360 ml -950 ml Exam HEENT: Neck supple; no JVD; no LAD CVS: RRR, S1 and S2 CHEST: Bibasilar rales; reduced BS left base ABD: Soft, NT, + BS EXT: ++ edema Results/Medications Result Diagram: 07/18/18 0449 07/18/18 0449 Results 24 hrs Laboratory Tests Test 07/17/18 17:04 07/17/18 17:12 07/17/18 21:01 07/18/18 02:02 Vancomycin Level Trough 28.6 *H Bedside Glucose 132 195 187 Test 07/18/18 04:49 07/18/18 08:00 07/18/18 12:06 White Blood Count 3.8 L Red Blood Count 3.51 L Hemoglobin 10.8 L Hematocrit 33.1 L Mean Corpuscular Volume 94.3 Mean Corpuscular 30.8 Hemoglobin Mean Corpuscular 32.6 Hemoglobin Concent Red Cell Distribution 14.8 H Width Platelet Count 210 Mean Platelet Volume 10.0 Immature Granulocytes % 1.000 H Neutrophils % Lymphocytes % Monocytes % Eosinophils % Basophils % Nucleated Red Blood 0.0 Cells % Immature Granulocytes # 0.040 H Neutrophils # Lymphocytes # Monocytes # Eosinophils # Basophils # Nucleated Red Blood Cells # Sodium Level 139 Potassium Level 4.4 Chloride Level 98 Carbon Dioxide Level 33 H Anion Gap 8 Blood Urea Nitrogen 19 Creatinine 0.77 Est Glomerular Filtrat > 60 Rate mL/min Glucose Level 127 Calcium Level 9.3 Phosphorus Level 3.7 Magnesium Level 1.7 Bedside Glucose 182 143 Home Meds Active Scripts Albuterol Sulfate* (Ventolin HFA*) 18 Gm Hfa.aer.ad, 2 PUFF INHALATION Q4H, #1 INHALER Prov:JOSÉ MIGUEL SINHA MD 07/03/18 Azithromycin* (Zithromax*) 250 Mg Tablet, 250 MG PO .ZPACK DIRECTED, #6 TAB TAKE 500 MG (2 TABS) THE FIRST DAY THEN 250 MG (1 TAB) DAYS 2-5 Prov:JOSÉ MIGUEL SINHA MD 07/03/18 Hydrocodone/Acetaminophen ([place] 5-325 Tablet) 1 Each Tablet, 1 TAB PO Q6H PRN for PAIN, #12 TAB Prov:ANU CASTELLANOS DO 06/28/18 Naproxen* (Naproxen*) 500 Mg Tablet, 500 MG PO BID PRN for PAIN, #14 TAB Prov:LISHA COHEN DO 12/17/17 Reported Medications Metformin* (Glucophage*) 500 Mg Tab, 500 MG PO WITH LUNCH DINNER, #60 TAB 07/08/18 Ascorbic Acid* (Vitamin C*) 500 Mg Capsule.sa, 1000 MG PO DAILY, CAP 12/17/17 Albuterol Sulfate* (Albuterol Sulfate* Neb) 0.083%-3 Ml Neb, 2.5 MG NEB Q4H PRN for WHEEZING AND SOB, #30 VIAL 02/14/17 Hydroxyzine Hcl* (Hydroxyzine Hcl*) 25 Mg Tablet, 25 MG PO BID PRN for ITCHING, #30 TAB 01/06/17 Atorvastatin* (Atorvastatin*) 40 Mg Tablet, 40 MG PO QHS, #30 TAB 01/06/17 Fluticasone Propionate* (Fluticasone Propionate* Nasal) 50 Mcg/[place] - 16 Gm [place].susp, 2 SPRAYS NASAL BID, #1 BOTTLE TO EACH NOSTRIL 07/04/16 Baclofen* (Baclofen*) 20 Mg Tablet, 20 MG PO TID, TAB 04/24/16 Albuterol Sulfate* (Ventolin HFA*) 18 Gm Hfa.aer.ad, 2 PUFF INHALATION Q4H PRN for WHEEZING AND RESP DISTRESS, #1 INHALER 04/24/16 Medications Current Medications IV Flush (NS 3 ml) 3 ml PER PROTOCOL IV ; Start 07/06/18 at 05:00 Ondansetron HCl (Zofran Inj) 4 mg Q6H PRN IV NAUSEA/VOMITING; Start 07/06/18 at 05:00 Acetaminophen (Tylenol Tab) 650 mg Q6H PRN PO .PAIN 1-3 OR TEMP Last administered on 07/11/18 20:49; Admin Dose 650 MG; Start 07/06/18 at 05:00 Acetaminophen/ Hydrocodone Bitart ([place] (5/325)) 1 tab Q6H PRN PO .MOD PAIN 4- 6 Last administered on 07/12/18 18:30; Admin Dose 1 TAB; Start 07/06/18 at 05:00 Acetaminophen/ Hydrocodone Bitart ([place] (5/325)) 2 tab Q6H PRN PO .SEVERE PAIN 7-10; Start 07/06/18 at 05:00 Heparin Sodium (Porcine) (Heparin (5000 Units/1ml)) 5,000 unit Q12 SC Last administered on 07/18/18 08:55; Admin Dose 5,000 UNIT; Start 07/06/18 at 09:00 Ascorbic Acid (Vitamin C) 1,000 mg DAILY PO Last administered on 07/18/18 08:41; Admin Dose 1,000 MG; Start 07/06/18 at 09:00 Atorvastatin Calcium (Lipitor) 40 mg QHS PO Last administered on 07/17/18 21:56 ; Admin Dose 40 MG; Start 07/06/18 at 21:00 Baclofen (Lioresal) 20 mg TID PO Last administered on 07/18/18 12:07; Admin Dose 20 MG; Start 07/06/18 at 09:00 Fluticasone Propionate (Flonase 0.05% Nasal) 1 spray BID NASAL Last administered on 07/18/18 08:41; Admin Dose 1 SPRAY; Start 07/06/18 at 09:00 Hydroxyzine HCl (Atarax) 25 mg BID PRN PO ITCHING Last administered on 07/17/18 22:14; Admin Dose 25 MG; Start 07/06/18 at 05:00 Naproxen (Naprosyn) 500 mg BID PRN PO PAIN; Start 07/06/18 at 05:00 [facility] This patient lopez... PRN PRN XX WOUND CARE; Start 07/06/18 at 11:00 Acetylcysteine (Mucomyst) 1 ml Q6H RESP THERAPY NEB Last administered on 07/18/18 07:38; Admin Dose 1 ML; Start 07/06/18 at 14:00 Collagenase (Santyl) 1 applic DAILY TOP Last administered on 07/18/18 08:40; Admin Dose 1 APPLIC; Start 07/08/18 at 09:00 Vancomycin HCl (Vanco Iv Per Pharmacy) VANCOMYCIN PER PHARMACY PER PROTOCOL XX ; Start 07/07/18 at 14:30 Albuterol (Proventil 0.083% (Neb)) 2.5 mg Q6H RESP THERAPY NEB Last administered on 07/18/18 07:38; Admin Dose 2.5 MG; Start 07/07/18 at 17:00 Albuterol (Ventolin Hfa) 2 puff Q6H RESP THERAPY INH Last administered on 07/10/18at 13:40; Admin Dose 2 PUFF; Start 07/07/18 at 17:00; Status Hold Insulin Aspart (Novolog Insulin Pen) NOVOLOG *MODERATE* ALGORITHM WITH MEALS BEDTIME SC Last administered on 07/18/18 12:15; Admin Dose 1 UNIT; Start 07/07/18 at 18:05 Metformin HCl (Glucophage) 500 mg WITH LUNCH PO Last administered on 07/18/18 12:08; Admin Dose 500 MG; Start 07/09/18 at 11:50 Miscellaneous Information 1 ea NOTE XX ; Start 07/09/18 at 17:30 Glucose (Glutose) 15 gm Q15M PRN PO DECREASED GLUCOSE; Start 07/09/18 at 17:30 Glucose (Glutose) 22.5 gm Q15M PRN PO DECREASED GLUCOSE; Start 07/09/18 at 17:30 Dextrose (D50w Syringe) 25 ml Q15M PRN IV DECREASED GLUCOSE; Start 07/09/18 at 17:30 Dextrose (D50w Syringe) 50 ml Q15M PRN IV DECREASED GLUCOSE; Start 07/09/18 at 17:30 Glucagon (Glucagen) 1 mg Q15M PRN IM DECREASED GLUCOSE; Start 07/09/18 at 17:30 Glucose (Glutose) 15 gm Q15M PRN BUCCAL DECREASED GLUCOSE; Start 07/09/18 at 17:30 Famotidine (Pepcid) 20 mg HS PO Last administered on 07/17/18at 21:56; Admin Dose 20 MG; Start 07/10/18 at 21:00 Guaifenesin/ Dextromethorphan (Robitussin Dm Liquid Cup) 10 ml Q4H PRN PO COUGH; Start 07/10/18 at 14:00 Potassium Chloride (Potassium Chloride Pwd/Soln) 40 meq DAILY PO Last administered on 07/18/18 08:40; Admin Dose 40 MEQ; Start 07/10/18 at 14:00 Ertapenem 1 gm/ Sodium Chloride 100 ml @ 200 mls/hr Q24H IVPB Last administered on 07/18/18 12:08; Admin Dose 200 MLS/HR; Start 07/11/18 at 12:00 Furosemide (Lasix) 40 mg DAILY IV Last administered on 07/18/18at 08:41; Admin Dose 40 MG; Start 07/14/18 at 12:00 Fluconazole (Diflucan) 100 mg DAILY PO Last administered on 07/18/18at 08:41; Admin Dose 100 MG; Start 07/14/18 at 12:00 Vancomycin HCl 1.5 gm/Sodium Chloride 250 ml @ 83.333 mls/ hr Q48H IVPB ; Start 07/18/18 at 18:00 Assessment/Plan Assessment/Plan (Daily) IMP: 1. Acute on chronic hypoxemic and hypercapnic respiratory insufficiency 2. Possible aspiration pneumonia versus healthcare-associated pneumonia. 3. Mild volume overload. 4. History of paraplegia with prior tracheostomy. RECS: 1. Abx as per ID 2. Pulmonary toilet/suctioning/CPT 3. Noninvasive positive pressure ventilation prn OTILIO SAPP MD Jul 18, 2018 13:07
--- NOTE | 2018-07-18 13:39 | CONS ---
Assessment/Plan Assessment/Plan Hospital Course (Demo Recall) No events, comfortable on nc, no fevers Sacral wound culture grew MRSA, Maricruz albicans and Corynebacterium species Antimicrobials: Vancomycin, Invanz, Diflucan Allergies: Sulfa Rocephin nitrofurantoin Indwelling: Suprapubic catheter, colostomy, peripheral IV Physical examination: Well-developed chronically ill-appearing middle-aged man who is awake in no distress. Head atraumatic normocephalic sclera nonicteric. Neck is supple. Chest rise symmetrical breath sounds diminished bases. Heart: S1-S2. Abdomen soft, bowel sounds present. Extremities wasted without cyanosis. Assessment: 1. Acute hypoxemic respiratory failure, possible aspiration versus healthcare associated pneumonia 2. E. coli UTI 3. Paraplegia 4. Neurogenic bladder 5. Diabetes 6. Chronic decubitus ulcers Plan: Stable, completed abx, will dc and monitor Consultation Date/Type/Reason Admit Date/Time Jul 06, 2018 at 04:04 Initial Consult Date Type of Consult id Date/Time of Note DATE: 07/18/18 TIME: 13:38 Exam/Review of Systems Exam Vitals Vital Signs Date Temp Pulse Resp B/P (MAP) Pulse Ox O2 O2 Flow FiO2 Time Delivery Rate 07/18/18 80 12:01 07/18/18 98.2 20 102/62 99 11:41 (75) 07/18/18 Nasal 3.0 08:00 Cannula 07/18/18 40 03:44 Intake and Output 07/17/18 07/17/18 07/18/18 1515:00 23:00 07:00 IntakeIntake Total 300 ml 360 ml OutputOutput Total 1400 ml 950 ml BalanceBalance -1100 ml 360 ml -950 ml Results Result Diagram: 07/18/18 0449 07/18/18 0449 Results 24hrs Laboratory Tests Test 07/17/18 17:04 07/17/18 17:12 07/17/18 21:01 07/18/18 02:02 Vancomycin Level Trough 28.6 *H Bedside Glucose 132 195 187 Test 07/18/18 04:49 07/18/18 08:00 07/18/18 12:06 White Blood Count 3.8 L Red Blood Count 3.51 L Hemoglobin 10.8 L Hematocrit 33.1 L Mean Corpuscular Volume 94.3 Mean Corpuscular 30.8 Hemoglobin Mean Corpuscular 32.6 Hemoglobin Concent Red Cell Distribution 14.8 H Width Platelet Count 210 Mean Platelet Volume 10.0 Immature Granulocytes % 1.000 H Neutrophils % Lymphocytes % Monocytes % Eosinophils % Basophils % Nucleated Red Blood 0.0 Cells % Immature Granulocytes # 0.040 H Neutrophils # Lymphocytes # Monocytes # Eosinophils # Basophils # Nucleated Red Blood Cells # Sodium Level 139 Potassium Level 4.4 Chloride Level 98 Carbon Dioxide Level 33 H Anion Gap 8 Blood Urea Nitrogen 19 Creatinine 0.77 Est Glomerular Filtrat > 60 Rate mL/min Glucose Level 127 Calcium Level 9.3 Phosphorus Level 3.7 Magnesium Level 1.7 Bedside Glucose 182 143 Medications Medication Current Medications IV Flush (NS 3 ml) 3 ml PER PROTOCOL IV ; Start 07/06/18 at 05:00 Ondansetron HCl (Zofran Inj) 4 mg Q6H PRN IV NAUSEA/VOMITING; Start 07/06/18 at 05:00 Acetaminophen (Tylenol Tab) 650 mg Q6H PRN PO .PAIN 1-3 OR TEMP Last administered on 07/11/18 20:49; Admin Dose 650 MG; Start 07/06/18 at 05:00 Acetaminophen/ Hydrocodone Bitart ([place] (5/325)) 1 tab Q6H PRN PO .MOD PAIN 4- 6 Last administered on 07/12/18 18:30; Admin Dose 1 TAB; Start 07/06/18 at 05:00 Acetaminophen/ Hydrocodone Bitart ([place] (5/325)) 2 tab Q6H PRN PO .SEVERE PAIN 7-10; Start 07/06/18 at 05:00 Heparin Sodium (Porcine) (Heparin (5000 Units/1ml)) 5,000 unit Q12 SC Last administered on 07/18/18 08:55; Admin Dose 5,000 UNIT; Start 07/06/18 at 09:00 Ascorbic Acid (Vitamin C) 1,000 mg DAILY PO Last administered on 07/18/18 08:41; Admin Dose 1,000 MG; Start 07/06/18 at 09:00 Atorvastatin Calcium (Lipitor) 40 mg QHS PO Last administered on 07/17/18 21:56; Admin Dose 40 MG; Start 07/06/18 at 21:00 Baclofen (Lioresal) 20 mg TID PO Last administered on 07/18/18 12:07; Admin Dose 20 MG; Start 07/06/18 at 09:00 Fluticasone Propionate (Flonase 0.05% Nasal) 1 spray BID NASAL Last administered on 07/18/18 08:41; Admin Dose 1 SPRAY; Start 07/06/18 at 09:00 Hydroxyzine HCl (Atarax) 25 mg BID PRN PO ITCHING Last administered on 07/17/18 22:14; Admin Dose 25 MG; Start 07/06/18 at 05:00 Naproxen (Naprosyn) 500 mg BID PRN PO PAIN; Start 07/06/18 at 05:00 Miscellaneous Information (Pending Santyl Order For Wound Care) This patient lopez... PRN PRN XX WOUND CARE; Start 07/06/18 at 11:00 Acetylcysteine (Mucomyst) 1 ml Q6H RESP THERAPY NEB Last administered on 07/18/18 07:38; Admin Dose 1 ML; Start 07/06/18 at 14:00 Collagenase (Santyl) 1 applic DAILY TOP Last administered on 07/18/18 08:40; Admin Dose 1 APPLIC; Start 07/08/18 at 09:00 Vancomycin HCl (Vanco Iv Per Pharmacy) VANCOMYCIN PER PHARMACY PER PROTOCOL XX ; Start 07/07/18 at 14:30 Albuterol (Proventil 0.083% (Neb)) 2.5 mg Q6H RESP THERAPY NEB Last administered on 07/18/18 07:38; Admin Dose 2.5 MG; Start 07/07/18 at 17:00 Albuterol (Ventolin Hfa) 2 puff Q6H RESP THERAPY INH Last administered on 07/10/18 13:40; Admin Dose 2 PUFF; Start 07/07/18 at 17:00; Status Hold Insulin Aspart (Novolog Insulin Pen) NOVOLOG *MODERATE* ALGORITHM WITH MEALS BEDTIME SC Last administered on 07/18/18 12:15; Admin Dose 1 UNIT; Start at 18:05 Metformin HCl (Glucophage) 500 mg WITH LUNCH PO Last administered on 07/18/18 12:08; Admin Dose 500 MG; Start 07/09/18 at 11:50 Miscellaneous Information 1 ea NOTE XX ; Start 07/09/18 at 17:30 Glucose (Glutose) 15 gm Q15M PRN PO DECREASED GLUCOSE; Start 07/09/18 at 17:30 Glucose (Glutose) 22.5 gm Q15M PRN PO DECREASED GLUCOSE; Start 07/09/18 at 17:30 Dextrose (D50w Syringe) 25 ml Q15M PRN IV DECREASED GLUCOSE; Start 07/09/18 at 17:30 Dextrose (D50w Syringe) 50 ml Q15M PRN IV DECREASED GLUCOSE; Start 07/09/18 at 17:30 Glucagon (Glucagen) 1 mg Q15M PRN IM DECREASED GLUCOSE; Start 07/09/18 at 17:30 Glucose (Glutose) 15 gm Q15M PRN BUCCAL DECREASED GLUCOSE; Start 07/09/18 at 17:30 Famotidine (Pepcid) 20 mg HS PO Last administered on 07/17/18at 21:56; Admin Dose 20 MG; Start 07/10/18 at 21:00 Guaifenesin/ Dextromethorphan (Robitussin Dm Liquid Cup) 10 ml Q4H PRN PO COUGH; Start 07/10/18 at 14:00 Potassium Chloride (Potassium Chloride Pwd/Soln) 40 meq DAILY PO Last admin istered on 07/18/18at 08:40; Admin Dose 40 MEQ; Start 07/10/18 at 14:00 Ertapenem 1 gm/ Sodium Chloride 100 ml @ 200 mls/hr Q24H IVPB Last administered on 07/18/18at 12:08; Admin Dose 200 MLS/HR; Start 07/11/18 at 12:00 Furosemide (Lasix) 40 mg DAILY IV Last administered on 07/18/18at 08:41; Admin Dose 40 MG; Start 07/14/18 at 12:00 Fluconazole (Diflucan) 100 mg DAILY PO Last administered on 07/18/18at 08:41; Admin Dose 100 MG; Start 07/14/18 at 12:00 Vancomycin HCl 1.5 gm/Sodium Chloride 250 ml @ 83.333 mls/ hr Q48H IVPB ; Start 07/18/18 at 18:00 MALIKA FISHER NP Jul 18, 2018 13:39
[2018-07-18] MEDS ORDERED: VANCOMYCIN HCL 1.5 GM in SOD CHLORIDE 0.9% 250 ML IVPB SCH (18:00)
[2018-07-18] MEDS: FAMOTIDINE 20 MG TAB PO SCH (20:44)
[2018-07-18] MEDS: ATORVASTATIN 40 MG TAB PO SCH (20:44)
[2018-07-19] VITALS (17 sets, daily range): BP systolic 101–134; BP diastolic 55–83; PULSE 72–124; RESP 18
[2018-07-19] MEDS: ACETYLCYSTEINE 20% 4 ML VIAL NEB SCH ×4 (01:00→20:06)
[2018-07-19] MEDS: ALBUTEROL 0.083% (NEB) 2.5 MG/3 ML AMP NEB SCH ×4 (01:00→20:06)
[2018-07-19] MEDS: INSULIN ASPART [NOVOLOG] 3 ML PEN SC SCH ×4 (08:00→21:00)
[2018-07-19] MEDS: FLUTICASONE 0.05% 16 GM NAS SPRAY NASAL SCH ×2 (08:17→21:02)
[2018-07-19] MEDS: ASCORBIC ACID 500 MG TAB PO SCH (08:17)
[2018-07-19] MEDS: BACLOFEN 10 MG TAB PO SCH ×3 (08:18→21:02)
[2018-07-19] MEDS: FUROSEMIDE 40 MG INJ IV SCH (08:19)
[2018-07-19] MEDS: BALSAM PERU/CASTOR OIL 60 GM TUBE TOP SCH ×2 (08:19→21:03)
[2018-07-19] MEDS: COLLAGENASE 5 GM (UD JAR) TOP SCH (08:19)
[2018-07-19] MEDS: HEPARIN 5,000 UNIT/1 ML VIAL SC SCH ×2 (08:30→21:08)
[2018-07-19] MEDS: POTASSIUM CHLORIDE 20 MEQ POWDER FOR ORAL SOLN PO SCH (08:31)
--- NOTE | 2018-07-19 10:33 | CONS ---
Consult Date/Type/Reason Admit Date/Time Jul 06, 2018 at 04:04 Initial Consult Date Type of Consult Pulmonary Date/Time of Note DATE: 07/19/18 TIME: 10:33 Subjective Continues to improve, less shortness of breath and congestion. Objective Vital Signs Date Temp Pulse Resp B/P (MAP) Pulse Ox O2 O2 Flow FiO2 Time Delivery Rate 07/19/18 3.0 08:47 07/19/18 90 20 97 Nasal 08:46 Cannula 07/19/18 98.0 101/55 07:50 (70) 07/19/18 40 03:20 Intake and Output 07/18/18 07/18/18 07/19/18 1515:00 23:00 07:00 IntakeIntake Total 950 ml 350 ml OutputOutput Total 1300 ml 1500 ml BalanceBalance -350 ml -1150 ml Exam GENERAL: Well-nourished well-developed gentleman VITAL SIGNS: per chart NECK: Supple. No JVD or lymphadenopathy. CARDIAC EXAM: S1, S2. No added sounds or murmurs. CHEST: clear bilaterally, No added sounds, rales or wheezes ABDOMEN: Soft, nontender. No guarding or rebound. EXTREMITIES: No cyanosis, clubbing or edema. NEUROLOGIC: Contractures Vent Setting Fraction of Inspired Oxygen pe: 30 Results/Medications Result Diagram: 07/19/18 0505 07/19/18 0505 Results 24 hrs Laboratory Tests Test 07/18/18 12:06 07/18/18 14:20 07/18/18 17:18 07/18/18 20:33 Bedside Glucose 143 137 211 Blood Gas Specimen Blood arterial Source Arterial Blood 07/17/2018 4:55:12 Date Drawn PM Arterial Blood pH 7.455 H (Temp corrected) Arterial Blood 45.7 H pCO2 (Temp correct) Arterial Blood pO2 65.3 L (Temp corrected) Arterial Blood 31.4 H HCO3 Arterial Blood 6.7 H Base Excess Arterial Blood 92.0 L Oxygen Saturation Los Test ACCEPTAB Arterial Blood Gas Right Radial Puncture Site Arterial 0.3 Blood Carboxyhemog lobin Arterial Blood 0.2 Methemoglobin Blood Gas A-a O2 94.9 H Differential Oxyhemoglobin 91.5 L Percent Blood Gas 37.0 Temperature Blood Gas Modality NASAL CANNULA FiO2 30.0 Blood Gas Notified [place] Whom Blood Gas Notified 07/17/2018 5:04:54 Time PM Test 07/19/18 01:43 07/19/18 05:05 07/19/18 08:15 Bedside Glucose 171 132 White Blood Count 4.8 # Red Blood Count 3.41 L Hemoglobin 10.3 L Hematocrit 32.0 L Mean Corpuscular 93.8 Volume Mean Corpuscular 30.2 Hemoglobin Mean Corpuscular 32.2 Hemoglobin Concent Red Cell 14.8 H Distribution Width Platelet Count 244 Mean Platelet 10.7 H Volume Immature 0.400 Granulocytes % Neutrophils % 70.8 Lymphocytes % 14.3 L Monocytes % 13.3 H Eosinophils % 0.8 Basophils % 0.4 Nucleated Red 0.0 Blood Cells % Immature 0.020 Granulocytes # Neutrophils # 3.4 Lymphocytes # 0.7 L Monocytes # 0.6 Eosinophils # 0.0 Basophils # 0.0 Nucleated Red 0.0 Blood Cells # Sodium Level 137 Potassium Level 5.0 Chloride Level 96 L Carbon Dioxide 31 Level Anion Gap 10 Blood Urea 22 H Nitrogen Creatinine 0.84 Est Glomerular > 60 Filtrat Rate mL/min Glucose Level 141 Calcium Level 9.3 Phosphorus Level 4.4 Magnesium Level 2.2 Medications Current Medications IV Flush (NS 3 ml) 3 ml PER PROTOCOL IV ; Start 07/06/18 at 05:00 Ondansetron HCl (Zofran Inj) 4 mg Q6H PRN IV NAUSEA/VOMITING; Start 07/06/18 at 05:00 Acetaminophen (Tylenol Tab) 650 mg Q6H PRN PO .PAIN 1-3 OR TEMP Last administer ed on 07/11/18at 20:49; Admin Dose 650 MG; Start 07/06/18 at 05:00 Acetaminophen/ Hydrocodone Bitart ([place] (5/325)) 1 tab Q6H PRN PO .MOD PAIN 4- 6 Last administered on 07/12/18at 18:30; Admin Dose 1 TAB; Start 07/06/18 at 05:00 Acetaminophen/ Hydrocodone Bitart ([place] (5/325)) 2 tab Q6H PRN PO .SEVERE PAIN 7-10; Start 07/06/18 at 05:00 Heparin Sodium (Porcine) (Heparin (5000 Units/1ml)) 5,000 unit Q12 SC Last administered on 07/19/18at 08:30; Admin Dose 5,000 UNIT; Start 07/06/18 at 09:00 Ascorbic Acid (Vitamin C) 1,000 mg DAILY PO Last administered on 07/19/18 08:17; Admin Dose 1,000 MG; Start 07/06/18 at 09:00 Atorvastatin Calcium (Lipitor) 40 mg QHS PO Last administered on 07/18/18 20:4 4; Admin Dose 40 MG; Start 07/06/18 at 21:00 Baclofen (Lioresal) 20 mg TID PO Last administered on 07/19/18 08:18; Admin Dose 20 MG; Start 07/06/18 at 09:00 Fluticasone Propionate (Flonase 0.05% Nasal) 1 spray BID NASAL Last administered on 07/19/18 08:17; Admin Dose 1 SPRAY; Start 07/06/18 at 09:00 Hydroxyzine HCl (Atarax) 25 mg BID PRN PO ITCHING Last administered on 07/17/18 22:14; Admin Dose 25 MG; Start 07/06/18 at 05:00 Naproxen (Naprosyn) 500 mg BID PRN PO PAIN; Start 07/06/18 at 05:00 Miscellaneous Information (Pending Santyl Order For Wound Care) This patient lopez... PRN PRN XX WOUND CARE; Start 07/06/18 at 11:00 Acetylcysteine (Mucomyst) 1 ml Q6H RESP THERAPY NEB Last administered on 07/19/18 08:45; Admin Dose 1 ML; Start 07/06/18 at 14:00 Collagenase (Santyl) 1 applic DAILY TOP Last administered on 07/19/18 08:19; Admin Dose 1 APPLIC; Start 07/08/18 at 09:00 Albuterol (Proventil 0.083% (Neb)) 2.5 mg Q6H RESP THERAPY NEB Last administered on 07/19/18 08:45; Admin Dose 2.5 MG; Start 07/07/18 at 17:00 Albuterol (Ventolin Hfa) 2 puff Q6H RESP THERAPY INH Last administered on 07/10/18 13:40; Admin Dose 2 PUFF; Start 07/07/18 at 17:00; Status Hold Insulin Aspart (Novolog Insulin Pen) NOVOLOG *MODERATE* ALGORITHM WITH MEALS BEDTIME SC Last administered on 07/18/18 20:54; Admin Dose 1 UNIT; Start 07/07/18 at 18:05 Metformin HCl (Glucophage) 500 mg WITH LUNCH PO Last administered on 07/18/18at 12:08; Admin Dose 500 MG; Start 07/09/18 at 11:50 Miscellaneous Information 1 ea NOTE XX ; Start 07/09/18 at 17:30 Glucose (Glutose) 15 gm Q15M PRN PO DECREASED GLUCOSE; Start 07/09/18 at 17:30 Glucose (Glutose) 22.5 gm Q15M PRN PO DECREASED GLUCOSE; Start 07/09/18 at 17:30 Dextrose (D50w Syringe) 25 ml Q15M PRN IV DECREASED GLUCOSE; Start 07/09/18 at 17:30 Dextrose (D50w Syringe) 50 ml Q15M PRN IV DECREASED GLUCOSE; Start 07/09/18 at 17:30 Glucagon (Glucagen) 1 mg Q15M PRN IM DECREASED GLUCOSE; Start 07/09/18 at 17:30 Glucose (Glutose) 15 gm Q15M PRN BUCCAL DECREASED GLUCOSE; Start 07/09/18 at 17:30 Famotidine (Pepcid) 20 mg HS PO Last administered on 07/18/18at 20:44; Admin Dose 20 MG; Start 07/10/18 at 21:00 Guaifenesin/ Dextromethorphan (Robitussin Dm Liquid Cup) 10 ml Q4H PRN PO COUGH; Start 07/10/18 at 14:00 Potassium Chloride (Potassium Chloride Pwd/Soln) 40 meq DAILY PO Last administered on 07/19/18at 08:31; Admin Dose 40 MEQ; Start 07/10/18 at 14:00 Furosemide (Lasix) 40 mg DAILY IV Last administered on 07/19/18at 08:19; Admin Dose 40 MG; Start 07/14/18 at 12:00 Assessment/Plan Hospital Course (Demo Recall) IMP: 1. Acute on chronic hypoxemic and hypercapnic respiratory insufficiency 2. Possible aspiration pneumonia versus healthcare-associated pneumonia. 3. Mild volume overload. 4. History of paraplegia with prior tracheostomy. RECS: 1. Abx as per ID 2. Pulmonary toilet/suctioning/CPT 3. Noninvasive positive pressure ventilation prn DC planning okay from pulmonary standpoint RODRÍGUEZ SONG MD, [facility] Jul 19, 2018 10:33
[2018-07-19] MEDS: metFORMIN 500 MG TAB PO SCH (11:59)
--- NOTE | 2018-07-19 13:43 | CONS ---
Assessment/Plan Assessment/Plan Hospital Course (Demo Recall) No events, looks comfortable, no fevers Sacral wound culture grew MRSA, [place] albicans and Corynebacterium species Antimicrobials: Vancomycin, Invanz, Diflucan Allergies: Sulfa Rocephin nitrofurantoin Indwelling: Suprapubic catheter, colostomy, peripheral IV Physical examination: Well-developed chronically ill-appearing middle-aged man who is awake in no distress. Head atraumatic normocephalic sclera nonicteric. Neck is supple. Chest rise symmetrical breath sounds diminished bases. Heart: S1-S2. Abdomen soft, bowel sounds present. Extremities wasted without cyanosis. Assessment: 1. Acute hypoxemic respiratory failure, possible aspiration versus healthcare associated pneumonia===> treated 2. E. coli UTI 3. Paraplegia 4. Neurogenic bladder 5. Diabetes 6. Chronic decubitus ulcers Plan: Stable, completed abx, f/u pulmonary rec-s Consultation Date/Type/Reason Admit Date/Time Jul 06, 2018 at 04:04 Initial Consult Date Type of Consult id Date/Time of Note DATE: 07/19/18 TIME: 13:42 Exam/Review of Systems Exam Vitals Vital Signs Date Temp Pulse Resp B/P (MAP) Pulse Ox O2 O2 Flow FiO2 Time Delivery Rate 07/19/18 98.2 72 18 107/60 98 11:53 (76) 07/19/18 3.0 08:47 07/19/18 Nasal 08:46 Cannula 07/19/18 40 03:20 Intake and Output 07/18/18 07/18/18 07/19/18 1515:00 23:00 07:00 IntakeIntake Total 950 ml 350 ml OutputOutput Total 1300 ml 1500 ml BalanceBalance -350 ml -1150 ml Results Result Diagram: 07/19/18 0505 07/19/18 0505 Results 24hrs Laboratory Tests Test 07/18/18 14:20 07/18/18 17:18 07/18/18 20:33 07/19/18 01:43 Blood Gas Specimen Blood arterial Source Arterial Blood 07/17/2018 4:55:12 Date Drawn PM Arterial Blood pH 7.455 H (Temp corrected) Arterial Blood 45.7 H pCO2 (Temp correct) Arterial Blood pO2 65.3 L (Temp corrected) Arterial Blood 31.4 H HCO3 Arterial Blood 6.7 H Base Excess Arterial Blood 92.0 L Oxygen Saturation Los Test ACCEPTAB Arterial Blood Gas Right Radial Puncture Site Arterial 0.3 Blood Carboxyhemog lobin Arterial Blood 0.2 Methemoglobin Blood Gas A-a O2 94.9 H Differential Oxyhemoglobin 91.5 L Percent Blood Gas 37.0 Temperature Blood Gas Modality NASAL CANNULA FiO2 30.0 Blood Gas Notified [place] Whom Blood Gas Notified 07/17/2018 5:04:54 Time PM Bedside Glucose 137 211 171 Test 07/19/18 05:05 07/19/18 08:15 07/19/18 11:57 White Blood Count 4.8 # Red Blood Count 3.41 L Hemoglobin 10.3 L Hematocrit 32.0 L Mean Corpuscular 93.8 Volume Mean Corpuscular 30.2 Hemoglobin Mean Corpuscular 32.2 Hemoglobin Concent Red Cell 14.8 H Distribution Width Platelet Count 244 Mean Platelet 10.7 H Volume Immature 0.400 Granulocytes % Neutrophils % 70.8 Lymphocytes % 14.3 L Monocytes % 13.3 H Eosinophils % 0.8 Basophils % 0.4 Nucleated Red 0.0 Blood Cells % Immature 0.020 Granulocytes # Neutrophils # 3.4 Lymphocytes # 0.7 L Monocytes # 0.6 Eosinophils # 0.0 Basophils # 0.0 Nucleated Red 0.0 Blood Cells # Sodium Level 137 Potassium Level 5.0 Chloride Level 96 L Carbon Dioxide 31 Level Anion Gap 10 Blood Urea 22 H Nitrogen Creatinine 0.84 Est Glomerular > 60 Filtrat Rate mL/min Glucose Level 141 Calcium Level 9.3 Phosphorus Level 4.4 Magnesium Level 2.2 Bedside Glucose 132 298 H Medications Medication Current Medications IV Flush (NS 3 ml) 3 ml PER PROTOCOL IV ; Start 07/06/18 at 05:00 Ondansetron HCl (Zofran Inj) 4 mg Q6H PRN IV NAUSEA/VOMITING; Start 07/06/18 at 05:00 Acetaminophen (Tylenol Tab) 650 mg Q6H PRN PO .PAIN 1-3 OR TEMP Last administered on 07/11/18at 20:49; Admin Dose 650 MG; Start 07/06/18 at 05:00 Acetaminophen/ Hydrocodone Bitart ([place] (5/325)) 1 tab Q6H PRN PO .MOD PAIN 4- 6 Last administered on 07/12/18at 18:30; Admin Dose 1 TAB; Start 07/06/18 at 05:00 Acetaminophen/ Hydrocodone Bitart ([place] (5/325)) 2 tab Q6H PRN PO .SEVERE PAIN 7-10; Start 07/06/18 at 05:00 Heparin Sodium (Porcine) (Heparin (5000 Units/1ml)) 5,000 unit Q12 SC Last administered on 07/19/18 08:30; Admin Dose 5,000 UNIT; Start 07/06/18 at 09:00 Ascorbic Acid (Vitamin C) 1,000 mg DAILY PO Last administered on 07/19/18 08:17; Admin Dose 1,000 MG; Start 07/06/18 at 09:00 Atorvastatin Calcium (Lipitor) 40 mg QHS PO Last administered on 07/18/18 20:44; Admin Dose 40 MG; Start 07/06/18 at 21:00 Baclofen (Lioresal) 20 mg TID PO Last administered on 07/19/18 12:00; Admin Dose 20 MG; Start 07/06/18 at 09:00 Fluticasone Propionate (Flonase 0.05% Nasal) 1 spray BID NASAL Last administered on 07/19/18 08:17; Admin Dose 1 SPRAY; Start 07/06/18 at 09:00 Hydroxyzine HCl (Atarax) 25 mg BID PRN PO ITCHING Last administered on 07/17/18 22:14; Admin Dose 25 MG; Start 07/06/18 at 05:00 Naproxen (Naprosyn) 500 mg BID PRN PO PAIN; Start 07/06/18 at 05:00 Miscellaneous Information (Pending Santyl Order For Wound Care) This patient lopez... PRN PRN XX WOUND CARE; Start 07/06/18 at 11:00 Acetylcysteine (Mucomyst) 1 ml Q6H RESP THERAPY NEB Last administered on 07/19/18 08:45; Admin Dose 1 ML; Start 07/06/18 at 14:00 Collagenase (Santyl) 1 applic DAILY TOP Last administered on 07/19/18 08:19; Admin Dose 1 APPLIC; Start 07/08/18 at 09:00 Albuterol (Proventil 0.083% (Neb)) 2.5 mg Q6H RESP THERAPY NEB Last administered on 07/19/18 08:45; Admin Dose 2.5 MG; Start 07/07/18 at 17:00 Albuterol (Ventolin Hfa) 2 puff Q6H RESP THERAPY INH Last administered on 07/10/18 13:40; Admin Dose 2 PUFF; Start 07/07/18 at 17:00; Status Hold Insulin Aspart (Novolog Insulin Pen) NOVOLOG *MODERATE* ALGORITHM WITH MEALS BEDTIME SC Last administered on 07/19/18 12:10; Admin Dose 8 UNIT; Start 07/07/18 at 18:05 Metformin HCl (Glucophage) 500 mg WITH LUNCH PO Last administered on 07/19/18 11:59; Admin Dose 500 MG; Start 07/09/18 at 11:50 Miscellaneous Information 1 ea NOTE XX ; Start 07/09/18 at 17:30 Glucose (Glutose) 15 gm Q15M PRN PO DECREASED GLUCOSE; Start 07/09/18 at 17:30 Glucose (Glutose) 22.5 gm Q15M PRN PO DECREASED GLUCOSE; Start 07/09/18 at 17:30 Dextrose (D50w Syringe) 25 ml Q15M PRN IV DECREASED GLUCOSE; Start 07/09/18 at 17:30 Dextrose (D50w Syringe) 50 ml Q15M PRN IV DECREASED GLUCOSE; Start 07/09/18 at 17:30 Glucagon (Glucagen) 1 mg Q15M PRN IM DECREASED GLUCOSE; Start 07/09/18 at 17:30 Glucose (Glutose) 15 gm Q15M PRN BUCCAL DECREASED GLUCOSE; Start 07/09/18 at 17:30 Famotidine (Pepcid) 20 mg HS PO Last administered on 07/18/18at 20:44; Admin Dose 20 MG; Start 07/10/18 at 21:00 Guaifenesin/ Dextromethorphan (Robitussin Dm Liquid Cup) 10 ml Q4H PRN PO COUGH; Start 07/10/18 at 14:00 Potassium Chloride (Potassium Chloride Pwd/Soln) 40 meq DAILY PO Last administered on 07/19/18 08:31; Admin Dose 40 MEQ; Start 07/10/18 at 14:00 Furosemide (Lasix) 40 mg DAILY IV Last administered on 07/19/18 08:19; Admin Dose 40 MG; Start 07/14/18 at 12:00 MALIKA FISHER NP Jul 19, 2018 13:43
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
--- NOTE | 2018-07-19 14:50 | PDOCDIS ---
Discharge Instructions CONDITION [id number] Patient Condition: [id number] Stable HOME CARE INSTRUCTIONS: [id number] Diet Instructions: [id number] Low Fat /Cholesterol ACTIVITY: [id number] Activity Restrictions: [id number] Slowly Increase Activity Avoid heavy lifting Do not Drive FOLLOW UP/APPOINTMENTS Follow-up Plan Appointment primary [address]. [address] Abrams 1-2 weeks JENNIFER COON MD Jul 19, 2018 14:50
[2018-07-19] MEDS ORDERED: POTA20PA23 PO (14:52)
[2018-07-19] MEDS ORDERED: LAS20 PO (14:52)
[2018-07-19] MEDS ORDERED: SAN30GM TOP (14:52)
[2018-07-19] MEDS ORDERED: ACET325T33 PO (14:52)
[2018-07-19] MEDS ORDERED: GUAI120S26 PO (14:52)
[2018-07-19] MEDS ORDERED: BALS60OI TOP (14:52)
[2018-07-19] MEDS: ATORVASTATIN 40 MG TAB PO SCH (21:01)
[2018-07-19] MEDS: FAMOTIDINE 20 MG TAB PO SCH (21:02)
[2018-07-19] MEDS: hydrOXYzine HCL 25 MG TAB PO PRN (21:34)
[2018-07-20] VITALS (12 sets, daily range): BP systolic 94–122; BP diastolic 53–80; PULSE 65–106; RESP 18–20
[2018-07-20] MEDS: ALBUTEROL 0.083% (NEB) 2.5 MG/3 ML AMP NEB SCH ×4 (02:39→23:05)
[2018-07-20] MEDS: ACETYLCYSTEINE 20% 4 ML VIAL NEB SCH ×4 (02:39→23:11)
[2018-07-20] MEDS: INSULIN ASPART [NOVOLOG] 3 ML PEN SC SCH ×4 (08:00→22:44)
[2018-07-20] MEDS ORDERED: FUROSEMIDE 20 MG TAB PO SCH (09:00)
[2018-07-20] MEDS: COLLAGENASE 5 GM (UD JAR) TOP SCH (09:34)
[2018-07-20] MEDS: FLUTICASONE 0.05% 16 GM NAS SPRAY NASAL SCH ×2 (09:34→21:00)
[2018-07-20] MEDS: POTASSIUM CHLORIDE 20 MEQ POWDER FOR ORAL SOLN PO SCH (09:35)
[2018-07-20] MEDS: ZINC SULFATE 220 MG CAP PO SCH (09:35)
[2018-07-20] MEDS: MULTIVITAMINS THERAPEUTIC TAB PO SCH (09:35)
[2018-07-20] MEDS: BACLOFEN 10 MG TAB PO SCH ×3 (09:35→23:14)
[2018-07-20] MEDS: ASCORBIC ACID 500 MG TAB PO SCH (09:35)
[2018-07-20] MEDS: BALSAM PERU/CASTOR OIL 60 GM TUBE TOP SCH ×2 (09:37→23:16)
[2018-07-20] MEDS: HEPARIN 5,000 UNIT/1 ML VIAL SC SCH ×2 (09:55→23:51)
--- NOTE | 2018-07-20 11:09 | CONS ---
Consult Date/Type/Reason Admit Date/Time Jul 06, 2018 at 04:04 Initial Consult Date Type of Consult Pulmonary Date/Time of Note DATE: 07/20/18 TIME: 11:08 Subjective Increasing respiratory distress yesterday possible re-aspiration. Now on bilevel ventilation. Objective Vital Signs Date Temp Pulse Resp B/P (MAP) Pulse Ox O2 O2 Flow FiO2 Time Delivery Rate 07/20/18 40 09:05 07/20/18 67 20 98 Nasal 3.0 08:48 Cannula 07/20/18 98.0 100/68 07:36 (79) Intake and Output 07/19/18 07/19/18 07/20/18 1515:00 23:00 07:00 IntakeIntake Total 1000 ml 250 ml OutputOutput Total 2300 ml 400 ml BalanceBalance -1300 ml -150 ml Exam GENERAL: Chronically ill-appearing gentleman on bilevel ventilation. VITAL SIGNS: per chart previous tracheostomy site NECK: Supple. No JVD or lymphadenopathy. CARDIAC EXAM: S1, S2. No added sounds or murmurs. CHEST: Diminished air entry bilaterally ABDOMEN: Soft, nontender. No guarding or rebound. EXTREMITIES: No cyanosis, clubbing or edema. NEUROLOGIC: Contractures Vent Setting Fraction of Inspired Oxygen pe: 30 Results/Medications Result Diagram: 07/20/18 0536 07/20/18 0536 Results 24 hrs Laboratory Tests Test 07/19/18 11:57 07/19/18 17:18 07/19/18 18:56 07/19/18 21:05 Bedside Glucose 298 H 155 133 Lactic Acid Level 3.0 *H Troponin I < 0.012 Test 07/20/18 05:36 07/20/18 07:55 White Blood Count 4.4 L Red Blood Count 3.65 L Hemoglobin 11.0 L Hematocrit 34.3 L Mean Corpuscular Volume 94.0 Mean Corpuscular 30.1 Hemoglobin Mean Corpuscular 32.1 Hemoglobin Concent Red Cell Distribution 14.9 H Width Platelet Count 262 Mean Platelet Volume 10.4 Immature Granulocytes % 0.900 H Neutrophils % 66.8 Lymphocytes % 15.8 Monocytes % 14.2 H Eosinophils % 1.6 Basophils % 0.7 Nucleated Red Blood 0.0 Cells % Immature Granulocytes # 0.040 H Neutrophils # 2.9 Lymphocytes # 0.7 L Monocytes # 0.6 Eosinophils # 0.1 Basophils # 0.0 Nucleated Red Blood 0.0 Cells # Sodium Level 136 Potassium Level 4.8 Chloride Level 96 L Carbon Dioxide Level 30 Anion Gap 10 Blood Urea Nitrogen 27 H Creatinine 0.98 Est Glomerular Filtrat > 60 Rate mL/min Glucose Level 187 Calcium Level 9.4 Phosphorus Level 4.2 Magnesium Level 1.8 Total Bilirubin 0.8 Direct Bilirubin 0.00 Indirect Bilirubin 0.8 Aspartate Amino 33 Transf (AST/SGOT) Alanine 27 Aminotransferase (ALT/SG PT) Alkaline Phosphatase 93 Troponin I < 0.012 Total Protein 8.2 H Albumin 3.9 Globulin 4.30 H Albumin/Globulin Ratio 0.90 Bedside Glucose 126 Medications Current Medications IV Flush (NS 3 ml) 3 ml PER PROTOCOL IV ; Start 07/06/18 at 05:00 Ondansetron HCl (Zofran Inj) 4 mg Q6H PRN IV NAUSEA/VOMITING; Start 07/06/18 at 05:00 Acetaminophen (Tylenol Tab) 650 mg Q6H PRN PO .PAIN 1-3 OR TEMP Last admi nistered on 07/11/18 20:49; Admin Dose 650 MG; Start 07/06/18 at 05:00 Acetaminophen/ Hydrocodone Bitart ([place] (5/325)) 1 tab Q6H PRN PO .MOD PAIN 4- 6 Last administered on 07/12/18 18:30; Admin Dose 1 TAB; Start 07/06/18 at 05:00 Acetaminophen/ Hydrocodone Bitart ([place] (5/325)) 2 tab Q6H PRN PO .SEVERE PAIN 7-10; Start 07/06/18 at 05:00 Heparin Sodium (Porcine) (Heparin (5000 Units/1ml)) 5,000 unit Q12 SC Last administered on 07/20/18 09:55; Admin Dose 5,000 UNIT; Start 07/06/18 at 09:00 Ascorbic Acid (Vitamin C) 1,000 mg DAILY PO Last administered on 07/20/18 09:35; Admin Dose 1,000 MG; Start 07/06/18 at 09:00 Atorvastatin Calcium (Lipitor) 40 mg QHS PO Last administered on 07/19/18 21:01; Admin Dose 40 MG; Start 07/06/18 at 21:00 Baclofen (Lioresal) 20 mg TID PO Last administered on 07/20/18 09:35; Admin Dose 20 MG; Start 07/06/18 at 09:00 Fluticasone Propionate (Flonase 0.05% Nasal) 1 spray BID NASAL Last administered on 07/20/18 09:34; Admin Dose 1 SPRAY; Start 07/06/18 at 09:00 Hydroxyzine HCl (Atarax) 25 mg BID PRN PO ITCHING Last administered on 07/19/18 21:34; Admin Dose 25 MG; Start 07/06/18 at 05:00 Naproxen (Naprosyn) 500 mg BID PRN PO PAIN; Start 07/06/18 at 05:00 Miscellaneous Information (Pending Santyl Order For Wound Care) This patient lopez... PRN PRN XX WOUND CARE; Start 07/06/18 at 11:00 Acetylcysteine (Mucomyst) 1 ml Q6H RESP THERAPY NEB Last administered on 07/20/18 08:45; Admin Dose 1 ML; Start 07/06/18 at 14:00 Collagenase (Santyl) 1 applic DAILY TOP Last administered on 07/20/18 09:34; Admin Dose 1 APPLIC; Start 07/08/18 at 09:00 Albuterol (Proventil 0.083% (Neb)) 2.5 mg Q6H RESP THERAPY NEB Last administered on 07/20/18 08:45; Admin Dose 2.5 MG; Start 07/07/18 at 17:00 Albuterol (Ventolin Hfa) 2 puff Q6H RESP THERAPY INH Last administered on 07/10/18 13:40; Admin Dose 2 PUFF; Start 07/07/18 at 17:00; Status Hold Insulin Aspart (Novolog Insulin Pen) NOVOLOG *MODERATE* ALGORITHM WITH MEALS BEDTIME SC Last administered on 07/19/18 17:22; Admin Dose 2 UNIT; Start 07/07/18 at 18:05 Metformin HCl (Glucophage) 500 mg WITH LUNCH PO Last administered on 07/19/18 11:59; Admin Dose 500 MG; Start 07/09/18 at 11:50 Miscellaneous Information 1 ea NOTE XX ; Start 07/09/18 at 17:30 Glucose (Glutose) 15 gm Q15M PRN PO DECREASED GLUCOSE; Start 07/09/18 at 17:30 Glucose (Glutose) 22.5 gm Q15M PRN PO DECREASED GLUCOSE; Start 07/09/18 at 17:30 Dextrose (D50w Syringe) 25 ml Q15M PRN IV DECREASED GLUCOSE; Start 07/09/18 at 17:30 Dextrose (D50w Syringe) 50 ml Q15M PRN IV DECREASED GLUCOSE; Start 07/09/18 at 17:30 Glucagon (Glucagen) 1 mg Q15M PRN IM DECREASED GLUCOSE; Start 07/09/18 at 17:30 Glucose (Glutose) 15 gm Q15M PRN BUCCAL DECREASED GLUCOSE; Start 07/09/18 at 17:30 Famotidine (Pepcid) 20 mg HS PO Last administered on 07/19/18at 21:02; Admin Dose 20 MG; Start 07/10/18 at 21:00 Guaifenesin/ Dextromethorphan (Robitussin Dm Liquid Cup) 10 ml Q4H PRN PO COUGH; Start 07/10/18 at 14:00 Potassium Chloride (Potassium Chloride Pwd/Soln) 40 meq DAILY PO Last administered on 07/20/18at 09:35; Admin Dose 40 MEQ; Start 07/10/18 at 14:00 Furosemide (Lasix) 20 mg DAILY PO Last administered on 07/20/18 09:35; Admin Dose 20 MG; Start 07/20/18 at 09:00 Zinc Sulfate (Zinc Sulfate) 220 mg DAILY PO Last administered on 07/20/18 09:35; Admin Dose 220 MG; Start 07/20/18 at 09:00 Multivitamins Therapeutic (Theragran) 1 tab DAILY PO Last administered on 07/20/18 09:35; Admin Dose 1 TAB; Start 07/20/18 at 09:00 Assessment/Plan Hospital Course (Demo Recall) IMP: 1. Acute on chronic hypoxemic and hypercapnic respiratory insufficiency 2. Possible aspiration pneumonia versus healthcare-associated pneumonia. 3. Mild volume overload. 4. History of paraplegia with prior tracheostomy. RECS: 1. Abx as per ID 2. Pulmonary toilet/suctioning/CPT 3. Noninvasive positive pressure ventilation prn 4. Elevate head of bed. 5. If continues to aspirate may require tracheostomy again. RODRÍGUEZ SONG MD, [facility] Jul 20, 2018 11:09
[2018-07-20] MEDS: metFORMIN 500 MG TAB PO SCH (11:58)
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
[2018-07-20] MEDS ORDERED: FUROSEMIDE 40 MG INJ IV ONE ×3 (13:00→20:00)
--- NOTE | 2018-07-20 16:34 | CONS ---
Assessment/Plan Assessment/Plan Hospital Course (Demo Recall) Alert, on Bipap, looks comfortable, no fevers Sacral wound culture grew MRSA, [place] albicans and Corynebacterium species Antimicrobials: none Allergies: Sulfa Rocephin nitrofurantoin Indwelling: Suprapubic catheter, colostomy, peripheral IV Physical examination: Well-developed chronically ill-appearing middle-aged man who is awake in no distress. Head atraumatic normocephalic sclera nonicteric. Neck is supple. Chest rise symmetrical breath sounds diminished bases. Heart: S1-S2. Abdomen soft, bowel sounds present. Extremities wasted without cyanosis. Assessment: 1. Acute hypoxemic respiratory failure, possible aspiration versus healthcare associated pneumonia===> treated 2. E. coli UTI 3. Paraplegia 4. Neurogenic bladder 5. Diabetes 6. Chronic decubitus ulcers Plan: Remains stable, completed abx, will f/u cxr. DW Dr Mckinnon Consultation Date/Type/Reason Admit Date/Time Jul 06, 2018 at 04:04 Initial Consult Date Type of Consult id Date/Time of Note DATE: 07/20/18 TIME: 16:33 Exam/Review of Systems Exam Vitals Vital Signs Date Temp Pulse Resp B/P (MAP) Pulse Ox O2 O2 Flow FiO2 Time Delivery Rate 07/20/18 105 20 97 Nasal 3.0 16:08 Cannula 07/20/18 98.0 110/69 15:57 (83) 07/20/18 40 14:00 Intake and Output 07/19/18 07/19/18 07/20/18 1515:00 23:00 07:00 IntakeIntake Total 1000 ml 250 ml OutputOutput Total 2300 ml 400 ml BalanceBalance -1300 ml -150 ml Results Result Diagram: 07/20/18 0536 07/20/18 0536 Results 24hrs Laboratory Tests Test 07/19/18 17:18 07/19/18 18:56 07/19/18 21:05 07/20/18 05:36 Bedside Glucose 155 133 Lactic Acid Level 3.0 *H Troponin I < 0.012 < 0.012 White Blood Count 4.4 L Red Blood Count 3.65 L Hemoglobin 11.0 L Hematocrit 34.3 L Mean Corpuscular Volume 94.0 Mean Corpuscular 30.1 Hemoglobin Mean Corpuscular 32.1 Hemoglobin Concent Red Cell Distribution 14.9 H Width Platelet Count 262 Mean Platelet Volume 10.4 Immature Granulocytes % 0.900 H Neutrophils % 66.8 Lymphocytes % 15.8 Monocytes % 14.2 H Eosinophils % 1.6 Basophils % 0.7 Nucleated Red Blood 0.0 Cells % Immature Granulocytes # 0.040 H Neutrophils # 2.9 Lymphocytes # 0.7 L Monocytes # 0.6 Eosinophils # 0.1 Basophils # 0.0 Nucleated Red Blood 0.0 Cells # Sodium Level 136 Potassium Level 4.8 Chloride Level 96 L Carbon Dioxide Level 30 Anion Gap 10 Blood Urea Nitrogen 27 H Creatinine 0.98 Est Glomerular Filtrat > 60 Rate mL/min Glucose Level 187 Calcium Level 9.4 Phosphorus Level 4.2 Magnesium Level 1.8 Total Bilirubin 0.8 Direct Bilirubin 0.00 Indirect Bilirubin 0.8 Aspartate Amino 33 Transf (AST/SGOT) Alanine 27 Aminotransferase (ALT/SG PT) Alkaline Phosphatase 93 Total Protein 8.2 H Albumin 3.9 Globulin 4.30 H Albumin/Globulin Ratio 0.90 Test 07/20/18 07:55 07/20/18 11:55 Bedside Glucose 126 169 Medications Medication Current Medications IV Flush (NS 3 ml) 3 ml PER PROTOCOL IV ; Start 07/06/18 at 05:00 Ondansetron HCl (Zofran Inj) 4 mg Q6H PRN IV NAUSEA/VOMITING; Start 07/06/18 at 05:00 Acetaminophen (Tylenol Tab) 650 mg Q6H PRN PO .PAIN 1-3 OR TEMP Last adm inistered on 07/11/18at 20:49; Admin Dose 650 MG; Start 07/06/18 at 05:00 Acetaminophen/ Hydrocodone Bitart ([place] (5/325)) 1 tab Q6H PRN PO .MOD PAIN 4- 6 Last administered on 07/12/18at 18:30; Admin Dose 1 TAB; Start 07/06/18 at 05:00 Acetaminophen/ Hydrocodone Bitart ([place] (5/325)) 2 tab Q6H PRN PO .SEVERE PAIN 7-10; Start 07/06/18 at 05:00 Heparin Sodium (Porcine) (Heparin (5000 Units/1ml)) 5,000 unit Q12 SC Last administered on 07/20/18at 09:55; Admin Dose 5,000 UNIT; Start 07/06/18 at 09:00 Ascorbic Acid (Vitamin C) 1,000 mg DAILY PO Last administered on 07/20/18 09:35; Admin Dose 1,000 MG; Start 07/06/18 at 09:00 Atorvastatin Calcium (Lipitor) 40 mg QHS PO Last administered on 07/19/18 21:01; Admin Dose 40 MG; Start 07/06/18 at 21:00 Baclofen (Lioresal) 20 mg TID PO Last administered on 07/20/18 12:37; Admin Dose 20 MG; Start 07/06/18 at 09:00 Fluticasone Propionate (Flonase 0.05% Nasal) 1 spray BID NASAL Last administered on 07/20/18 09:34; Admin Dose 1 SPRAY; Start 07/06/18 at 09:00 Hydroxyzine HCl (Atarax) 25 mg BID PRN PO ITCHING Last administered on 07/19/18 21:34; Admin Dose 25 MG; Start 07/06/18 at 05:00 Naproxen (Naprosyn) 500 mg BID PRN PO PAIN; Start 07/06/18 at 05:00 Miscellaneous Information (Pending Santyl Order For Wound Care) This patient lopez... PRN PRN XX WOUND CARE; Start 07/06/18 at 11:00 Collagenase (Santyl) 1 applic DAILY TOP Last administered on 07/20/18 09:34; Admin Dose 1 APPLIC; Start 07/08/18 at 09:00 Albuterol (Ventolin Hfa) 2 puff Q6H RESP THERAPY INH Last administered on 07/10/18 13:40; Admin Dose 2 PUFF; Start 07/07/18 at 17:00; Status Hold Insulin Aspart (Novolog Insulin Pen) NOVOLOG *MODERATE* ALGORITHM WITH MEALS BEDTIME SC Last administered on 07/20/18 12:15; Admin Dose 2 UNIT; Start 07/07/18 at 18:05 Miscellaneous Information 1 ea NOTE XX ; Start 07/09/18 at 17:30 Glucose (Glutose) 15 gm Q15M PRN PO DECREASED GLUCOSE; Start 07/09/18 at 17:30 Glucose (Glutose) 22.5 gm Q15M PRN PO DECREASED GLUCOSE; Start 07/09/18 at 17:30 Dextrose (D50w Syringe) 25 ml Q15M PRN IV DECREASED GLUCOSE; Start 07/09/18 at 17:30 Dextrose (D50w Syringe) 50 ml Q15M PRN IV DECREASED GLUCOSE; Start 07/09/18 at 17:30 Glucagon (Glucagen) 1 mg Q15M PRN IM DECREASED GLUCOSE; Start 07/09/18 at 17:30 Glucose (Glutose) 15 gm Q15M PRN BUCCAL DECREASED GLUCOSE; Start 07/09/18 at 17:30 Famotidine (Pepcid) 20 mg HS PO Last administered on 07/19/18at 21:02; Admin Dose 20 MG; Start 07/10/18 at 21:00 Guaifenesin/ Dextromethorphan (Robitussin Dm Liquid Cup) 10 ml Q4H PRN PO COUGH; Start 07/10/18 at 14:00 Potassium Chloride (Potassium Chloride Pwd/Soln) 40 meq DAILY PO Last administered on 07/20/18 09:35; Admin Dose 40 MEQ; Start 07/10/18 at 14:00 Zinc Sulfate (Zinc Sulfate) 220 mg DAILY PO Last administered on 07/20/18 09:35; Admin Dose 220 MG; Start 07/20/18 at 09:00 Multivitamins Therapeutic (Theragran) 1 tab DAILY PO Last administered on 07/20/18 09:35; Admin Dose 1 TAB; Start 07/20/18 at 09:00 Acetylcysteine (Mucomyst) 1 ml Q8H RESP THERAPY NEB Last administered on 07/20/18 16:00; Admin Dose 1 ML; Start 07/20/18 at 16:00 Albuterol (Proventil 0.083% (Neb)) 2.5 mg Q8H RESP THERAPY NEB Last administered on 07/20/18 16:00; Admin Dose 2.5 MG; Start 07/20/18 at 16:00 Metformin HCl (Glucophage) 500 mg WITH LUNCH PO ; Start 07/25/18 at 12:00 Furosemide (Lasix) 40 mg ONCE ONCE IV ; Start 07/20/18 at 20:00; Stop 07/20/18 at 20:01 MALIKA FISHER NP Jul 20, 2018 16:34
--- NOTE | 2018-07-20 17:57 | RADRPT ---
Vent Rate: 83 bpm RR Interval: 0 msec KS Interval: 168 msec QRS Duration: 100 msec QT Interval: 382 msec QTC Interval: 448 msec P-R-T Max: 51 - 62 - 81 degrees Normal sinus rhythm Biatrial enlargement Left ventricular hypertrophy ST elevation, consider early repolarization, pericarditis, or injury Abnormal ECG Electronically Signed By: Antonino Monteiro
[2018-07-20] MEDS: FAMOTIDINE 20 MG TAB PO SCH (23:13)
[2018-07-20] MEDS: ATORVASTATIN 40 MG TAB PO SCH (23:13)
[2018-07-21] VITALS (11 sets, daily range): BP systolic 75–158; BP diastolic 52–82; PULSE 65–97; RESP 16–19
[2018-07-21] MEDS: ACETYLCYSTEINE 20% 4 ML VIAL NEB SCH ×2 (07:58→16:07)
[2018-07-21] MEDS: ALBUTEROL 0.083% (NEB) 2.5 MG/3 ML AMP NEB SCH ×2 (07:58→16:06)
[2018-07-21] MEDS: INSULIN ASPART [NOVOLOG] 3 ML PEN SC SCH ×4 (08:21→22:02)
[2018-07-21] MEDS: ZINC SULFATE 220 MG CAP PO SCH (08:22)
[2018-07-21] MEDS: BACLOFEN 10 MG TAB PO SCH ×3 (08:22→23:00)
[2018-07-21] MEDS: ASCORBIC ACID 500 MG TAB PO SCH (08:22)
[2018-07-21] MEDS: MULTIVITAMINS THERAPEUTIC TAB PO SCH (08:22)
[2018-07-21] MEDS: COLLAGENASE 5 GM (UD JAR) TOP SCH (08:23)
[2018-07-21] MEDS: FLUTICASONE 0.05% 16 GM NAS SPRAY NASAL SCH ×2 (08:23→21:00)
[2018-07-21] MEDS: POTASSIUM CHLORIDE 20 MEQ POWDER FOR ORAL SOLN PO SCH (08:24)
[2018-07-21] MEDS: BALSAM PERU/CASTOR OIL 60 GM TUBE TOP SCH ×2 (08:25→23:01)
[2018-07-21] MEDS: HEPARIN 5,000 UNIT/1 ML VIAL SC SCH ×2 (08:26→22:01)
--- NOTE | 2018-07-21 11:50 | CONS ---
Consult Date/Type/Reason Admit Date/Time Jul 06, 2018 at 04:04 Initial Consult Date Type of Consult Pulmonary Date/Time of Note DATE: 07/21/18 TIME: 11:50 Subjective Patient significantly better today now on nasal cannula no respiratory distress. Objective Vital Signs Date Temp Pulse Resp B/P (MAP) Pulse Ox O2 O2 Flow FiO2 Time Delivery Rate 07/21/18 86 08:05 07/21/18 97.7 16 75/56 (62) 100 08:00 07/21/18 Nasal 3.0 08:00 Cannula 07/21/18 40 03:17 Intake and Output 07/20/18 07/20/18 07/21/18 1515:00 23:00 07:00 IntakeIntake Total 700 ml 480 ml OutputOutput Total 2600 ml 1200 ml BalanceBalance -1900 ml -720 ml Exam GENERAL: Chronically ill-appearing gentleman on bilevel ventilation. VITAL SIGNS: per chart previous tracheostomy site NECK: Supple. No JVD or lymphadenopathy. CARDIAC EXAM: S1, S2. No added sounds or murmurs. CHEST: Diminished air entry bilaterally ABDOMEN: Soft, nontender. No guarding or rebound. EXTREMITIES: No cyanosis, clubbing or edema. NEUROLOGIC: Contractures Vent Setting Fraction of Inspired Oxygen pe: 30 Results/Medications Result Diagram: 07/21/1851907/21/18519 Results 24 hrs Laboratory Tests Test 07/20/18 11:55 07/20/18 17:36 07/20/18 22:44 07/21/18 05:20 Bedside Glucose 169 174 169 White Blood Count 4.7 L Red Blood Count 3.59 L Hemoglobin 10.7 L Hematocrit 33.6 L Mean Corpuscular 93.6 Volume Mean Corpuscular 29.8 Hemoglobin Mean Corpuscular 31.8 L Hemoglobin Concen t Red Cell 14.9 H Distribution Width Platelet Count 268 Mean Platelet 10.7 H Volume Immature 0.900 H Granulocytes % Neutrophils % 63.0 Lymphocytes % 18.9 Monocytes % 15.2 H Eosinophils % 1.1 Basophils % 0.9 Nucleated Red 0.0 Blood Cells % Immature 0.040 H Granulocytes # Neutrophils # 2.9 Lymphocytes # 0.9 Monocytes # 0.7 Eosinophils # 0.1 Basophils # 0.0 Nucleated Red 0.0 Blood Cells # Sodium Level 137 Potassium Level 5.5 H Chloride Level 99 Carbon Dioxide 28 Level Anion Gap 10 Blood Urea 31 H Nitrogen Creatinine 1.42 H Est Glomerular 52 L Filtrat Rate mL/min Glucose Level 137 # Calcium Level 9.3 Phosphorus Level 4.9 Magnesium Level 2.0 Test 07/21/18 07:00 07/21/18 07:59 Blood Gas Blood arterial Specimen Source Arterial Blood 07/21/2018 7:19:10 Date Drawn AM Arterial Blood pH 7.411 (Temp corrected) Arterial Blood 47.6 H pCO2 (Temp correct) Arterial Blood 80.4 pO2 (Temp corrected) Arterial Blood 29.6 H HCO3 Arterial Blood 4.2 H Base Excess Arterial Blood 95.2 Oxygen Saturation Los Test ACCEPTAB Arterial Blood Right Radial Gas Puncture Site Arterial 0.3 Blood Carboxyhemo globin Arterial Blood 0.3 Methemoglobin Blood Gas A-a O2 77.6 H Differential Oxyhemoglobin 94.6 Percent Blood Gas 37.0 Temperature Blood Gas NASAL CANNULA Modality FiO2 30.0 Blood Gas TM Notified Whom Blood Gas 07/21/2018 7:29:42 Notified Time AM Bedside Glucose 177 Medications Current Medications IV Flush (NS 3 ml) 3 ml PER PROTOCOL IV ; Start 07/06/18 at 05:00 Ondansetron HCl (Zofran Inj) 4 mg Q6H PRN IV NAUSEA/VOMITING; Start 07/06/18 at 05:00 Acetaminophen (Tylenol Tab) 650 mg Q6H PRN PO .PAIN 1-3 OR TEMP Last administered on 07/11/18at 20:49; Admin Dose 650 MG; Start 07/06/18 at 05:00 Acetaminophen/ Hydrocodone Bitart ([place] (5/325)) 1 tab Q6H PRN PO .MOD PAIN 4- 6 Last administered on 07/12/18at 18:30; Admin Dose 1 TAB; Start 07/06/18 at 05:00 Acetaminophen/ Hydrocodone Bitart ([place] (5/325)) 2 tab Q6H PRN PO .SEVERE PAIN 7-10; Start 07/06/18 at 05:00 Heparin Sodium (Porcine) (Heparin (5000 Units/1ml)) 5,000 unit Q12 SC Last administered on 07/21/18at 08:26; Admin Dose 5,000 UNIT; Start 07/06/18 at 09:00 Ascorbic Acid (Vitamin C) 1,000 mg DAILY PO Last administered on 07/21/18 08:22; Admin Dose 1,000 MG; Start 07/06/18 at 09:00 Atorvastatin Calcium (Lipitor) 40 mg QHS PO Last administered on 07/20/18 23:13; Admin Dose 40 MG; Start 07/06/18 at 21:00 Baclofen (Lioresal) 20 mg TID PO Last administered on 07/21/18 08:22; Admin Dose 20 MG; Start 07/06/18 at 09:00 Fluticasone Propionate (Flonase 0.05% Nasal) 1 spray BID NASAL Last administered on 07/21/18 08:23; Admin Dose 1 SPRAY; Start 07/06/18 at 09:00 Hydroxyzine HCl (Atarax) 25 mg BID PRN PO ITCHING Last administered on 07/19/18 21:34; Admin Dose 25 MG; Start 07/06/18 at 05:00 Naproxen (Naprosyn) 500 mg BID PRN PO PAIN; Start 07/06/18 at 05:00 Miscellaneous Information (Pending Santyl Order For Wound Care) This patient lopez... PRN PRN XX WOUND CARE; Start 07/06/18 at 11:00 Collagenase (Santyl) 1 applic DAILY TOP Last administered on 07/21/18 08:23; Admin Dose 1 APPLIC; Start 07/08/18 at 09:00 Albuterol (Ventolin Hfa) 2 puff Q6H RESP THERAPY INH Last administered on 07/10/18 13:40; Admin Dose 2 PUFF; Start 07/07/18 at 17:00; Status Hold Insulin Aspart (Novolog Insulin Pen) NOVOLOG *MODERATE* ALGORITHM WITH MEALS BEDTIME SC Last administered on 07/21/18 08:21; Admin Dose 2 UNIT; Start 07/07/18 at 18:05 Miscellaneous Information 1 ea NOTE XX ; Start 07/09/18 at 17:30 Glucose (Glutose) 15 gm Q15M PRN PO DECREASED GLUCOSE; Start 07/09/18 at 17:30 Glucose (Glutose) 22.5 gm Q15M PRN PO DECREASED GLUCOSE; Start 07/09/18 at 17:30 Dextrose (D50w Syringe) 25 ml Q15M PRN IV DECREASED GLUCOSE; Start 07/09/18 at 17:30 Dextrose (D50w Syringe) 50 ml Q15M PRN IV DECREASED GLUCOSE; Start 07/09/18 at 17:30 Glucagon (Glucagen) 1 mg Q15M PRN IM DECREASED GLUCOSE; Start 07/09/18 at 17:30 Glucose (Glutose) 15 gm Q15M PRN BUCCAL DECREASED GLUCOSE; Start 07/09/18 at 17:30 Famotidine (Pepcid) 20 mg HS PO Last administered on 07/20/18at 23:13; Admin Dose 20 MG; Start 07/10/18 at 21:00 Guaifenesin/ Dextromethorphan (Robitussin Dm Liquid Cup) 10 ml Q4H PRN PO COUGH; Start 07/10/18 at 14:00 Potassium Chloride (Potassium Chloride Pwd/Soln) 40 meq DAILY PO Last administered on 07/20/18at 09:35; Admin Dose 40 MEQ; Start 07/10/18 at 14:00 Zinc Sulfate (Zinc Sulfate) 220 mg DAILY PO Last administered on 07/21/18at 08:22; Admin Dose 220 MG; Start 07/20/18 at 09:00 Multivitamins Therapeutic (Theragran) 1 tab DAILY PO Last administered on 07/21/18at 08:22; Admin Dose 1 TAB; Start 07/20/18 at 09:00 Acetylcysteine (Mucomyst) 1 ml Q8H RESP THERAPY NEB Last administered on 07/21/18at 07:58; Admin Dose 1 ML; Start 07/20/18 at 16:00 Albuterol (Proventil 0.083% (Neb)) 2.5 mg Q8H RESP THERAPY NEB Last administered on 07/21/18at 07:58; Admin Dose 2.5 MG; Start 07/20/18 at 16:00 Metformin HCl (Glucophage) 500 mg WITH LUNCH PO ; Start 07/25/18 at 12:00 Assessment/Plan Hospital Course (Demo Recall) IMP: 1. Acute on chronic hypoxemic and hypercapnic respiratory insufficiency 2. Possible aspiration pneumonia versus healthcare-associated pneumonia. 3. Mild volume overload. 4. History of paraplegia with prior tracheostomy. RECS: 1. Abx as per ID 2. Pulmonary toilet/suctioning/CPT 3. Noninvasive positive pressure ventilation prn 4. Elevate head of bed. DC planning okay from pulmonary standpoint RODRÍGUEZ SONG MD, [facility] Jul 21, 2018 11:50
--- NOTE | 2018-07-21 13:38 | CONS ---
Assessment/Plan Assessment/Plan Hospital Course (Demo Recall) Alert, looks comfortable, no fevers Sacral wound culture grew MRSA, Maricruz albicans and Corynebacterium species Antimicrobials: none Allergies: Sulfa Rocephin nitrofurantoin Indwelling: Suprapubic catheter, colostomy, peripheral IV Physical examination: Well-developed chronically ill-appearing middle-aged man who is awake in no distress. Head atraumatic normocephalic sclera nonicteric. Neck is supple. Chest rise symmetrical breath sounds diminished bases. Heart: S1-S2. Abdomen soft, bowel sounds present. Extremities wasted without cyanosis. Assessment: 1. Acute hypoxemic respiratory failure, possible aspiration versus healthcare associated pneumonia===> treated 2. E. coli UTI 3. Paraplegia 4. Neurogenic bladder 5. Diabetes 6. Chronic decubitus ulcers Plan: CT chest noted, pt completed abx, will monitor, f/u pulmonary rec-s Consultation Date/Type/Reason Admit Date/Time Jul 06, 2018 at 04:04 Initial Consult Date Type of Consult id Date/Time of Note DATE: 07/21/18 TIME: 13:37 Exam/Review of Systems Exam Vitals Vital Signs Date Temp Pulse Resp B/P (MAP) Pulse Ox O2 O2 Flow FiO2 Time Delivery Rate 07/21/18 89 12:49 07/21/18 97.7 18 78/52 (61) 100 Nasal 11:15 Cannula 07/21/18 3.0 08:00 07/21/18 40 03:17 Intake and Output 07/20/18 07/20/18 07/21/18 1515:00 23:00 07:00 IntakeIntake Total 700 ml 480 ml OutputOutput Total 2600 ml 1200 ml BalanceBalance -1900 ml -720 ml Results Result Diagram: 07/21/18 0520 07/21/18 0520 Results 24hrs Laboratory Tests Test 07/20/18 17:36 07/20/18 22:44 07/21/18 05:20 07/21/18 07:00 Bedside Glucose 174 169 White Blood Count 4.7 L Red Blood Count 3.59 L Hemoglobin 10.7 L Hematocrit 33.6 L Mean Corpuscular 93.6 Volume Mean Corpuscular 29.8 Hemoglobin Mean Corpuscular 31.8 L Hemoglobin Concen t Red Cell 14.9 H Distribution Width Platelet Count 268 Mean Platelet 10.7 H Volume Immature 0.900 H Granulocytes % Neutrophils % 63.0 Lymphocytes % 18.9 Monocytes % 15.2 H Eosinophils % 1.1 Basophils % 0.9 Nucleated Red 0.0 Blood Cells % Immature 0.040 H Granulocytes # Neutrophils # 2.9 Lymphocytes # 0.9 Monocytes # 0.7 Eosinophils # 0.1 Basophils # 0.0 Nucleated Red 0.0 Blood Cells # Sodium Level 137 Potassium Level 5.5 H Chloride Level 99 Carbon Dioxide 28 Level Anion Gap 10 Blood Urea 31 H Nitrogen Creatinine 1.42 H Est Glomerular 52 L Filtrat Rate mL/min Glucose Level 137 # Calcium Level 9.3 Phosphorus Level 4.9 Magnesium Level 2.0 Blood Gas Blood arterial Specimen Source Arterial Blood 07/21/2018 7:19:1 Date Drawn 0 AM Arterial Blood pH 7.411 (Temp corrected) Arterial Blood 47.6 H pCO2 (Temp correct) Arterial Blood 80.4 pO2 (Temp corrected) Arterial Blood 29.6 H HCO3 Arterial Blood 4.2 H Base Excess Arterial Blood 95.2 Oxygen Saturation Los Test ACCEPTAB Arterial Blood Right Radial Gas Puncture Site Arterial 0.3 Blood Carboxyhemo globin Arterial Blood 0.3 Methemoglobin Blood Gas A-a O2 77.6 H Differential Oxyhemoglobin 94.6 Percent Blood Gas 37.0 Temperature Blood Gas NASAL CANNULA Modality FiO2 30.0 Blood Gas TM Notified Whom Blood Gas 07/21/2018 7:29:4 Notified Time 2 AM Test 07/21/18 07:59 07/21/18 11:49 Bedside Glucose 177 239 H Medications Medication Current Medications IV Flush (NS 3 ml) 3 ml PER PROTOCOL IV ; Start 07/06/18 at 05:00 Ondansetron HCl (Zofran Inj) 4 mg Q6H PRN IV NAUSEA/VOMITING; Start 07/06/18 at 05:00 Acetaminophen (Tylenol Tab) 650 mg Q6H PRN PO .PAIN 1-3 OR TEMP Last administered on 07/11/18at 20:49; Admin Dose 650 MG; Start 07/06/18 at 05:00 Acetaminophen/ Hydrocodone Bitart ([place] (5/325)) 1 tab Q6H PRN PO .MOD PAIN 4- 6 Last administered on 07/12/18at 18:30; Admin Dose 1 TAB; Start 07/06/18 at 05:00 Acetaminophen/ Hydrocodone Bitart ([place] (5/325)) 2 tab Q6H PRN PO .SEVERE PAIN 7-10; Start 07/06/18 at 05:00 Heparin Sodium (Porcine) (Heparin (5000 Units/1ml)) 5,000 unit Q12 SC Last administered on 07/21/18 08:26; Admin Dose 5,000 UNIT; Start 07/06/18 at 09:00 Ascorbic Acid (Vitamin C) 1,000 mg DAILY PO Last administered on 07/21/18 08:22; Admin Dose 1,000 MG; Start 07/06/18 at 09:00 Atorvastatin Calcium (Lipitor) 40 mg QHS PO Last administered on 07/20/18 23:13; Admin Dose 40 MG; Start 07/06/18 at 21:00 Baclofen (Lioresal) 20 mg TID PO Last administered on 07/21/18 08:22; Admin Dose 20 MG; Start 07/06/18 at 09:00 Fluticasone Propionate (Flonase 0.05% Nasal) 1 spray BID NASAL Last administered on 07/21/18 08:23; Admin Dose 1 SPRAY; Start 07/06/18 at 09:00 Hydroxyzine HCl (Atarax) 25 mg BID PRN PO ITCHING Last administered on 07/19/18 21:34; Admin Dose 25 MG; Start 07/06/18 at 05:00 Naproxen (Naprosyn) 500 mg BID PRN PO PAIN; Start 07/06/18 at 05:00 Miscellaneous Information (Pending Santyl Order For Wound Care) This patient lopez... PRN PRN XX WOUND CARE; Start 07/06/18 at 11:00 Collagenase (Santyl) 1 applic DAILY TOP Last administered on 07/21/18 08:23; Admin Dose 1 APPLIC; Start 07/08/18 at 09:00 Albuterol (Ventolin Hfa) 2 puff Q6H RESP THERAPY INH Last administered on 07/10/18 13:40; Admin Dose 2 PUFF; Start 07/07/18 at 17:00; Status Hold Insulin Aspart (Novolog Insulin Pen) NOVOLOG *MODERATE* ALGORITHM WITH MEALS BEDTIME SC Last administered on 07/21/18 11:54; Admin Dose 6 UNIT; Start 07/07/18 at 18:05 Miscellaneous Information 1 ea NOTE XX ; Start 07/09/18 at 17:30 Glucose (Glutose) 15 gm Q15M PRN PO DECREASED GLUCOSE; Start 07/09/18 at 17:30 Glucose (Glutose) 22.5 gm Q15M PRN PO DECREASED GLUCOSE; Start 07/09/18 at 17:30 Dextrose (D50w Syringe) 25 ml Q15M PRN IV DECREASED GLUCOSE; Start 07/09/18 at 17:30 Dextrose (D50w Syringe) 50 ml Q15M PRN IV DECREASED GLUCOSE; Start 07/09/18 at 17:30 Glucagon (Glucagen) 1 mg Q15M PRN IM DECREASED GLUCOSE; Start 07/09/18 at 17:30 Glucose (Glutose) 15 gm Q15M PRN BUCCAL DECREASED GLUCOSE; Start 07/09/18 at 17:30 Famotidine (Pepcid) 20 mg HS PO Last administered on 07/20/18at 23:13; Admin Dose 20 MG; Start 07/10/18 at 21:00 Guaifenesin/ Dextromethorphan (Robitussin Dm Liquid Cup) 10 ml Q4H PRN PO COUGH; Start 07/10/18 at 14:00 Potassium Chloride (Potassium Chloride Pwd/Soln) 40 meq DAILY PO Last administered on 07/20/18at 09:35; Admin Dose 40 MEQ; Start 07/10/18 at 14:00 Zinc Sulfate (Zinc Sulfate) 220 mg DAILY PO Last administered on 07/21/18 08:22; Admin Dose 220 MG; Start 07/20/18 at 09:00 Multivitamins Therapeutic (Theragran) 1 tab DAILY PO Last administered on 07/21/18 08:22; Admin Dose 1 TAB; Start 07/20/18 at 09:00 Acetylcysteine (Mucomyst) 1 ml Q8H RESP THERAPY NEB Last administered on 07/21/18at 07:58; Admin Dose 1 ML; Start 07/20/18 at 16:00 Albuterol (Proventil 0.083% (Neb)) 2.5 mg Q8H RESP THERAPY NEB Last administered on 07/21/18 07:58; Admin Dose 2.5 MG; Start 07/20/18 at 16:00 Metformin HCl (Glucophage) 500 mg WITH LUNCH PO ; Start 07/25/18 at 12:00 MALIKA FISHER NP Jul 21, 2018 13:38
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
[2018-07-21] MEDS: ALBUTEROL 0.083% (NEB) 2.5 MG/3 ML AMP HHN PRN (20:52)
[2018-07-21] MEDS: FAMOTIDINE 20 MG TAB PO SCH (23:00)
[2018-07-21] MEDS: ATORVASTATIN 40 MG TAB PO SCH (23:00)
[2018-07-22] VITALS (9 sets, daily range): BP systolic 73–110; BP diastolic 51–76; PULSE 66–92; RESP 18–22
[2018-07-22] MEDS: ALBUTEROL/IPRATROPIUM (NEB) 3 ML AMP HHN SCH ×3 (00:22→16:13)
[2018-07-22] MEDS: ACETYLCYSTEINE 20% 4 ML VIAL NEB SCH ×3 (00:22→16:13)
[2018-07-22] MEDS: HYDROCODONE/APAP (5/325) TAB PO PRN (02:37)
[2018-07-22] MEDS: FLUTICASONE 0.05% 16 GM NAS SPRAY NASAL SCH ×2 (09:00→21:00)
[2018-07-22] MEDS: INSULIN ASPART [NOVOLOG] 3 ML PEN SC SCH ×4 (10:06→21:33)
[2018-07-22] MEDS: HEPARIN 5,000 UNIT/1 ML VIAL SC SCH ×2 (10:07→21:32)
[2018-07-22] MEDS: BACLOFEN 10 MG TAB PO SCH ×3 (10:08→21:31)
[2018-07-22] MEDS: POTASSIUM CHLORIDE 20 MEQ POWDER FOR ORAL SOLN PO SCH (10:09)
[2018-07-22] MEDS: ASCORBIC ACID 500 MG TAB PO SCH (10:09)
[2018-07-22] MEDS: ZINC SULFATE 220 MG CAP PO SCH (10:09)
[2018-07-22] MEDS: COLLAGENASE 5 GM (UD JAR) TOP SCH (10:09)
[2018-07-22] MEDS: MULTIVITAMINS THERAPEUTIC TAB PO SCH (10:09)
[2018-07-22] MEDS: BALSAM PERU/CASTOR OIL 60 GM TUBE TOP SCH ×2 (10:10→22:03)
--- NOTE | 2018-07-22 10:29 | CONS ---
Consult Date/Type/Reason Admit Date/Time Jul 06, 2018 at 04:04 Initial Consult Date Type of Consult Pulmonary Date/Time of Note DATE: 07/22/18 TIME: 10:29 Subjective Patient comfortable this point. No respiratory distress. Objective Vital Signs Date Temp Pulse Resp B/P (MAP) Pulse Ox O2 O2 Flow FiO2 Time Delivery Rate 07/22/18 83 18 98 Nasal 2.0 09:18 Cannula 07/22/18 97.1 82/51 (61) 08:20 07/21/18 40 21:05 Intake and Output 07/21/18 07/21/18 07/22/18 1515:00 23:00 07:00 IntakeIntake Total 360 ml 740 ml 440 ml OutputOutput Total 950 ml 925 ml BalanceBalance 360 ml -210 ml -485 ml Exam GENERAL: Chronically ill-appearing gentleman on nasal cannula O2. VITAL SIGNS: per chart previous tracheostomy site NECK: Supple. No JVD or lymphadenopathy. CARDIAC EXAM: S1, S2. No added sounds or murmurs. CHEST: Diminished air entry bilaterally ABDOMEN: Soft, nontender. No guarding or rebound. EXTREMITIES: No cyanosis, clubbing or edema. NEUROLOGIC: Contractures Vent Setting Fraction of Inspired Oxygen pe: 30 Results/Medications Result Diagram: 07/21/1851907/21/18519 Results 24 hrs Laboratory Tests Test 07/21/18 11:49 07/21/18 17:24 07/21/18 21:44 07/22/18 03:20 Bedside Glucose 239 H 170 197 198 Test 07/22/18 09:49 Bedside Glucose 183 Medications Current Medications IV Flush (NS 3 ml) 3 ml PER PROTOCOL IV ; Start 07/06/18 at 05:00 Ondansetron HCl (Zofran Inj) 4 mg Q6H PRN IV NAUSEA/VOMITING; Start 07/06/18 at 05:00 Acetaminophen (Tylenol Tab) 650 mg Q6H PRN PO .PAIN 1-3 OR TEMP Last ad ministered on 07/11/18at 20:49; Admin Dose 650 MG; Start 07/06/18 at 05:00 Acetaminophen/ Hydrocodone Bitart ([place] (5/325)) 1 tab Q6H PRN PO .MOD PAIN 4- 6 Last administered on 07/22/18at 02:37; Admin Dose 1 TAB; Start 07/06/18 at 05:00 Acetaminophen/ Hydrocodone Bitart ([place] (5/325)) 2 tab Q6H PRN PO .SEVERE PAIN 7-10; Start 07/06/18 at 05:00 Heparin Sodium (Porcine) (Heparin (5000 Units/1ml)) 5,000 unit Q12 SC Last administered on 07/22/18 10:07; Admin Dose 5,000 UNIT; Start 07/06/18 at 09:00 Ascorbic Acid (Vitamin C) 1,000 mg DAILY PO Last administered on 07/22/18 10:09; Admin Dose 1,000 MG; Start 07/06/18 at 09:00 Atorvastatin Calcium (Lipitor) 40 mg QHS PO Last administered on 07/21/18 23:00; Admin Dose 40 MG; Start 07/06/18 at 21:00 Baclofen (Lioresal) 20 mg TID PO Last administered on 07/22/18 10:08; Admin Dose 20 MG; Start 07/06/18 at 09:00 Fluticasone Propionate (Flonase 0.05% Nasal) 1 spray BID NASAL Last administered on 07/21/18 08:23; Admin Dose 1 SPRAY; Start 07/06/18 at 09:00 Hydroxyzine HCl (Atarax) 25 mg BID PRN PO ITCHING Last administered on 07/19/18 21:34; Admin Dose 25 MG; Start 07/06/18 at 05:00 Naproxen (Naprosyn) 500 mg BID PRN PO PAIN; Start 07/06/18 at 05:00 Miscellaneous Information (Pending Santyl Order For Wound Care) This patient lopez... PRN PRN XX WOUND CARE; Start 07/06/18 at 11:00 Collagenase (Santyl) 1 applic DAILY TOP Last administered on 07/22/18 10:09; Admin Dose 1 APPLIC; Start 07/08/18 at 09:00 Insulin Aspart (Novolog Insulin Pen) NOVOLOG *MODERATE* ALGORITHM WITH MEALS BEDTIME SC Last administered on 07/22/18 10:06; Admin Dose 4 UNIT; Start 07/07/18 at 18:05 Miscellaneous Information 1 ea NOTE XX ; Start 07/09/18 at 17:30 Glucose (Glutose) 15 gm Q15M PRN PO DECREASED GLUCOSE; Start 07/09/18 at 17:30 Glucose (Glutose) 22.5 gm Q15M PRN PO DECREASED GLUCOSE; Start 07/09/18 at 17:30 Dextrose (D50w Syringe) 25 ml Q15M PRN IV DECREASED GLUCOSE; Start 07/09/18 at 17:30 Dextrose (D50w Syringe) 50 ml Q15M PRN IV DECREASED GLUCOSE; Start 07/09/18 at 17:30 Glucagon (Glucagen) 1 mg Q15M PRN IM DECREASED GLUCOSE; Start 07/09/18 at 17:30 Glucose (Glutose) 15 gm Q15M PRN BUCCAL DECREASED GLUCOSE; Start 07/09/18 at 17:30 Famotidine (Pepcid) 20 mg HS PO Last administered on 07/21/18at 23:00; Admin Dose 20 MG; Start 07/10/18 at 21:00 Guaifenesin/ Dextromethorphan (Robitussin Dm Liquid Cup) 10 ml Q4H PRN PO COUGH; Start 07/10/18 at 14:00 Potassium Chloride (Potassium Chloride Pwd/Soln) 40 meq DAILY PO Last admi nistered on 07/22/18at 10:09; Admin Dose 40 MEQ; Start 07/10/18 at 14:00 Zinc Sulfate (Zinc Sulfate) 220 mg DAILY PO Last administered on 07/22/18 10:09; Admin Dose 220 MG; Start 07/20/18 at 09:00 Multivitamins Therapeutic (Theragran) 1 tab DAILY PO Last administered on 07/22/18 10:09; Admin Dose 1 TAB; Start 07/20/18 at 09:00 Acetylcysteine (Mucomyst) 1 ml Q8H RESP THERAPY NEB Last administered on 07/22/18at 09:18; Admin Dose 1 ML; Start 07/20/18 at 16:00 Metformin HCl (Glucophage) 500 mg WITH LUNCH PO ; Start 07/25/18 at 12:00 Albuterol/ Ipratropium (Duoneb) 3 ml Q8H RESP THERAPY HHN Last administered on 07/22/18at 09:18; Admin Dose 3 ML; Start 07/22/18 at 00:00 Albuterol (Proventil 0.083% (Neb)) 1.25 mg Q2H RESP THERAPY PRN HHN WHEEZING AND SOB Last administered on 4/10/19at 20:52; Admin Dose 1.25 MG; Start 07/21/18 at 18:00 Assessment/Plan Hospital Course (Demo Recall) IMP: 1. Acute on chronic hypoxemic and hypercapnic respiratory insufficiency 2. Possible aspiration pneumonia versus healthcare-associated pneumonia. 3. Mild volume overload. 4. History of paraplegia with prior tracheostomy. RECS: 1. Abx as per ID 2. Pulmonary toilet/suctioning/CPT 3. Noninvasive positive pressure ventilation prn 4. Elevate head of bed. DC planning okay from pulmonary standpoint RODRÍGUEZ SONG MD, [facility] Jul 22, 2018 10:29
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
--- NOTE | 2018-07-22 12:45 | CONS ---
Assessment/Plan Assessment/Plan Hospital Course (Demo Recall) Alert, no fevers Sacral wound culture grew MRSA, Maricruz albicans and Corynebacterium species Antimicrobials: none Allergies: Sulfa Rocephin nitrofurantoin Indwelling: Suprapubic catheter, colostomy, peripheral IV Physical examination: Well-developed chronically ill-appearing middle-aged man who is awake in no distress. Head atraumatic normocephalic sclera nonicteric. Neck is supple. Chest rise symmetrical breath sounds diminished bases. Heart: S1-S2. Abdomen soft, bowel sounds present. Extremities wasted without cyanosis. Assessment: 1. Acute hypoxemic respiratory failure, possible aspiration versus healthcare associated pneumonia===> treated 2. E. coli UTI 3. Paraplegia 4. Neurogenic bladder 5. Diabetes 6. Chronic decubitus ulcers Plan: Patient remains stable off antibiotics, pending discharge arrangements Consultation Date/Type/Reason Admit Date/Time Jul 06, 2018 at 04:04 Initial Consult Date Type of Consult id Date/Time of Note DATE: 07/22/18 TIME: 12:44 Exam/Review of Systems Exam Vitals Vital Signs Date Temp Pulse Resp B/P (MAP) Pulse Ox O2 O2 Flow FiO2 Time Delivery Rate 07/22/18 83 18 98 Nasal 2.0 09:18 Cannula 07/22/18 97.1 82/51 (61) 08:20 07/21/18 40 21:05 Intake and Output 07/21/18 07/21/18 07/22/18 1515:00 23:00 07:00 IntakeIntake Total 360 ml 740 ml 440 ml OutputOutput Total 950 ml 925 ml BalanceBalance 360 ml -210 ml -485 ml Results Result Diagram: 07/21/18 0520 07/21/18 0520 Results 24hrs Laboratory Tests Test 07/21/18 17:24 07/21/18 21:44 07/22/18 03:20 07/22/18 09:49 Bedside Glucose 170 197 198 183 Test 07/22/18 12:32 Bedside Glucose 260 H Medications Medication Current Medications IV Flush (NS 3 ml) 3 ml PER PROTOCOL IV ; Start 07/06/18 at 05:00 Ondansetron HCl (Zofran Inj) 4 mg Q6H PRN IV NAUSEA/VOMITING; Start 07/06/18 at 05:00 Acetaminophen (Tylenol Tab) 650 mg Q6H PRN PO .PAIN 1-3 OR TEMP Last administered on 07/11/18 20:49; Admin Dose 650 MG; Start 07/06/18 at 05:00 Acetaminophen/ Hydrocodone Bitart ([place] (5/325)) 1 tab Q6H PRN PO .MOD PAIN 4- 6 Last administered on 07/22/18 02:37; Admin Dose 1 TAB; Start 07/06/18 at 05:00 Acetaminophen/ Hydrocodone Bitart ([place] (5/325)) 2 tab Q6H PRN PO .SEVERE PAIN 7-10; Start 07/06/18 at 05:00 Heparin Sodium (Porcine) (Heparin (5000 Units/1ml)) 5,000 unit Q12 SC Last administered on 07/22/18 10:07; Admin Dose 5,000 UNIT; Start 07/06/18 at 09:00 Ascorbic Acid (Vitamin C) 1,000 mg DAILY PO Last administered on 07/22/18 10:09; Admin Dose 1,000 MG; Start 07/06/18 at 09:00 Atorvastatin Calcium (Lipitor) 40 mg QHS PO Last administered on 07/21/18 23:00; Admin Dose 40 MG; Start 07/06/18 at 21:00 Baclofen (Lioresal) 20 mg TID PO Last administered on 07/22/18 12:41; Admin Dose 20 MG; Start 07/06/18 at 09:00 Fluticasone Propionate (Flonase 0.05% Nasal) 1 spray BID NASAL Last administered on 07/21/18 08:23; Admin Dose 1 SPRAY; Start 07/06/18 at 09:00 Hydroxyzine HCl (Atarax) 25 mg BID PRN PO ITCHING Last administered on 07/19/18 21:34; Admin Dose 25 MG; Start 07/06/18 at 05:00 Naproxen (Naprosyn) 500 mg BID PRN PO PAIN; Start 07/06/18 at 05:00 Miscellaneous Information (Pending Santyl Order For Wound Care) This patient lopez... PRN PRN XX WOUND CARE; Start 07/06/18 at 11:00 Collagenase (Santyl) 1 applic DAILY TOP Last administered on 07/22/18 10:09; Admin Dose 1 APPLIC; Start 07/08/18 at 09:00 Insulin Aspart (Novolog Insulin Pen) NOVOLOG *MODERATE* ALGORITHM WITH MEALS BEDTIME SC Last administered on 07/22/18at 12:35; Admin Dose 6 UNIT; Start 07/07/18 at 18:05 Miscellaneous Information 1 ea NOTE XX ; Start 07/09/18 at 17:30 Glucose (Glutose) 15 gm Q15M PRN PO DECREASED GLUCOSE; Start 07/09/18 at 17:30 Glucose (Glutose) 22.5 gm Q15M PRN PO DECREASED GLUCOSE; Start 07/09/18 at 17:30 Dextrose (D50w Syringe) 25 ml Q15M PRN IV DECREASED GLUCOSE; Start 07/09/18 at 17:30 Dextrose (D50w Syringe) 50 ml Q15M PRN IV DECREASED GLUCOSE; Start 07/09/18 at 17:30 Glucagon (Glucagen) 1 mg Q15M PRN IM DECREASED GLUCOSE; Start 07/09/18 at 17:30 Glucose (Glutose) 15 gm Q15M PRN BUCCAL DECREASED GLUCOSE; Start 07/09/18 at 17:30 Famotidine (Pepcid) 20 mg HS PO Last administered on 07/21/18at 23:00; Admin Dose 20 MG; Start 07/10/18 at 21:00 Guaifenesin/ Dextromethorphan (Robitussin Dm Liquid Cup) 10 ml Q4H PRN PO COUGH; Start 07/10/18 at 14:00 Potassium Chloride (Potassium Chloride Pwd/Soln) 40 meq DAILY PO Last administered on 07/22/18at 10:09; Admin Dose 40 MEQ; Start 07/10/18 at 14:00 Zinc Sulfate (Zinc Sulfate) 220 mg DAILY PO Last administered on 07/22/18at 10:09; Admin Dose 220 MG; Start 07/20/18 at 09:00 Multivitamins Therapeutic (Theragran) 1 tab DAILY PO Last administered on 07/22/18at 10:09; Admin Dose 1 TAB; Start 07/20/18 at 09:00 Acetylcysteine (Mucomyst) 1 ml Q8H RESP THERAPY NEB Last administered on 07/22/18at 09:18; Admin Dose 1 ML; Start 07/20/18 at 16:00 Metformin HCl (Glucophage) 500 mg WITH LUNCH PO ; Start 07/25/18 at 12:00 Albuterol/ Ipratropium (Duoneb) 3 ml Q8H RESP THERAPY HHN Last administered on 07/22/18at 09:18; Admin Dose 3 ML; Start 07/22/18 at 00:00 Albuterol (Proventil 0.083% (Neb)) 1.25 mg Q2H RESP THERAPY PRN HHN WHEEZING AND SOB Last administered on 07/21/18at 20:52; Admin Dose 1.25 MG; Start 07/21/18 at 18:00 MALIKA FISHER SUPPLIER MANAGER Jul 22, 2018 12:45
[2018-07-22] MEDS: FAMOTIDINE 20 MG TAB PO SCH (21:31)
[2018-07-22] MEDS: ATORVASTATIN 40 MG TAB PO SCH (21:31)
[2018-07-22] MEDS: ALBUTEROL 0.083% (NEB) 2.5 MG/3 ML AMP HHN PRN (21:33)
[2018-07-22] MEDS: hydrOXYzine HCL 25 MG TAB PO PRN (22:04)
[2018-07-23 01:49] VITALS: BP 117/69; PULSE 84; RESP 20
[2018-07-23] MEDS: ACETYLCYSTEINE 20% 4 ML VIAL NEB SCH ×2 (01:54→07:18)
[2018-07-23] MEDS: ALBUTEROL/IPRATROPIUM (NEB) 3 ML AMP HHN SCH ×2 (01:54→07:18)
[2018-07-23 07:52] VITALS: BP 125/93; PULSE 64; RESP 18
[2018-07-23] MEDS: POTASSIUM CHLORIDE 20 MEQ POWDER FOR ORAL SOLN PO SCH (08:20)
[2018-07-23] MEDS: ZINC SULFATE 220 MG CAP PO SCH (08:21)
[2018-07-23] MEDS: ASCORBIC ACID 500 MG TAB PO SCH (08:21)
[2018-07-23] MEDS: MULTIVITAMINS THERAPEUTIC TAB PO SCH (08:21)
[2018-07-23] MEDS: BACLOFEN 10 MG TAB PO SCH (08:21)
[2018-07-23] MEDS: HEPARIN 5,000 UNIT/1 ML VIAL SC SCH (08:22)
[2018-07-23] MEDS: COLLAGENASE 5 GM (UD JAR) TOP SCH (08:23)
[2018-07-23] MEDS: INSULIN ASPART [NOVOLOG] 3 ML PEN SC SCH (08:23)
[2018-07-23] MEDS: BALSAM PERU/CASTOR OIL 60 GM TUBE TOP SCH (08:24)
[2018-07-23] MEDS: FLUTICASONE 0.05% 16 GM NAS SPRAY NASAL SCH (08:24)
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
[2018-07-25] MEDS ORDERED: metFORMIN 500 MG TAB PO SCH (12:00)
== END 2018-07-23 10:30 | disposition home health service (06) | DRG 871 ==
LOC: E/R 01:56 → PP2 04:04 → TEL 07-09 03:24 → 5EC 07-10 14:07 → ICU 07-12 10:05 → 6WM 07-12 20:24 → 5EC 07-22 08:09
PROVIDERS: ADMIT Internal Medicine; ATTEND Internal Medicine
PROC: 5A09457 Assistance with Respiratory Ventilation, 24-96 Consecutive Hours, Continuous Positive Airway Pressure (ICD-10-PCS; principal; 2018-07-09)
DX: A41.9 Sepsis, unspecified organism (principal); L89.214 Pressure ulcer of right hip, stage 4; J96.22 Acute and chronic respiratory failure with hypercapnia; J96.21 Acute and chronic respiratory failure with hypoxia; J18.9 Pneumonia, unspecified organism; E87.1 Hypo-osmolality and hyponatremia; G82.20 Paraplegia, unspecified; N39.0 Urinary tract infection, site not specified; Z93.0 Tracheostomy status; N31.9 Neuromuscular dysfunction of bladder, unspecified; R19.7 Diarrhea, unspecified; E11.9 Type 2 diabetes mellitus without complications; I10 Essential (primary) hypertension; E78.5 Hyperlipidemia, unspecified; D63.8 Anemia in other chronic diseases classified elsewhere; N20.0 Calculus of kidney; E03.9 Hypothyroidism, unspecified; B96.20 Unspecified Escherichia coli [E. coli] as the cause of diseases classified elsewhere; L08.89 Other specified local infections of the skin and subcutaneous tissue; B95.62 Methicillin resistant Staphylococcus aureus infection as the cause of diseases classified elsewhere; Y95 Nosocomial condition; Z99.3 Dependence on wheelchair; Z79.4 Long term (current) use of insulin; Z93.3 Colostomy status
CPT/HCPCS: 36415; 36600; 71045; 71250; 74176; 80048; 80053; 80061; 80202; 81001; 82270; 82306; 82436; 82550; 82553; 82803; 82962; 83036; 83605; 83690; 83735; 83880; 83930; 83935; 84100; 84133; 84145; 84300; 84439; 84443; 84480; 84484; 85025; 85378; 85610; 85730; 87070; 87075; 87081; 87086; 87400; 92526; 92610; 93005; 93306; 94640; 94660; 94664; 96374; J1335; J1644; J1815; J1940; J1956; J2543; J3370; J3475; J3480; J7030; J7050

== ENCOUNTER 2018-12-14 09:40 | Emergency (ER) | payer OTHER ==
[~2018-12-14] VITALS: Ht 165.1 cm; Wt 75.0 kg
[~2018-12-14 09:40] MED LIST changes: +ACET325T33 PO; -AZIT250T PO; +BALS60OI TOP; +CIPR500T4 PO; -D-ME473S2 PO; +GUAI120S25 PO; -HYDR-4011 PO; +LAS20 PO; +METF-849 PO; +NAPR-985 PO; +POTA20PA23 PO; +SAN30GM TOP
[2018-12-14 10:02] VITALS: BP 80/56; PULSE 85; RESP 20; Ht 165.1 cm; Wt 75.0 kg
== END 2018-12-14 12:42 | disposition home or self-care (01) ==
LOC: FTE 09:40
DX: R51 Headache (principal); N39.0 Urinary tract infection, site not specified; Z79.84 Long term (current) use of oral hypoglycemic drugs
CPT/HCPCS: 70450; 81001; 87086; Z7502